=== PATIENT | female | born 1980 | race Caucasian/White ===

== ENCOUNTER 2016-12-01 09:30 | Outpatient (CLI) | payer BC, MEDICAID ==
[~2016-12-01] VITALS: Ht 149.9 cm; Wt 45.4 kg
[~2016-12-01 09:30] MED LIST: ACHD5005 PO; AGM875T PO; AMOX500C2 PO; CEFD300C3 PO; DICL50TA4 PO; FERR325C PO; FLC150T PO; FLT05NA16 NSEACH; FLUC200T45 PO; HYDR-3454 PO; HYDR-3720 PO; METH4TAB PO; NF-ESOM40C PO; NITR-65 PO; OMEP40CA36 PO; ONDA-42 PO; ONDA-43 PO; ONDA8TAB9 PO; ONDAN4ODT PO; PNT40TEC PO; PROM25SU43 RC; PTU50T PO; SCR1T1 PO
[2016-12-05] MEDS ORDERED: SUCR1TAB36 PO (11:08)
[2017-01-12] MEDS ORDERED: ONDA8TAB9 PO (14:23)
[2017-01-12] MEDS ORDERED: OXYC-202 PO (14:23)
== END 2016-12-01 10:06 ==
LOC: PREOP 09:30
PROVIDERS: ATTEND Surgery
DX: Z01.818 Encounter for other preprocedural examination (principal); K21.9 Gastro-esophageal reflux disease without esophagitis; K92.1 Melena

== ENCOUNTER 2016-12-05 09:25 | Day surgery (SDC) | payer BC, MEDICAID ==
[~2016-12-05] VITALS: Ht 149.9 cm; Wt 45.4 kg
[2016-12-05] MEDS ORDERED: NS IV 1000 ML 1,000 ML IV STA (09:38)
--- NOTE | 2016-12-05 09:47 | Progress Note-Pre Operative ---
Pre-Operative Progress Note H&P Reviewed The H&P was reviewed, patient examined and no changes noted. Date H&P Reviewed: Dec 05, 2016 Time H&P Reviewed: 09:46 Pre-Operative Diagnosis: epigastric abominal pain, blood in stools, reflux KASH GUADALUPE DO Dec 05, 2016 09:46
[2016-12-05] MEDS ORDERED: NS IV 1000 ML 1,000 ML ONE (09:55)
[2016-12-05] MEDS ORDERED: proPOfol 200 MG/20 ML (DIPRIVAN) VIAL IV ONE (10:23)
[2016-12-05 10:35] VITALS: BP 122/77
[2016-12-05] MEDS ORDERED: HURRICAINE EXT TUBE (BENZOCAINE) XX ONE (11:00)
--- NOTE | 2016-12-05 11:07 | Progress Note-Post Operative ---
Post-Operative Progess Note Pre-Operative Diagnosis epigastric abominal pain, blood in stools, reflux Post-Operative Diagnosis gastric polyps, hiatal hernia, normal colon Post-Op Procedure Note Date of Procedure: Dec 05, 2016 Name of Procedure: egd c biopsy, colonoscopy Procedure Note/Findings see note Anesthesia Type per mda Estimated blood loss (mL): none Specimen(s) collected antrum KASH GUADALUPE DO Dec 05, 2016 11:07
[2016-12-05] MEDS ORDERED: SUCR1TAB36 PO (11:08)
--- NOTE | 2016-12-05 11:09 | Discharge Inst-Simple/Standard ---
Discharge Inst-Standard Discharge Medications New, Converted or Re-Newed RX: Transmitted to Pharmacy Patient Instructions/Follow Up Plan of Care/Instructions/FU: 3 weeks Adri Activity as Tolerated: Yes Discharge Diet: Regular Diet (frequent small meals) KASH GUADALUPE DO Dec 05, 2016 11:09
[2016-12-05 11:20] VITALS: BP 103/71
[2016-12-05 11:50] VITALS: BP 112/73
[2016-12-05 12:02] VITALS: BP 112/73
[2016-12-05] MEDS ORDERED: HURRICAINE EXT TUBE (BENZOCAINE) ONE (12:08)
--- NOTE | 2016-12-06 09:58 | PROCEDURE REPORT ---
PROCEDURE PHYSICIAN: KASH GUADALUPE DATE OF PROCEDURE: 12/05/2016 PREOPERATIVE DIAGNOSIS: 1. Epigastric abdominal pain. 2. Blood in stools. 3. Reflux. POSTOPERATIVE DIAGNOSES: 1. Gastric polyp. 2. Hiatal hernia. 3. Normal colon. PROCEDURE: 1. EGD with biopsy. 2. Colonoscopy. SURGEON: Adri. ANESTHESIA: Per MDA. ESTIMATED BLOOD LOSS: None. COMPLICATIONS: None. INDICATIONS: The patient is a 36-year-old female who has been having epigastric abdominal pain and has a history of reflux. She feels that she is getting an ulcer. She has had it before. She also has been having intermittent episodes of blood in her stools that are more bright red. She was explained risk and benefits of procedures and wished to proceed with procedures. Consent was signed on the chart. PROCEDURE: The patient was taken to the endoscopy suite, placed left in the left lateral recumbent position. Timeout was performed. The scope was inserted in the mouth down the esophagus, stomach and into the duodenum without difficulty. There were no polyps, masses, or ulcerations within the duodenum. The scope was slowly retracted back into the stomach which had some small polyps present. Normal appearance. Biopsy of the antrum was obtained. There are no erythematous changes. No ulcerations present. The scope was retroflexed noting a small to moderate sized hiatal hernia. No other pathology noted. The scope was returned as normal position slowly withdrawn. There were no polyps, masses, ulcerations or erythema in the distal esophagus the remainder of the esophagus. The scope was then slowly retracted until completely removed. COLONOSCOPY: Digital rectal exam was performed. There were no palpable polyps, masses, ulcerations or fissures present. The scope was inserted in the rectum and advanced all of the way to the cecum with minimal difficulty. Prep was adequate with irrigation and suction. There were no polyps, masses or ulcerations within the cecum, ascending, transverse, descending or sigmoid colon. There are no mucosal changes as well. In the rectum, the scope was also retroflexed noting no other pathology. The scope was returned to its normal position and slowly withdrawn into completely remove. RECOMMENDATIONS: The patient will add on some Carafate 1 gram 4 times a day to see if this has any improvement on her symptoms. We also consider changing her to Protonix, rather than the omeprazole. The patient will follow-up in approximately 3 weeks to see how she is doing. She will need a repeat colonoscopy according to normal screening guidelines at age 50 unless there is family history of colon cancer which would be 10 years before that. Job ID: [id number] Dictated Date: 12/05/2016 11:13:49 Pantograph Operator Date: 12/06/2016 09:50:19 / marquez
[2017-01-12] MEDS ORDERED: ONDA8TAB9 PO (14:23)
[2017-01-12] MEDS ORDERED: OXYC-202 PO (14:23)
== END 2016-12-05 12:00 | disposition home or self-care (01) ==
LOC: ENDO 09:25
PROVIDERS: ATTEND Surgery
DX: K92.1 Melena (principal); K21.9 Gastro-esophageal reflux disease without esophagitis; K44.9 Diaphragmatic hernia without obstruction or gangrene; K31.7 Polyp of stomach and duodenum
CPT/HCPCS: 84703; 88305

== ENCOUNTER 2017-01-10 15:36 | Outpatient (CLI) | payer BC, MEDICAID ==
[~2017-01-10] VITALS: Ht 149.9 cm; Wt 50.8 kg
[~2017-01-10 15:36] MED LIST changes: +SUCR1TAB36 PO
[2017-01-10] MEDS ORDERED: PANT40TA2 PO (15:47)
[2017-01-10] MEDS ORDERED: NORE0.35 PO (15:47)
[2017-01-10 15:51] VITALS: BP 123/83
[2017-01-10 16:17] LABS: BASOPHILS # (AUTO) 0.1 10^3/uL (0.0-0.1); BASOPHILS % (AUTO) 1 % (0-10); EOSINOPHILS # (AUTO) 0.2 10^3/uL (0.0-0.3); EOSINOPHILS % (AUTO) 2 % (0-10); LYMPHOCYTES # (AUTO) 3.4 X 10^3 (1.0-4.0); LYMPHOCYTES % (AUTO) 35 % (12-44); MEAN CORPUSCULAR HEMOGLOBIN 29 PG (25-34); MEAN CORPUSCULAR HGB CONC 33 G/DL (32-36); MEAN CORPUSCULAR VOLUME 89 FL (80-99); MEAN PLATELET VOLUME 10.7 FL (7.4-10.4); MONOCYTES # (AUTO) 0.8 X 10^3 (0.0-1.0); MONOCYTES % (AUTO) 8 % (0-12); NEUTROPHILS # (AUTO) 5.3 X 10^3 (1.8-7.8); NEUTROPHILS % (AUTO) 54 % (42-75); PLATELET COUNT 327 10^3/uL (130-400); RED BLOOD COUNT 4.13 10^6/uL (4.35-5.85); RED CELL DISTRIBUTION WIDTH 12.9 % (10.0-14.5); WHITE BLOOD COUNT 9.7 10^3/uL (4.3-11.0)
[2017-01-12] MEDS ORDERED: OXYC-202 PO (14:23)
[2017-01-12] MEDS ORDERED: ONDA8TAB9 PO (14:23)
== END 2017-01-10 16:20 | disposition home or self-care (01) ==
LOC: PREOP 15:36
PROVIDERS: ATTEND Obstetrics & Gynecology
DX: Z01.812 Encounter for preprocedural laboratory examination (principal); Z11.2 Encounter for screening for other bacterial diseases; R10.2 Pelvic and perineal pain; Z87.42 Personal history of other diseases of the female genital tract
CPT/HCPCS: 36415; 85025; 87081

== ENCOUNTER 2017-01-12 12:21 | Day surgery (SDC) | payer BC, MEDICAID ==
[~2017-01-12] VITALS: Ht 149.9 cm; Wt 50.8 kg
[~2017-01-12 12:21] MED LIST changes: +NORE0.35 PO; +PANT40TA2 PO
[2017-01-12] MEDS ORDERED: ceFAZolin 1 GM/NS 50 ML IVPB IV ONE ×2 (12:45)
[2017-01-12] MEDS ORDERED: CATHETER FLUSH 10 ML SYR IV PRN (12:45)
[2017-01-12] MEDS ORDERED: ceFAZolin 1,000 MG (ANCEF) VIAL ONE (13:08)
[2017-01-12 13:09] VITALS: BP 112/60
[2017-01-12] MEDS ORDERED: NS (IVPB) 50 ML ONE (13:09)
[2017-01-12] MEDS ORDERED: ONDANSETRON 4 MG/2 ML (SDV) Z0FRAN IV ONE (13:15)
[2017-01-12] MEDS ORDERED: FAMOTIDINE 20MG/2ML IV (PEPCID) IV ONE (13:15)
[2017-01-12] MEDS ORDERED: SCOPOLAMINE 1.5 MG (TRANSDERM-SCOP) PATCH TOP ONE (13:15)
[2017-01-12] MEDS: LACTATED RINGERS 1,000 ML IV PRN ×3 (13:21→15:30)
[2017-01-12] MEDS ORDERED: BUP/EPI 0.25% 1:200,000 (MARCAINE) 30 ML VIAL ONE (13:29)
[2017-01-12] MEDS ORDERED: proPOfol 200 MG/20 ML (DIPRIVAN) VIAL IV ONE (13:30)
[2017-01-12] MEDS ORDERED: fentaNYL INJECTION 100 MCG/2 ML AMP ONE ×2 (13:30→15:36)
[2017-01-12] MEDS ORDERED: ROCURONIUM 50 MG/5 ML (ZEMURON) VIAL IV ONE (13:30)
[2017-01-12] MEDS ORDERED: MIDAZOLAM 2 MG/2 ML (VERSED) VIAL ONE (13:30)
--- NOTE | 2017-01-12 14:21 | Progress Note-Pre Operative ---
Pre-Operative Progress Note H&P Reviewed The H&P was reviewed, patient examined and no changes noted. Date H&P Reviewed: Jan 12, 2017 Time H&P Reviewed: 14:20 Pre-Operative Diagnosis: chronic pelvic pain with a history of endometriosis/ DUB/menorrhagia TAMMY FRANCO MD Jan 12, 2017 2:21 pm
[2017-01-12] MEDS ORDERED: OXYC-202 PO (14:23)
[2017-01-12] MEDS ORDERED: ONDA8TAB9 PO (14:23)
--- NOTE | 2017-01-12 14:25 | Discharge Instructions ---
Discharge Instructions Discharge Medications New, Converted or Re-Newed RX: RX on Chart Patient Instructions Patient Instructions: as directed Return to The Hospital For: as directed Activity & Diet Discharge Diet: No Restrictions Activity as Tolerated: No Orders-Post D/C & Referrals Follow Up Appt: Call to make follow up appt. for patient in 1 weeks. Activity: Rest for 24 hours, than as tolerated. Wound Care: May remove Band-Aid tomorrow. Replace as desired. Keep incisions clean and dry. Wash daily with soap and water. Diet: As tolerated-Clear Liquids only if nauseated. May shower or tub bathe as desired. No driving for 24 hours, no alcoholic beverages for 24 hours, and nothing per vagina (no tampons, douching, or intercourse) for 2 weeks. Patient to return to the clinic as soon as possible for: Temperature greater than 101F, Severe Pain, Foul discharge from incision or vagina, Excessive Bleeding (more than a period). TAMMY FRANCO MD Jan 12, 2017 2:25 pm
[2017-01-12] MEDS ORDERED: KETOROLAC 30 MG/ML VIAL IVP ONE (14:30)
[2017-01-12] MEDS ORDERED: MEPERIDINE (DEMEROL) INJ 100 MG/ML IM ONE (14:30)
[2017-01-12] MEDS ORDERED: ESTROGENS CONJ IV 25 MG/5 ML (PREMARIN) VIAL IVP ONE (14:30)
[2017-01-12] MEDS ORDERED: DEXAMETHASONE PF 10 MG/ML (DECADRON) VIAL ONE (15:01)
[2017-01-12] MEDS ORDERED: LACTATED RINGERS 1,000 ML IV ONE ×3 (15:01→15:35)
[2017-01-12] MEDS ORDERED: ONDANSETRON 4 MG/2 ML (SDV) Z0FRAN ONE ×2 (15:01→15:35)
[2017-01-12] MEDS ORDERED: SEVOFLURANE (ULTANE) 15 ML INHAL SOLN ONE ×5 (15:01→15:36)
[2017-01-12] MEDS ORDERED: ESTROGENS CONJ IV 25 MG/5 ML (PREMARIN) VIAL ONE (15:30)
[2017-01-12] MEDS ORDERED: KETOROLAC 30 MG/ML VIAL ONE ×2 (15:30→15:35)
[2017-01-12] MEDS ORDERED: WATER (STERILE) FOR INJECTION 10 ML ONE (15:30)
[2017-01-12] MEDS ORDERED: GLYCOPYRROLATE 0.2 MG/ML (ROBINUL) 2 ML VIAL ONE (15:43)
[2017-01-12] MEDS ORDERED: NEOSTIGMINE (BLOXIVERZ ) 1 MG/1ML 10 ML VIAL ONE (15:43)
[2017-01-12] MEDS: morphine INJ 10 MG/ML 1ML (SYR OR VIAL) IVP PRN ×2 (16:10→16:16)
[2017-01-12] MEDS ORDERED: MEPERIDINE (DEMEROL) INJ 50 MG/ML IVP PRN (16:15)
[2017-01-12] MEDS ORDERED: fentaNYL INJECTION 100 MCG/2 ML AMP IVP PRN (16:15)
[2017-01-12] MEDS ORDERED: ONDANSETRON 4 MG/2 ML (SDV) Z0FRAN IVP PRN (16:15)
[2017-01-12] MEDS ORDERED: HYDROmorphone (DILAUDID) 2 MG/ML VIAL IVP PRN (16:15)
[2017-01-12 16:50] VITALS: BP 109/61
[2017-01-12] MEDS: oxyCODONE/APAP 10/325MG (PERCOCET 10) TABLET PO PRN (17:01)
[2017-01-12] MEDS: D5 LR IV SOLUTION 1,000 ML IV SCH ×3 (17:31→22:23)
[2017-01-12] MEDS: ONDANSETRON 4 MG/2 ML (SDV) Z0FRAN IVP PRN ×2 (18:13→23:10)
[2017-01-12 19:10] VITALS: BP 96/53
[2017-01-13] VITALS: BP 112/72
[2017-01-13] MEDS: oxyCODONE/APAP 10/325MG (PERCOCET 10) TABLET PO PRN ×2 (00:44→10:35)
[2017-01-13] MEDS: D5 LR IV SOLUTION 1,000 ML IV SCH ×3 (00:45→08:50)
[2017-01-13] MEDS: ONDANSETRON 4 MG/2 ML (SDV) Z0FRAN IVP PRN ×2 (02:40→10:34)
[2017-01-13 04:00] VITALS: BP 111/76
--- NOTE | 2017-01-13 06:31 | Progress Note-Standard ---
Standard Progress Note Progress Notes/Assess & Plan Progress/Assessment & Plan patient is without complaint. She is ambulating, voiding, tolerating by mouth well, has good pain control. Her nausea has resolved. Vital Signs Date Time Temp Pulse Resp B/P (MAP) Pulse Ox O2 Delivery O2 Flow Rate FiO2 01/13/17 00:00 98.0 66 18 112/72 95 Room Air 01/12/17 21:00 Room Air 01/12/17 19:10 97.0 60 16 96/53 99 Room Air 01/12/17 18:26 Room Air 01/12/17 16:50 97.8 61 18 109/61 98 Room Air 01/12/17 13:09 98.6 60 18 112/60 100 Room Air I & O 01/13/17 07:00 Intake Total 2450 ml Output Total 200 ml Balance 2250 ml vital signs are stable. Patient afebrile. The abdomen is benign. There is normal postoperative tenderness. Extremities show no clubbing cyanosis. There is no Homans sign. Assessment and plan postoperative day number 1 doing well. Plan is for discharge home with follow-up in clinic. Final Diagnosis chronic pelvic pain/endometriosis/right hydrosalpinx TAMMY FRANCO MD Jan 13, 2017 6:31 am
[2017-01-13 08:30] VITALS: BP 95/58
--- NOTE | 2017-01-13 10:57 | OPERATIVE REPORT ---
DATE OF SERVICE: 01/12/2017 PREOPERATIVE DIAGNOSIS: Chronic pelvic pain with a history of endometriosis and right hydrosalpinx. POSTOPERATIVE DIAGNOSIS: Chronic pelvic pain with a history of endometriosis and right hydrosalpinx with recurrent endometriosis, pelvic adhesions, and right hydrosalpinx. The patient also in preop had dysfunctional uterine bleeding and menorrhagia and in the postop had the same. OPERATIVE PROCEDURE: D and C followed by a laparoscopic right salpingectomy, laparoscopic adhesiolysis, and laparoscopic destruction of endometriosis. OPERATIVE DESCRIPTION: With the patient in the supine position and under satisfactory general anesthesia, she was repositioned dorsal lithotomy position in the [facility] and prepped and draped in the usual fashion for abdominal and vaginal surgery. The urinary bladder was emptied with a straight catheter. Weighted speculum placed through the posterior fornix of the vagina, cervix exposed and grasped anteriorly with a single tooth tenaculum. The uterus was sounded to 9 cm with the uterine sound. The cervix was then serially dilated with Earl dilators to a #20 Earl. The endometrial cavity was then sharply curettaged in all 4 quadrants to good uterine cri with a sharp curette. The tissue obtained was sent to pathology for permanent section. The uterine manipulator was then placed in the ____ there. The patient was brought in the low dorsal lithotomy position with the speculum and tenaculum removed. A 5 mm incision made in the patient's left upper quadrant. Veress needle was placed through that incision, correct placement confirmed with the water drop test. The abdomen was insufflated with 2.4 liters of carbon dioxide. Then the Veress needle was removed, and a 5 mm Optiview laparoscopic port placed. The patient was placed in Trendelenburg allowing the bowels to ____ out of the pelvis. The abdominal wall was transilluminated and ports of 12 mm and 5 mm were placed supraumbilically and suprapubically. All 3 port sites were infiltrated with 0.25% Marcaine with epinephrine prior to incision. The uterus was densely adherent to the anterior lower wall and over the occlusion obstructing the visualization of the bladder. The round ligaments were adherent to the pelvic sidewalls. The right fallopian tube, the proximal 2/3 was involved in an approximately 2 cm dilated hydrosalpinx. There was endometriosis along the fallopian tube. There was endometriosis causing the fallopian tube to be adherent to the right ovary. The left tube was normal. There was a corpus luteal cyst on the left that ruptured during the process of inspecting it, releasing an aliquot of clear straw yellow fluid. There were adhesions of the sigmoid to the left pelvic brim, obstructing visualization of the tube and ovary. These adhesions were first taken free and then with the tube and ovary visualized, supple endometriosis implants on the left fallopian tube were destroyed. The cul-de-sac was examined. There was no abnormal pathology noted. The right fallopian tube was grasped and elevated because of the persistent hydrosalpinx that had been noted on a previous surgery she had requested that the fallopian tube be removed and that was deemed to be appropriate intervention at this point. The fallopian tube was resected by dividing across the mesosalpinx to the base of the salpinx, and then an Endoloop was placed across the base of the fallopian tube and secured, and then the fallopian tube was resected free and brought out through the umbilical port. The patient's appendix was surgically absent. That site appeared normal. The endometrial implants and the ovarian fossa were touched were electrocautery to destroy them. the adhesions on the anterior surface of the uterus were taken free to increase the mobility of the organ that was not taken completely free down the bladder from the lower uterine segment because the dense nature of these adhesions and the likelihood that without hysterectomy she was going to form potentially even worse adhesions. So the balance of the adhesions were left in situ. The pelvis was irrigated and examined. Hemostasis was at complete with no further abnormal pathology and the procedure was terminated. The operative instruments were removed under direct vision, as were the ports. The abdomen was evacuated with insufflating gas in the process. The skin incisions were closed with nylon sutures. The fascia of the supraumbilical incision was closed with [id number] suture of 2-0 Vicryl. The uterine manipulator bowl was drained. The instruments were removed from the uterus and from the vagina. Speculum was replaced in the vagina. Some bleeding from the puncture sites on the anterior cervical lip. This was touched with silver nitrate to effect hemostasis. With hemostasis assured and sponge and needle counts correct, estimated blood loss minimal, the procedure was terminated. Sponge and needle counts were correct at the end of the procedure. The patient tolerated the procedure well and was uneventfully awakened from general anesthesia and transferred to the recovery room in stable condition. Job ID: [id number] DocumentID: [id number] Dictated Date: 01/12/2017 15:39:10 Sheet Metal Operator Date: 01/12/2017 18:13:45 Dictated By: TAMMY FRANCO MD
[2017-01-13 12:00] VITALS: BP 100/60
[2017-01-13 15:58] VITALS: BP 97/55
[2017-01-13 17:09] VITALS: BP 100/60
== END 2017-01-13 17:15 | disposition home or self-care (01) ==
LOC: SDC 12:21 → 4TH 17:49 → SDC 01-13 17:15
PROVIDERS: ATTEND Obstetrics & Gynecology
DX: N80.2 Endometriosis of fallopian tube (principal); N70.11 Chronic salpingitis; N93.8 Other specified abnormal uterine and vaginal bleeding; N92.0 Excessive and frequent menstruation with regular cycle; N83.12 Corpus luteum cyst of left ovary; N73.6 Female pelvic peritoneal adhesions (postinfective)
CPT/HCPCS: 84703; 88305

== ENCOUNTER 2017-03-04 04:49 | Emergency (ER) | payer BC, MEDICAID ==
[~2017-03-04] VITALS: Ht 149.9 cm; Wt 48.5 kg
[~2017-03-04 04:49] MED LIST changes: +OXYC-202 PO
[2017-03-04] MEDS ORDERED: NS IV 1000 ML 1,000 ML IV STA (05:06)
[2017-03-04] MEDS ORDERED: fentaNYL INJECTION 100 MCG/2 ML AMP IVP STA (05:06)
[2017-03-04 05:14] LABS: BASOPHILS # (AUTO) 0.1 10^3/uL (0.0-0.1); BASOPHILS % (AUTO) 0 % (0-10); EOSINOPHILS # (AUTO) 0.2 10^3/uL (0.0-0.3); EOSINOPHILS % (AUTO) 2 % (0-10); LYMPHOCYTES # (AUTO) 2.4 X 10^3 (1.0-4.0); LYMPHOCYTES % (AUTO) 17 % (12-44); MEAN CORPUSCULAR HEMOGLOBIN 28 PG (25-34); MEAN CORPUSCULAR HGB CONC 33 G/DL (32-36); MEAN CORPUSCULAR VOLUME 86 FL (80-99); MEAN PLATELET VOLUME 10.2 FL (7.4-10.4); MONOCYTES # (AUTO) 1.1 X 10^3 (0.0-1.0); MONOCYTES % (AUTO) 8 % (0-12); NEUTROPHILS # (AUTO) 10.3 X 10^3 (1.8-7.8); NEUTROPHILS % (AUTO) 73 % (42-75); PLATELET COUNT 357 10^3/uL (130-400); RED BLOOD COUNT 4.41 10^6/uL (4.35-5.85); RED CELL DISTRIBUTION WIDTH 13.7 % (10.0-14.5); WHITE BLOOD COUNT 14.1 10^3/uL (4.3-11.0)
[2017-03-04] MEDS ORDERED: ONDANSETRON 4 MG/2 ML (SDV) Z0FRAN IVP ONE (05:15)
--- NOTE | 2017-03-04 05:30 | ED Abdominal Pain ---
General Chief Complaint: Abdominal/GI Problems Stated Complaint: VOMITING Nursing Triage Note: PT TO ED 5 W/ MOTHER FOR C/O N/V/D ET ABD PAIN ONSET 0300 THIS AM. REPORTS SYMPTOMS ONSET AFTER EATING AT PICKLED [employer]S LAST NOC. NO OTHER C/O VOICED Sepsis Screen: No Definite Risk Source of Information: Patient Exam Limitations: No Limitations History of Present Illness Time Seen By Provider: 05:00 Initial Comments Here with onset of abdominal pain that comes in waves. Started about 3 a.m. and is quite severe when it happens. When the pain occurs, this causes vomiting. She reports having at least 3 bowel movements that are becoming progressively looser tonight. Denies fever or chills. Denies blood in her urine or stool. Timing/Duration: 1-3 Hours Severity/Quality: Moderate Location: Epigastric Radiation: RUQ, LUQ Activities at Onset: None Modifying Factors: Worsens With Eating Associated Symptoms: No Back Pain, No Chest Pain, No Fever/Chills, Nausea/ Vomiting, No Shortness of Air, No Swelling/Mass in Abdomen, No Weakness Allergies and Home Medications Allergies Coded Allergies: No Known Drug Allergies (Unverified , 01/10/17) Home Medications Norethindrone 0.35 Mg Tablet, 0.35 MG PO DAILY, (Reported) Ondansetron 8 Mg Tab.rapdis, 8 MG PO PD PRN for q4h, #20 Prescribed by: TAMMY BREEN on 01/12/17 1423 Oxycodone HCl/Acetaminophen 1 Each Tablet, 1-2 TAB PO Q4H PRN for PAIN, #60 Ref 0 Prescribed by: TAMMY BREEN on 01/12/17 1423 Pantoprazole Sodium 40 Mg Tablet.dr, 40 MG PO DAILY, (Reported) Review of Systems Constitutional: see HPI, No chills, No fever Respiratory: No Symptoms Reported Cardiovascular: No Symptoms Reported Gastrointestinal: See HPI, Abdominal Pain, Diarrhea, Nausea, Vomiting Genitourinary: No Symptoms Reported Musculoskeletal: no symptoms reported Psychiatric/Neurological: No Symptoms Reported All Other Systems Reviewed Negative Unless Noted: Yes Past Waxcqrk-Zwqnzw-Ogedon Hx Patient Social History Alcohol Use: Denies Use Recreational Drug Use: No Smoking Status: Never a Smoker Recent Foreign Travel: No Contact w/Someone Who Travel: No Recent Infectious Disease Expo: No Recent Hopitalizations: No Immunizations Up To Date Tetanus Booster (TDap): Unknown PED Vaccines UTD: Yes Date of Influenza Vaccine: Jul 22, 2014 Seasonal Allergies Seasonal Allergies: No Surgeries HX Surgeries: Yes (ECTOPIC REMOVED, C/S X2, DX LAPAROSCOPY, ) Surgeries: Appendectomy, Section, Gallbladder Respiratory Hx Respiratory Disorders: No Cardiovascular Hx Cardiac Disorders: No (HX. OF MURMUR ; BORN WITH MURMUR) Cardiac Disorders: Heart Murmur Neurological Hx Neurological Disorders: Yes Neurological Disorders: Headaches /Migraines Reproductive System Hx Reproductive Disorders: Yes (CPP, ENOMETRIOSIS) Sexually Transmitted Disease: Yes (HPV) Female Reproductive Disorders: Endometriosis, Ovarian Cyst Genitourinary Hx Genitourinary Disorders: No Gastrointestinal Hx Gastrointestinal Disorders: Yes Gastrointestinal Disorders: Gastroesophageal Reflux, Ulcer Musculoskeletal Hx Musculoskeletal Disorders: Yes (FROM ENDOMETRIOSIS) Musculoskeletal Disorders: Chronic Back Pain Endocrine Hx Endocrine Disorders: Yes (BOARDERLINE) HEENT HX ENT Disorders: No (CONTACTS) Loss of Vision: Bilateral Hearing Impairment: Denies Cancer Hx Cancer: No Psychosocial Hx Psychiatric Problems: Yes Behavioral Health Disorders: Anxiety Integumentary HX Skin/Integumentary Disorder: No Blood Transfusions Hx Blood Disorders: No Adverse Reaction to a Blood Tr: No (N/A) Reviewed Nursing Assessment Reviewed/Agree w Nursing PMH: Yes Family Medical History Significant Family History: No Pertinent Family Hx Physical Exam Vital Signs VS - Last 72 Hours, by Label 03/04/17 04:51 Temp 98.1 Pulse 79 Resp 20 B/P (MAP) 140/99 Pulse Ox 99 O2 Delivery Room Air Capillary Refill : Less Than 3 Seconds General Appearance: WD/WN, moderate distress (abdominal pain) HEENT: PERRL/EOMI, pharynx normal Neck: full range of motion, supple Respiratory: lungs clear, normal breath sounds Cardiovascular: regular rate, rhythm, no murmur Peripheral Pulses: 2+ Dorsalis Pedis (R), 2+ Left Dors-Pedis (L), 2+ Radial Pulses (R), 2+ Radial Pulses (L) Gastrointestinal: soft, tenderness (upper abdomen bilaterally with greatest pain epigastric) Extremities: non-tender, normal inspection Back: normal inspection, no CVA tenderness, no vertebral tenderness Neurologic/Psychiatric: alert, oriented x 3 Skin: normal color, warm/dry Progress/Results/Core Measures Results/Orders Lab Results Laboratory Tests Test 03/04/17 05:03 Range/Units White Blood Count 14.1 H 4.3-11.0 10^3/uL Red Blood Count 4.41 4.35-5.85 10^6/uL Hemoglobin 12.4 11.5-16.0 G/DL Hematocrit 38 35-52 % Mean Corpuscular Volume 86 80-99 FL Mean Corpuscular Hemoglobin 28 25-34 PG Mean Corpuscular Hemoglobin Concent 33 32-36 G/DL Red Cell Distribution Width 13.7 10.0-14.5 % Platelet Count 357 130-400 10^3/uL Mean Platelet Volume 10.2 7.4-10.4 FL Neutrophils (%) (Auto) 73 42-75 % Lymphocytes (%) (Auto) 17 12-44 % Monocytes (%) (Auto) 8 0-12 % Eosinophils (%) (Auto) 2 0-10 % Basophils (%) (Auto) 0 0-10 % Neutrophils # (Auto) 10.3 H 1.8-7.8 X 10^3 Lymphocytes # (Auto) 2.4 1.0-4.0 X 10^3 Monocytes # (Auto) 1.1 H 0.0-1.0 X 10^3 Eosinophils # (Auto) 0.2 0.0-0.3 10^3/uL Basophils # (Auto) 0.1 0.0-0.1 10^3/uL Neutrophils % (Manual) 70 % Lymphocytes % (Manual) 16 % Monocytes % (Manual) 6 % Eosinophils % (Manual) 2 % Basophils % (Manual) 0 % Band Neutrophils 0 % Reactive Lymphocytes 6 % Toxic Granulation 1+ Blood Morphology Comment NORMAL Sodium Level 141 135-145 MMOL/L Potassium Level 3.9 3.6-5.0 MMOL/L Chloride Level 108 H 98-107 MMOL/L Carbon Dioxide Level 21 21-32 MMOL/L Anion Gap 12 5-14 MMOL/L Blood Urea Nitrogen 13 7-18 MG/DL Creatinine 0.76 0.60-1.30 MG/DL Estimat Glomerular Filtration Rate > 60 BUN/Creatinine Ratio 17 Glucose Level 94 70-105 MG/DL Calcium Level 9.4 8.5-10.1 MG/DL Total Bilirubin 0.5 0.1-1.0 MG/DL Aspartate Amino Transf (AST/SGOT) 18 5-34 U/L Alanine Aminotransferase (ALT/SGPT) 24 0-55 U/L Alkaline Phosphatase 61 40-136 U/L Total Protein 7.2 6.4-8.2 G/DL Albumin 3.9 3.2-4.5 G/DL Amylase Level 61 25-125 U/L Lipase 21 8-78 U/L My Orders Orders - RANDOLPH LARA MD Amylase (03/04/17 05:06) Cbc With Automated Diff (03/04/17 05:06) Comprehensive Metabolic Panel (03/04/17 05:06) Lipase (03/04/17 05:06) Ondansetron Injection (Zofran Injectio (03/04/17 05:15) Ns Iv 1000 Ml (Sodium Chloride 0.9%) (03/04/17 05:06) Saline Lock/Iv-Start (03/04/17 05:06) Fentanyl Injection (Sublimaze Injection (03/04/17 05:06) Manual Differential (03/04/17 05:03) Acute Abd Series (03/04/17 05:55) Dicyclomine Capsule (Bentyl Capsule) (03/04/17 06:00) Medications Given in ED Current Medications Medications Dose Ordered Sig/Carlos Route Start Time Stop Time Status Last Admin Dose Admin Ondansetron HCl 4 mg ONCE ONCE IVP 03/04/17 05:15 03/04/17 05:16 DC 03/04/17 05:15 4 MG Vital Signs/I&O Vital Sign - Last 12Hours 03/04/17 04:51 Temp 98.1 Pulse 79 Resp 20 B/P (MAP) 140/99 Pulse Ox 99 O2 Delivery Room Air Blood Pressure Mean: 113 Progress Note : Progress Note Seen and evaluated. IV, labs, normal saline 1 L bolus, fentanyl 50 g IV ordered. Acute abdominal series ordered. Monitor patient. Patient is improved after fentanyl. Bentyl 20 mg by mouth ordered. Monitor patient. 0650 : Patient much better. No acute findings on acute abdominal series. Discharged home with return precautions. Patient verbalize understanding instructions and agreement with plan. Diagnostic Imaging Diagonstic Imaging: Xray Plain Films/CT/US/NM/MRI: chest, abdomen Comments No acute findings. Reviewed: Reviewed by Me Departure Impression Impression: Primary Impression: Epigastric abdominal pain Disposition: HOME, SELF-CARE Condition: Improved Departure-Patient Inst. Decision time for Depature: 06:57 Referrals: ENZO CYR MD (PCP) Primary Care Physician Patient Instructions: Acute Abdomen (Belly Pain), Adult (DC) Add. Discharge Instructions: All discharge instructions reviewed with patient and/or family. Voiced understanding. Take medications as directed. Follow-up with your doctor this week for recheck and further evaluation. Return for worsening, fever, vomiting or weakness, breathing problems or other concerns as needed. Scripts Dicyclomine HCl (Dicyclomine HCl) 20 Mg Tablet 20 MG PO Q6H Y for ABDOMINAL PAIN, #45 TAB 0 Refills Prov: RANDOLPH LARA MD 03/04/17 RANDOLPH LARA MD Mar 04, 2017 05:30
[2017-03-04 05:44] LABS: ALANINE AMINOTRANSFERASE 24 U/L (0-55); ALBUMIN 3.9 G/DL (3.2-4.5); AMYLASE 61 U/L (25-125); ANION GAP 12 MMOL/L (5-14); ASPARTATE AMINO TRANSFERASE 18 U/L (5-34); BILIRUBIN,TOTAL 0.5 MG/DL (0.1-1.0); BLOOD UREA NITROGEN 13 MG/DL (7-18); BUN/CREATININE RATIO 17; CALCIUM 9.4 MG/DL (8.5-10.1); CARBON DIOXIDE 21 MMOL/L (21-32); CHLORIDE 108 MMOL/L (98-107); CREATININE SERUM 0.76 MG/DL (0.60-1.30); GFR ESTIMATED > 60; GLUCOSE 94 MG/DL (70-105); LIPASE 21 U/L (8-78); POTASSIUM 3.9 MMOL/L (3.6-5.0); SODIUM 141 MMOL/L (135-145); TOTAL PROTEIN 7.2 G/DL (6.4-8.2)
[2017-03-04 05:48] LABS: BAND NEUTROPHILS 0 %; LYMPHOCYTES % (MANUAL) 16 %; NEUTROPHILS % (MANUAL) 70 %
[2017-03-04 05:49] LABS: BASOPHILS % (MANUAL) 0 %; EOSINOPHILS % (MANUAL) 2 %; REACTIVE LYMPHOCYTES 6 %
[2017-03-04] MEDS ORDERED: DICYCLOMINE 10 MG (BENTYL) CAP PO SCH (06:00)
[2017-03-04] MEDS ORDERED: DICY20TA10 PO (06:58)
[2017-03-04 07:05] VITALS: BP 132/64
--- NOTE | 2017-03-04 10:24 | Diagnostic Imaging Report ---
INDICATION: Nausea, vomiting, diarrhea and abdominal pain for 3 hours. EXAMINATION: Abdomen series dated 03/04/2017. COMPARISON: 02/10/2013 FINDINGS: Chest is unremarkable. There is no free air beneath the diaphragm. Scattered air and stool through the colon to the rectosigmoid noted. There are clips in the right upper quadrant consistent with previous cholecystectomy. A more laterally located linear hyperdensity is noted of uncertain significance. This could represent a separate clip with a recently swallowed material difficult to exclude clinical correlation recommended. IMPRESSION: 1. Nonobstructive bowel gas pattern with negative chest. 2. Nonspecific linear density lateral to the clips in the right upper quadrant see above discussion. Dictated by: Dictated on workstation # [id number]
== END 2017-03-04 07:05 | disposition home or self-care (01) ==
LOC: EDUNIT# 04:49 → ER 04:50
DX: R10.13 Epigastric pain (principal); K21.9 Gastro-esophageal reflux disease without esophagitis; Z90.49 Acquired absence of other specified parts of digestive tract
CPT/HCPCS: 36415; 74022; 80053; 82150; 83690; 85007; 85027; 99282

== ENCOUNTER → 2017-05-29 | Outpatient (CLI) | payer BC, MEDICAID ==
[~2017-05-29] MED LIST changes: +DICY20TA10 PO
--- NOTE | 2017-05-31 08:19 | Diagnostic Imaging Report ---
INDICATION: Digital mammogram bilateral screening. This is the patient's baseline study. At this time, there are no current complaints. The current study was also evaluated with a Computer Aided Detection (CAD) system. FINDINGS: The fibroglandular tissue in both breasts is heterogeneously dense. This does limit the sensitivity of this exam. There is no primary or secondary sign of malignancy noted. The tomographic views were also unremarkable for malignancy. IMPRESSION: There is no evidence of malignancy. ACR BI-RADS Category 1: Negative. Result letter will be mailed to the patient. Note: At least 10% of breast cancer is not imaged by mammography. Dictated by: Dictated on workstation # [id number]
== END ==
LOC: RAD 08:48
PROVIDERS: ATTEND Obstetrics & Gynecology
DX: Z12.31 Encounter for screening mammogram for malignant neoplasm of breast (principal)
CPT/HCPCS: 77067

== ENCOUNTER 2018-01-10 13:59 | Emergency (ER) | payer BC, MEDICAID ==
[~2018-01-10] VITALS: Ht 149.9 cm; Wt 46.7 kg
[~2018-01-10 13:59] MED LIST changes: -NORE0.35 PO; +NORE0.3536 PO
[2018-01-10] MEDS ORDERED: HYDROcodone/APAP 5 MG/325 MG (LORTAB) TAB PO ONE (14:15)
[2018-01-10] MEDS ORDERED: HYDR-757 PO (14:15)
[2018-01-10] MEDS ORDERED: LIDOCAINE 2% 20 ML (XYLOCAINE) VIAL INJ ONE (14:15)
--- NOTE | 2018-01-10 14:16 | ED Integumentary General ---
General Stated Complaint: ABSCESS ON REAREND Source: patient Exam Limitations: no limitations History of Present Illness Date Seen by Provider: Jan 10, 2018 Time Seen by Provider: 14:11 Initial Comments to ER come in by mother per private vehicle with reports of an abscess to the left buttock. This is been present for about 3 days. She is currently on Bactrim and was[facility] by [facility]. She has not yet had incision and drainage done. She denies fevers chills nausea or vomiting. Also a few days ago she developed an erythematous papulovesicular rash to the right lateral chest wall starting at the midline of her back wrapping around the side of the chest to the center. She is on acyclovir for this. She is not on anything for pain currently. Timing/Duration: just prior to arrival Severity: moderate Allergies and Home Medications Allergies Coded Allergies: No Known Drug Allergies (Unverified , 01/10/17) Home Medications Dicyclomine HCl 20 Mg Tablet, 20 MG PO Q6H PRN for ABDOMINAL PAIN Prescribed by: RANDOLPH LARA on 03/04/17 0658 Hydrocodone/Acetaminophen 1 Each Tablet, 1 EACH PO Q4H PRN for PAIN-MODERATE TO SEVERE Prescribed by: ALIYA ELY on 01/10/18 1415 Norethindrone 0.35 Mg Tablet, 0.35 MG PO DAILY, (Reported) Ondansetron 8 Mg Tab.rapdis, 8 MG PO PD PRN for q4h Prescribed by: TAMMY BREEN on 01/12/17 1423 Oxycodone HCl/Acetaminophen 1 Each Tablet, 1-2 TAB PO Q4H PRN for PAIN Prescribed by: TAMMY BREEN on 01/12/17 1423 Pantoprazole Sodium 40 Mg Tablet.dr, 40 MG PO DAILY, (Reported) Patient Home Medication List Home Medication List Reviewed: Yes Constitutional: see HPI EENTM: see HPI Respiratory: no symptoms reported Cardiovascular: no symptoms reported Genitourinary: no symptoms reported Musculoskeletal: see HPI Skin: see HPI, lesions Psychiatric/Neurological: No Symptoms Reported Past Hfrlwmx-Ddbxen-Ldlokd Hx Patient Social History Recent Foreign Travel: No Contact w/Someone Who Travel: No Recent Hopitalizations: No Immunizations Up To Date Tetanus Booster (TDap): Unknown PED Vaccines UTD: Yes Date of Influenza Vaccine: Jul 22, 2014 Seasonal Allergies Seasonal Allergies: No Past Medical History Surgeries: Yes (ECTOPIC REMOVED, C/S X2, DX LAPAROSCOPY, SALPINGECTOMY) Appendectomy, Section, Gallbladder Respiratory: No Cardiac: No (HX. OF MURMUR ; BORN WITH MURMUR) Heart Murmur Neurological: Yes Headaches /Migraines Reproductive Disorders: Yes (CPP, ENOMETRIOSIS) Female Reproductive Disorders: Endometriosis, Ovarian Cyst Sexually Transmitted Disease: Yes (HPV) Gastrointestinal: Yes Gastroesophageal Reflux, Ulcer Musculoskeletal: Yes (FROM ENDOMETRIOSIS) Chronic Back Pain Endocrine: Yes (BOARDERLINE) Loss of Vision: Bilateral Hearing Impairment: Denies Cancer: No Psychosocial: Yes Anxiety Integumentary: No Blood Disorders: No Adverse Reaction/Blood Tranf: No (N/A) Family Medical History No Pertinent Family Hx Physical Exam Vital Signs Capillary Refill : General Appearance: WD/WN, no apparent distress HEENT: PERRL/EOMI, normal ENT inspection Neck: non-tender, full range of motion Cardiovascular: regular rate, rhythm, no murmur, other (she does have a papular rash to the right lateral chest wall starting at the spine and wrapping around the right side of the chest terminating just beneath the right breast. She states that the anterior portion of the rash is pruritic, the posterior portion is more painful. I agree with the diagnosis of herpes zoster.) Respiratory: no respiratory distress Extremities: normal range of motion, non-tender Neurologic/Psychiatric: alert, normal mood/affect, oriented x 3 Skin: normal color, warm/dry Skin Problem Character: abscess (there is a 2 cm indurated area to the left buttock over the issue him, this is not perianal. There is a small punctum in the center but without drainage. Around the 2 cm of induration is an additional 3 cm of erythema.) Procedures/Interventions I&D : Blade Size: 11 Progress area was anesthetized with 1 mL of 2% lidocaine without epinephrine. A single stab incision 0.5-1 cm was made with an 11 blade scalpel over the punctum of this wound. Somesanguinous material was expressed. Loculations were then broken up with blunt end of a sterile Q-tip. The cavity was a bit deeper than my incisions I believe there was a fluid collection here. However there was no purulent appearing material. This was covered with gauze, she was instructed to continue warm compresses, continue Bactrim and return for any worsening symptoms. Progress/Results/Core Measures My Orders Orders - ALIYA ELY APRN Wound Culture (01/10/18 14:10) Hydrocodone/Apap 5/325 Tablet (Lortab 5 (01/10/18 14:15) Lidocaine 2% Injection 20 Ml (Xylocaine (01/10/18 14:15) Medications Given in ED Current Medications Medications Dose Ordered Sig/Carlos Route Start Time Stop Time Status Last Admin Dose Admin Acetaminophen/ Hydrocodone Bitart 1 tab ONCE ONCE PO 01/10/18 14:15 01/10/18 14:16 DC 01/10/18 14:16 1 TAB Lidocaine HCl 20 ml ONCE ONCE INJ 01/10/18 14:15 01/10/18 14:16 DC 01/10/18 14:16 20 ML Departure Impression Primary Impression: Abscess of buttock, left Additional Impression: Shingles Disposition: 01 HOME, SELF-CARE Condition: Stable Departure-Patient Inst. Decision time for Depature: 14:14 Referrals: NO,LOCAL PHYSICIAN (PCP/Family) Primary Care Physician Patient Instructions: Abscess Incision and Drainage Add. Discharge Instructions: 1. Warm compresses to this area, showering and bathing is fine. Expect some drainage over the next few days, this is a good thing. Continue the Bactrim antibiotics. This is a great choice for abscesses. You should notice improvement within the next 48 hours after this drainage. Pain medication as needed. Scripts Hydrocodone/Acetaminophen ([place] 5-325 Tablet) 1 Each Tablet 1 EACH PO Q4H PRN for PAIN-MODERATE TO SEVERE, #20 TAB Prov: ALIYA ELY APRN 01/10/18 ALIYA ELY APRN Jan 10, 2018 14:16
[2018-01-10] MEDS ORDERED: ACYC800T (14:33)
[2018-01-10] MEDS ORDERED: SULF-222 (14:33)
[2018-01-10 14:49] VITALS: BP 109/72
[2018-01-11] MEDS ORDERED: MUPI22OI2 TP (09:19)
[2018-01-15] MEDS ORDERED: CLIN300C11 PO (08:33)
== END 2018-01-10 14:49 | disposition home or self-care (01) ==
LOC: EDUNIT# 13:59 → ER 14:01
DX: L02.31 Cutaneous abscess of buttock (principal); B02.9 Zoster without complications; G43.909 Migraine, unspecified, not intractable, without status migrainosus; K21.9 Gastro-esophageal reflux disease without esophagitis; F41.9 Anxiety disorder, unspecified; Z87.19 Personal history of other diseases of the digestive system; Z86.19 Personal history of other infectious and parasitic diseases; Z87.448 Personal history of other diseases of urinary system; Z90.49 Acquired absence of other specified parts of digestive tract; Z87.59 Personal history of other complications of pregnancy, childbirth and the puerperium
CPT/HCPCS: 10060; 87070; 87077; 87186; 87205

== ENCOUNTER 2018-01-11 08:19 | Emergency (ER) | payer MEDICAID ==
[~2018-01-11] VITALS: Ht 149.9 cm; Wt 46.7 kg
[~2018-01-11 08:19] MED LIST changes: +ACYC800T; +HYDR-757 PO; +SULF-222
--- OUTSIDE RECORDS SUMMARY | 2018-01-11 08:26 | XMS REPORT | Continuity of Care Document ---
Author Author [facility] Address Unknown Phone Unavailable Allergies Active Description Code Type Severity Reaction Onset Reported/Identified Relationship to Patient Clinical Status Yes No Known Drug Allergies [id number] Drug Allergy Unknown N/A 01/10/2017 Medications There is no data. Problems Date Dx Coded Attending Type Code Diagnosis Diagnosed By 03/02/2010 MAGY JACKSON DDS V72.42 TEST POSITIVE RESULT 03/02/2010 MAE CANALES DO V72.42 TEST POSITIVE RESULT 10/19/2010 Ot 648.11 THYROID DYSFUNC-DELIVER 10/19/2010 Ot 654.21 PREV DELIVRY W/ OR W/O MENT ANT 10/19/2010 Ot V06.1 DIPHTHERIA- TETANUS-PERTUSSIS, COMBINED [ 10/19/2010 Ot V27.0 DELIVER- SINGLE LIVEBORN 02/11/2013 AUGUSTA AYON DO Ot 530.81 ESOPHAGEAL REFLUX 02/11/2013 AUGUSTA AYON DO Ot 564.00 UNSPEC CONSTIPATION 02/11/2013 AUGUSTA AYON DO Ot 599.0 URIN TRACT INFECTION NOS 02/11/2013 AUGUSTA AYON DO Ot 787.02 NAUSEA ALONE 05/27/2013 JANNETH LI Ot 473.9 CHRONIC SINUSITIS NOS 05/27/2013 JANNETH LI Ot 784.0 HEADACHE 08/19/2013 KASH GUADALUPE DO Ot 535.50 UNSP GASTRITIS GASTRODUODENITIS W/O ME 08/19/2013 KASH GUADALUPE DO Ot 553.3 DIAPHRAGMATIC HERNIA 11/09/2013 JONAS SMITH MD Ot 521.00 UNSPEC DENTAL CARIES 11/09/2013 JONAS SMITH MD Ot 525.9 DENTAL DISORDER NOS 11/09/2013 JONAS SMITH MD Ot 787.02 NAUSEA ALONE 01/28/2014 AUGUSTA AYON DO Ot 473.9 CHRONIC SINUSITIS NOS 01/28/2014 GABO AUGUSTA Baker Ot 525.9 DENTAL DISORDER NOS 06/20/2014 MAE CANALES DO 599.0 URINARY TRACT INFECTION 07/23/2014 TAMMY FRANCO MD Ot 540.9 ACUTE APPENDICITIS NOS 07/23/2014 TAMMY FRANCO MD Ot 614.6 FEM PELVIC PERITON ADH-POST-OP/INF 07/23/2014 TAMMY FRANCO MD Ot 617.9 ENDOMETRIOSIS NOS 07/23/2014 TAMMY FRANCO MD Ot 620.2 OVARIAN CYST NEC/NOS 07/23/2014 TAMMY FRANCO MD Ot 625.5 PELVIC CONGESTION SYND 08/11/2014 BERNARD MCNEILL, TEO Oviedo Ot 789.06 08/18/2014 KASH GUADALUPE DO Ot 575.11 CHRONIC CHOLECYSTITIS 08/18/2014 KASH GUADALUPE DO Ot 575.8 08/26/2014 BERNARD MNCEILL, TEO Oviedo Ot 789.06 08/31/2014 KASH GUADALUPE DO Ot 787.02 08/31/2014 KASH GUADALUPE DO Ot 789.06 08/31/2014 KASH GUADALUPE DO Ot 793.3 08/31/2014 KASH GUADALUPE DO Ot 575.8 08/31/2014 KASH GUADALUPE DO Ot V72.63 08/31/2014 KASH GUADALUPE DO Ot V74.8 09/02/2014 BERNARD MCNEILL, TEO [place]viedo Ot 789.06 09/10/2014 BERNARD MCNEILL, TEO Oviedo Ot 789.06 09/14/2014 TEO WAGNER MD Ot 789.06 09/15/2014 TEO WAGNER MD Ot 789.06 09/15/2014 TEO WAGNER MD Ot 789.06 05/21/2016 AUGUSTA AYON DO Ot K52.9 NONINFECTIVE GASTROENTERITIS AND COLITIS 05/21/2016 AUGUSTA AYON DO Ot R11.2 NAUSEA WITH VOMITING, UNSPECIFIED 05/23/2016 AUGUSTA AYON DO Ot K52.9 NONINFECTIVE GASTROENTERITIS AND COLITIS 05/23/2016 AUGUSTA AYON DO Ot R11.2 NAUSEA WITH VOMITING, UNSPECIFIED 05/24/2016 AUGUTSA AYON DO Ot K52.9 NONINFECTIVE GASTROENTERITIS AND COLITIS 05/24/2016 AUGUSTA AYON DO Ot R11.2 NAUSEA WITH VOMITING, UNSPECIFIED 08/16/2016 ALIYA ELY APRN Ot M54.5 LOW BACK PAIN 08/16/2016 ALIYA ELY APRN Ot N83.201 UNSPECIFIED OVARIAN CYST, RIGHT SIDE 08/16/2016 ALIYA ELY MECHANICAL LEAD Ot N83.202 UNSPECIFIED OVARIAN CYST, LEFT SIDE 08/18/2016 SHELLY ESTHELA BONILLA Ot M54.5 LOW BACK PAIN 08/18/2016 SHELLY DOESTHELA Ot R10.31 RIGHT LOWER QUADRANT PAIN 08/18/2016 SHELLY DOESTHELA Ot R10.32 LEFT LOWER QUADRANT PAIN 08/18/2016 ALIYA ELY APRN Ot M54.5 LOW BACK PAIN 08/18/2016 ALIYA ELY MECHANICAL LEAD Ot N83.201 UNSPECIFIED OVARIAN CYST, RIGHT SIDE 08/18/2016 ALIYA ELY MECHANICAL LEAD Ot N83.202 UNSPECIFIED OVARIAN CYST, LEFT SIDE 12/01/2016 KASH GUADALUPE DO Ot K21.9 GASTRO-ESOPHAGEAL REFLUX DISEASE WITHOUT 12/01/2016 GUADALUPEKASH HANNAH DO Ot K92.1 MELENA 12/01/2016 KASH GUADALUPE DO Ot Z01.818 ENCOUNTER FOR OTHER PREPROCEDURAL EXAMIN 12/01/2016 KASH GUAADLUPE DO Ot K21.9 GASTRO-ESOPHAGEAL REFLUX DISEASE WITHOUT 12/01/2016 KASH GUADALUPE DO Ot K92.1 MELENA 12/01/2016 KASH GUADALUPE DO Ot Z01.818 ENCOUNTER FOR OTHER PREPROCEDURAL EXAMIN 12/05/2016 GUADALUPEKASH HANNAH DO Ot V72.84 EXAM PRE-OPERATIVE NOS 12/05/2016 BERNARD MCNEILL, TEO [place] Ot 787.01 NAUSEA WITH VOMITING 12/05/2016 BERNARD MCNEILL, TEO [place] Ot 789.01 ABDOMINAL PAIN, RIGHT UPPER QUADRANT 12/05/2016 BERNARD MCNEILL, TEO [place] Ot 789.06 ABDOMINAL PAIN, EPIGASTRIC 12/05/2016 BERNARD MCNEILL, TEO [place] Ot 787.01 NAUSEA WITH VOMITING 12/05/2016 BERNARD MCNEILL, TEO [place] Ot 789.01 ABDOMINAL PAIN, RIGHT UPPER QUADRANT 12/05/2016 BERNARD MCNEILL, TEO [place] Ot 789.06 ABDOMINAL PAIN, EPIGASTRIC 12/05/2016 JOSH MCNEILL, GELY Boone Ot 787.02 NAUSEA ALONE 12/05/2016 GELY MORENO MD Ot 789.06 ABDOMINAL PAIN, EPIGASTRIC 12/05/2016 TAMMY FRANCO MD Ot 285.9 ANEMIA NOS 12/05/2016 TAMMY FRANCO MD Ot 625.9 FEM GENITAL SYMPTOMS NOS 12/05/2016 TAMMY FRANCO MD Ot V72.63 PRE-PROCEDURAL LABORATORY EXAMINATION 12/05/2016 TAMMY FRANCO MD Ot V74.8 SCREEN-BACTERIAL DIS NEC 12/05/2016 BERNARD MCNEILL, TEO [place] Ot 789.06 ABDOMINAL PAIN, EPIGASTRIC 12/05/2016 KASH GUADALUPE DO Ot 787.02 NAUSEA ALONE 12/05/2016 KASH GUADALUPE DO Ot 789.06 ABDOMINAL PAIN, EPIGASTRIC 12/05/2016 KASH GUADALUPE DO Ot 793.3 NOSP (ABN) FINDINGS ON RADIOLOGICAL OT 12/05/2016 KASH GUADALUPE DO Ot 575.8 DIS OF GALLBLADDER NEC 12/05/2016 KASH GUADALUPE DO Ot V72.63 PRE-PROCEDURAL LABORATORY EXAMINATION 12/05/2016 KASH GUADALUPE DO Ot V74.8 SCREEN-BACTERIAL DIS NEC 12/05/2016 KASH GUADALUPE DO Ot K21.9 GASTRO-ESOPHAGEAL REFLUX DISEASE WITHOUT 12/05/2016 KEISHA GUADALUPE DOTT D Ot K31.7 POLYP OF STOMACH AND DUODENUM 12/05/2016 KASH GUADALUPE DO Ot K44.9 DIAPHRAGMATIC HERNIA WITHOUT OBSTRUCTION 12/05/2016 KASH GUADALUPE DO D Ot K92.1 MELENA 12/06/2016 GUADALUPEBRIELLE BONILLA KASH D Ot K21.9 GASTRO-ESOPHAGEAL REFLUX DISEASE WITHOUT 12/06/2016 ANAYELI BONILLA KASH D Ot K31.7 POLYP OF STOMACH AND DUODENUM 12/06/2016 KASH GUADALUPE DO D Ot K44.9 DIAPHRAGMATIC HERNIA WITHOUT OBSTRUCTION 12/06/2016 KEISHA GUADALUPE DOTT D Ot K92.1 MELENA 12/11/2016 KASH GUADALUPE DO D Ot K21.9 GASTRO-ESOPHAGEAL REFLUX DISEASE WITHOUT 12/11/2016 KASH GUADALUPE DO Ot K31.7 POLYP OF STOMACH AND DUODENUM 12/11/2016 KASH GUADALUPE DO Ot K44.9 DIAPHRAGMATIC HERNIA WITHOUT OBSTRUCTION 12/11/2016 KASH GUADALUPE DO Ot K92.1 MELENA 01/10/2017 KASH GUADALUPE DO Ot V72.84 EXAM PRE-OPERATIVE NOS 01/10/2017 BERNARD MCNEILL, TEO [place] Ot 787.01 NAUSEA WITH VOMITING 01/10/2017 BERNARD MCNEILL, TEO [place] Ot 789.01 ABDOMINAL PAIN, RIGHT UPPER QUADRANT 01/10/2017 BERNARD MCNEILL, TEO [place] Ot 789.06 ABDOMINAL PAIN, EPIGASTRIC 01/10/2017 BERNARD MCNEILL, TEO [place] Ot 787.01 NAUSEA WITH VOMITING 01/10/2017 BERNARD MCNEILL, TEO [place] Ot 789.01 ABDOMINAL PAIN, RIGHT UPPER QUADRANT 01/10/2017 BERNARD MCNEILL, TEO [place] Ot 789.06 ABDOMINAL PAIN, EPIGASTRIC 01/10/2017 GELY MORENO MD Ot 787.02 NAUSEA ALONE 01/10/2017 GELY MORENO MD Ot 789.06 ABDOMINAL PAIN, EPIGASTRIC 01/10/2017 TAMMY FRANCO MD Ot 285.9 ANEMIA NOS 01/10/2017 TAMMY FRANCO MD Ot 625.9 FEM GENITAL SYMPTOMS NOS 01/10/2017 TAMMY FRANCO MD, Ot V72.63 PRE-PROCEDURAL LABORATORY EXAMINATION 01/10/2017 TAMMY FRANCO MD, Ot V74.8 SCREEN-BACTERIAL DIS NEC 01/10/2017 BERNARD MCNEILL, TEO Oviedo Ot 789.06 ABDOMINAL PAIN, EPIGASTRIC 01/10/2017 KASH GUADALUPE DO Ot 787.02 NAUSEA ALONE 01/10/2017 KASH GUADALUPE DO Ot 789.06 ABDOMINAL PAIN, EPIGASTRIC 01/10/2017 KASH GUADALUPE DO Ot 793.3 NOSP (ABN) FINDINGS ON RADIOLOGICAL OT 01/10/2017 KASH GUADALUPE DO Ot 575.8 DIS OF GALLBLADDER NEC 01/10/2017 KASH GUADALUPE DO Ot V72.63 PRE-PROCEDURAL LABORATORY EXAMINATION 01/10/2017 KASH GUADALUPE DO Ot V74.8 SCREEN-BACTERIAL DIS NEC 01/10/2017 TAMMY FRANCO MD Ot R10.2 PELVIC AND PERINEAL PAIN 01/10/2017 TAMMY FRANCO MD, Ot Z01.812 ENCOUNTER FOR PREPROCEDURAL LABORATORY E 01/10/2017 TAMMY FRANCO MD, Ot Z11.2 ENCOUNTER FOR SCREENING FOR OTHER BACTER 01/10/2017 TAMMY FRANCO MD, Ot Z87.42 PERSONAL HISTORY OF OTH DISEASES OF THE 01/11/2017 TAMMY FRANCO MD, Ot R10.2 PELVIC AND PERINEAL PAIN 01/11/2017 TAMMY FRANCO MD, Ot Z01.812 ENCOUNTER FOR PREPROCEDURAL LABORATORY E 01/11/2017 TAMMY FRANCO MD, Ot Z11.2 ENCOUNTER FOR SCREENING FOR OTHER BACTER 01/11/2017 TAMMY FRANCO MD, Ot Z87.42 PERSONAL HISTORY OF OTH DISEASES OF THE 01/13/2017 TAMMY FRANCO MD, Ot N70.11 CHRONIC SALPINGITIS 01/13/2017 TAMMY FRANCO MD, Ot N73.6 FEMALE PELVIC PERITONEAL ADHESIONS (POST 01/13/2017 TAMMY FRANCO MD, Ot N80.2 ENDOMETRIOSIS OF FALLOPIAN TUBE 01/13/2017 TAMMY FRANCO MD, Ot N83.12 CORPUS LUTEUM CYST OF LEFT OVARY 01/13/2017 TAMMY FRANCO MD, Ot N92.0 EXCESSIVE AND FREQUENT MENSTRUATION WITH 01/13/2017 TAMMY FRANCO MD, Ot N93.8 OTHER SPECIFIED ABNORMAL UTERINE AND VAG 01/16/2017 TAMMY FRANCO MD, Ot R10.2 PELVIC AND PERINEAL PAIN 01/16/2017 TAMMY FRANCO MD, Ot Z01.812 ENCOUNTER FOR PREPROCEDURAL LABORATORY E 01/16/2017 TAMMY FRANCO MD, Ot Z11.2 ENCOUNTER FOR SCREENING FOR OTHER BACTER 01/16/2017 TAMMY FRANCO MD, Ot Z87.42 PERSONAL HISTORY OF OTH DISEASES OF THE 01/18/2017 TAMMY FRANCO MD, Ot N70.11 CHRONIC SALPINGITIS 01/18/2017 TAMMY FRANCO MD, Ot N73.6 FEMALE PELVIC PERITONEAL ADHESIONS (POST 01/18/2017 TAMMY FRANCO MD, Ot N80.2 ENDOMETRIOSIS OF FALLOPIAN TUBE 01/18/2017 TAMMY FRANCO MD Ot N83.12 CORPUS LUTEUM CYST OF LEFT OVARY 01/18/2017 TAMMY FRANCO MD Ot N92.0 EXCESSIVE AND FREQUENT MENSTRUATION WITH 01/18/2017 TAMMY FRANCO MD Ot N93.8 OTHER SPECIFIED ABNORMAL UTERINE AND VAG 01/26/2017 TAMMY FRANCO MD Ot N70.11 CHRONIC SALPINGITIS 01/26/2017 TAMMY FRANCO MD Ot N73.6 FEMALE PELVIC PERITONEAL ADHESIONS (POST 01/26/2017 TAMMY FRANCO MD, Ot N80.2 ENDOMETRIOSIS OF FALLOPIAN TUBE 01/26/2017 TAMMY FRANCO MD Ot N83.12 CORPUS LUTEUM CYST OF LEFT OVARY 01/26/2017 TAMMY FRANCO MD Ot N92.0 EXCESSIVE AND FREQUENT MENSTRUATION WITH 01/26/2017 TAMMY FRANCO MD Ot N93.8 OTHER SPECIFIED ABNORMAL UTERINE AND VAG 03/04/2017 RANDOLPH LARA MD Ot K21.9 GASTRO-ESOPHAGEAL REFLUX DISEASE WITHOUT 03/04/2017 RANDOLPH LARA MD Ot R10.13 EPIGASTRIC PAIN 03/04/2017 RANDOLPH LARA MD Ot R10.31 RIGHT LOWER QUADRANT PAIN 03/04/2017 RANDOLPH LARA MD Ot Z90.49 ACQUIRED ABSENCE OF OTHER SPECIFIED PART 05/21/2017 KASH GUADALUPE DO Ot V72.84 EXAM PRE-OPERATIVE NOS 05/21/2017 BERNARD MCNEILL, TEO Oviedo Ot 787.01 NAUSEA WITH VOMITING 05/21/2017 BERNARD MCNEILL, TEO Oviedo Ot 789.01 ABDOMINAL PAIN, RIGHT UPPER QUADRANT 05/21/2017 TEO WAGNER MD Ot 789.06 ABDOMINAL PAIN, EPIGASTRIC 05/21/2017 TEO WAGNER MD Ot 787.01 NAUSEA WITH VOMITING 05/21/2017 TEO WAGNER MD Ot 789.01 ABDOMINAL PAIN, RIGHT UPPER QUADRANT 05/21/2017 TEO WAGNER MD Ot 789.06 ABDOMINAL PAIN, EPIGASTRIC 05/21/2017 JOSH MCNEILL, GELY Boone Ot 787.02 NAUSEA ALONE 05/21/2017 GELY MORENO MD Ot 789.06 ABDOMINAL PAIN, EPIGASTRIC 05/21/2017 TAMMY FRANCO MD Ot 285.9 ANEMIA NOS 05/21/2017 TAMMY FRANCO MD Ot 625.9 FEM GENITAL SYMPTOMS NOS 05/21/2017 TAMMY FRANCO MD, Ot V72.63 PRE-PROCEDURAL LABORATORY EXAMINATION 05/21/2017 TAMMY FRANCO MD, Ot V74.8 SCREEN-BACTERIAL DIS NEC 05/21/2017 BERNARD MCNEILL, TEO Ov[place]o Ot 789.06 ABDOMINAL PAIN, EPIGASTRIC 05/21/2017 KASH GUADALUPE DO Ot 787.02 NAUSEA ALONE 05/21/2017 KASH GUADALUPE DO Ot 789.06 ABDOMINAL PAIN, EPIGASTRIC 05/21/2017 KASH GUADALUPE DO Ot 793.3 NOSP (ABN) FINDINGS ON RADIOLOGICAL OT 05/21/2017 KASH GUADALUPE DO Ot 575.8 DIS OF GALLBLADDER NEC 05/21/2017 KASH GUADALUPE DO Ot V72.63 PRE-PROCEDURAL LABORATORY EXAMINATION 05/21/2017 KASH GUADALUPE DO Ot V74.8 SCREEN-BACTERIAL DIS NEC 06/14/2017 TAMMY FRANCO MD, Ot Z12.31 ENCNTR SCREEN MAMMOGRAM FOR MALIGNANT NE 07/04/2017 TAMMY FRANCO MD, Ot N70.11 CHRONIC SALPINGITIS 07/04/2017 TAMMY FRANCO MD, Ot N73.6 FEMALE PELVIC PERITONEAL ADHESIONS (POST 07/04/2017 TAMMY FRANCO MD, Ot N80.2 ENDOMETRIOSIS OF FALLOPIAN TUBE 07/04/2017 TAMMY FRANCO MD, Ot N83.12 CORPUS LUTEUM CYST OF LEFT OVARY 07/04/2017 TAMMY FRANCO MD, Ot N92.0 EXCESSIVE AND FREQUENT MENSTRUATION WITH 07/04/2017 TAMMY FRANCO MD, Ot N93.8 OTHER SPECIFIED ABNORMAL UTERINE AND VAG Procedures Code Description Performed By Performed On 72.9 INSTRUMENT DELIVERY NOS 10/16/2010 74.1 LOW CERVICAL 10/16/2010 99.77 APPL/ADMIN OF AN ADHESION BARRIER SUBSTA 10/16/2010 24003 UA W/ CULTURE IF INDICATED 06/20/2014 Results Test Result Range Complete blood count (CBC) with automated white blood cell (WBC) differential - 05/21/16 21:24 Blood leukocytes automated count (number/volume) 11.1 10*3/uL 4.3-11.0 Blood erythrocytes automated count (number/volume) 4.71 10*6/uL 4.35-5.85 Venous blood hemoglobin measurement (mass/volume) 14.0 g/dL 11.5-16.0 Blood hematocrit (volume fraction) 42 % 35-52 Automated erythrocyte mean corpuscular volume 88 [foz_us] 80-99 Automated erythrocyte mean corpuscular hemoglobin (mass per erythrocyte) 30 pg 25-34 Automated erythrocyte mean corpuscular hemoglobin concentration measurement ( mass/volume) 34 g/dL 32-36 Automated erythrocyte distribution width ratio 13.0 % 10.0-14.5 Automated blood platelet count (count/volume) 239 10*3/uL 130-400 Automated blood platelet mean volume measurement 11.2 [foz_us] 7.4-10.4 Automated blood neutrophils/100 leukocytes 89 % 42-75 Automated blood lymphocytes/100 leukocytes 8 % 12-44 Blood monocytes/100 leukocytes 3 % 0-12 Automated blood eosinophils/100 leukocytes 0 % 0-10 Automated blood basophils/100 leukocytes 0 % 0-10 Blood neutrophils automated count (number/volume) 9.9 10*3 1.8-7.8 Blood lymphocytes automated count (number/volume) 0.8 10*3 1.0-4.0 Blood monocytes automated count (number/volume) 0.3 10*3 0.0-1.0 Automated eosinophil count 0.0 10*3/uL 0.0-0.3 Automated blood basophil count (count/volume) 0.0 10*3/uL 0.0-0.1 Complete urinalysis with reflex to culture - 05/21/16 21:24 Urine color determination YELLOW NRG Urine clarity determination SLIGHTLY CLOUDY NRG Urine pH measurement by test strip 5 5-9 Specific gravity of urine by test strip 1.025 1.016- 1.022 Urine protein assay by test strip, semi-quantitative NEGATIVE NEGATIVE Urine glucose detection by automated test strip NEGATIVE NEGATIVE Erythrocytes detection in urine sediment by light microscopy NEGATIVE NEGATIVE Urine ketones detection by automated test strip 4+ NEGATIVE Urine nitrite detection by test strip NEGATIVE NEGATIVE Urine total bilirubin detection by test strip NEGATIVE NEGATIVE Urine urobilinogen measurement by automated test strip (mass/volume) NORMAL NORMAL Urine leukocyte esterase detection by dipstick 1+ NEGATIVE Automated urine sediment erythrocyte count by microscopy (number/high power field) NONE NRG Automated urine sediment leukocyte count by microscopy (number/high power field ) [HPF] NRG Bacteria detection in urine sediment by light microscopy FEW NRG Squamous epithelial cells detection in urine sediment by light microscopy 10-25 NRG Crystals detection in urine sediment by light microscopy NONE NRG Casts detection in urine sediment by light microscopy NONE NRG Mucus detection in urine sediment by light microscopy NEGATIVE NRG Complete urinalysis with reflex to culture NO NR Comprehensive metabolic panel - 05/21/16 21:24 Serum or plasma sodium measurement (moles/volume) 139 mmol/L 135-145 Serum or plasma potassium measurement (moles/volume) 3.8 mmol/L 3.6-5.0 Serum or plasma chloride measurement (moles/volume) 108 mmol/L 98-107 Carbon dioxide 19 mmol/L 21-32 Serum or plasma anion gap determination (moles/volume) 12 mmol/L 5-14 Serum or plasma urea nitrogen measurement (mass/volume) 14 mg/dL 7-18 Serum or plasma creatinine measurement (mass/volume) 0.69 mg/dL 0.60-1.30 Serum or plasma urea nitrogen/creatinine mass ratio 20 NRG Serum or plasma creatinine measurement with calculation of estimated glomerular filtration rate > NRG Serum or plasma glucose measurement (mass/volume) 82 mg/dL 70-105 Serum or plasma calcium measurement (mass/volume) 9.4 mg/dL 8.5-10.1 Serum or plasma total bilirubin measurement (mass/volume) 2.5 mg/dL 0.1-1.0 Serum or plasma alkaline phosphatase measurement (enzymatic activity/volume) 57 U/L 40-136 Serum or plasma aspartate aminotransferase measurement (enzymatic activity/ volume) 25 U/L 5-34 Serum or plasma alanine aminotransferase measurement (enzymatic activity/volume ) 32 U/L 0-55 Serum or plasma protein measurement (mass/volume) 6.8 g/dL 6.4-8.2 Serum or plasma albumin measurement (mass/volume) 4.4 g/dL 3.2-4.5 Serum or plasma amylase measurement (enzymatic activity/volume) - 05/21/16 21: 24 Serum or plasma amylase measurement (enzymatic activity/volume) 70 U /L 25-125 Lipase - 05/21/16 21:24 Lipase 6 U/L 8-78 Blood manual differential performed detection - 05/21/16 21:24 Blood monocytes/100 leukocytes 4 % NRG Manual blood segmented neutrophils/100 leukocytes 75 % NRG Blood band neutrophils/100 leukocytes 4 % NRG Manual blood lymphocytes/100 leukocytes 15 % NRG Manual eosinophils/100 leukocytes in nose 0 % NRG Manual blood basophils/100 leukocytes 2 % NRG Blood erythrocyte morphology finding identification NORMAL NRG Complete blood count (CBC) with automated white blood cell (WBC) differential - 08/16/16 20:50 Blood leukocytes automated count (number/volume) 12.3 10*3/uL 4.3-11.0 Blood erythrocytes automated count (number/volume) 4.66 10*6/uL 4.35-5.85 Venous blood hemoglobin measurement (mass/volume) 13.9 g/dL 11.5-16.0 Blood hematocrit (volume fraction) 40 % 35-52 Automated erythrocyte mean corpuscular volume 86 [foz_us] 80-99 Automated erythrocyte mean corpuscular hemoglobin (mass per erythrocyte) 30 pg 25-34 Automated erythrocyte mean corpuscular hemoglobin concentration measurement ( mass/volume) 35 g/dL 32-36 Automated erythrocyte distribution width ratio 13.2 % 10.0-14.5 Automated blood platelet count (count/volume) 269 10*3/uL 130-400 Automated blood platelet mean volume measurement 11.1 [foz_us] 7.4-10.4 Automated blood neutrophils/100 leukocytes 64 % 42-75 Automated blood lymphocytes/100 leukocytes 25 % 12-44 Blood monocytes/100 leukocytes 10 % 0-12 Automated blood eosinophils/100 leukocytes 1 % 0-10 Automated blood basophils/100 leukocytes 0 % 0-10 Blood neutrophils automated count (number/volume) 7.9 10*3 1.8-7.8 Blood lymphocytes automated count (number/volume) 3.1 10*3 1.0-4.0 Blood monocytes automated count (number/volume) 1.2 10*3 0.0-1.0 Automated eosinophil count 0.1 10*3/uL 0.0-0.3 Automated blood basophil count (count/volume) 0.0 10*3/uL 0.0-0.1 Comprehensive metabolic panel - 08/16/16 20:50 Serum or plasma sodium measurement (moles/volume) 137 mmol/L 135-145 Serum or plasma potassium measurement (moles/volume) 3.8 mmol/L 3.6-5.0 Serum or plasma chloride measurement (moles/volume) 107 mmol/L 98-107 Carbon dioxide 19 mmol/L 21-32 Serum or plasma anion gap determination (moles/volume) 11 mmol/L 5-14 Serum or plasma urea nitrogen measurement (mass/volume) 12 mg/dL 7-18 Serum or plasma creatinine measurement (mass/volume) 0.74 mg/dL 0.60-1.30 Serum or plasma urea nitrogen/creatinine mass ratio 16 NRG Serum or plasma creatinine measurement with calculation of estimated glomerular filtration rate > NRG Serum or plasma glucose measurement (mass/volume) 96 mg/dL 70-105 Serum or plasma calcium measurement (mass/volume) 9.8 mg/dL 8.5-10.1 Serum or plasma total bilirubin measurement (mass/volume) 0.7 mg/dL 0.1-1.0 Serum or plasma alkaline phosphatase measurement (enzymatic activity/volume) 55 U/L 40-136 Serum or plasma aspartate aminotransferase measurement (enzymatic activity/ volume) 13 U/L 5-34 Serum or plasma alanine aminotransferase measurement (enzymatic activity/volume ) 14 U/L 0-55 Serum or plasma protein measurement (mass/volume) 7.1 g/dL 6.4-8.2 Serum or plasma albumin measurement (mass/volume) 4.5 g/dL 3.2-4.5 Lipase - 08/16/16 20:50 Lipase 20 U/L 8-78 Serum or plasma C reactive protein measurement (mass/volume) - 08/16/16 20:50 Serum or plasma C reactive protein measurement (mass/volume) 0.04 mg /dL 0.00-0.50 Complete urinalysis with reflex to culture - 08/16/16 20:54 Urine color determination YELLOW NRG Urine clarity determination SLIGHTLY CLOUDY NRG Urine pH measurement by test strip 6 5-9 Specific gravity of urine by test strip 1.025 1.016- 1.022 Urine protein assay by test strip, semi-quantitative NEGATIVE NEGATIVE Urine glucose detection by automated test strip NEGATIVE NEGATIVE Erythrocytes detection in urine sediment by light microscopy NEGATIVE NEGATIVE Urine ketones detection by automated test strip NEGATIVE NEGATIVE Urine nitrite detection by test strip NEGATIVE NEGATIVE Urine total bilirubin detection by test strip NEGATIVE NEGATIVE Urine urobilinogen measurement by automated test strip (mass/volume) NORMAL NORMAL Urine leukocyte esterase detection by dipstick 1+ NEGATIVE Automated urine sediment erythrocyte count by microscopy (number/high power field) NONE NRG Automated urine sediment leukocyte count by microscopy (number/high power field ) [HPF] NRG Bacteria detection in urine sediment by light microscopy MODERATE NRG Squamous epithelial cells detection in urine sediment by light microscopy 10-25 NRG Crystals detection in urine sediment by light microscopy NONE NRG Casts detection in urine sediment by light microscopy NONE NRG Mucus detection in urine sediment by light microscopy SMALL NRG Complete urinalysis with reflex to culture NO NRG Bacteria identification in genital specimen by aerobe culture - 08/16/16 22:54 Bacteria identification in genital specimen by aerobe culture NORMAL NRG Microscopic examination by wet preparation - 08/16/16 22:54 WET PREP RESULTS AT 2304 BY PK NRG Neisseria gonorrhoeae DNA detection by probe and signal amplification method - 08/16/16 22:54 Gonorrhea amp DNA-urine Negative Negative Chlamydia trachomatis DNA detection by probe and signal amplification method - 08/16/16 22:54 Chlamydia trachomatis DNA detection by probe and target amplification method Negative Negative Complete blood count (CBC) with automated white blood cell (WBC) differential - 08/17/16 22:23 Blood leukocytes automated count (number/volume) 11.3 10*3/uL 4.3-11.0 Blood erythrocytes automated count (number/volume) 4.37 10*6/uL 4.35-5.85 Venous blood hemoglobin measurement (mass/volume) 12.9 g/dL 11.5-16.0 Blood hematocrit (volume fraction) 39 % 35-52 Automated erythrocyte mean corpuscular volume 89 [foz_us] 80-99 Automated erythrocyte mean corpuscular hemoglobin (mass per erythrocyte) 30 pg 25-34 Automated erythrocyte mean corpuscular hemoglobin concentration measurement ( mass/volume) 33 g/dL 32-36 Automated erythrocyte distribution width ratio 13.3 % 10.0-14.5 Automated blood platelet count (count/volume) 253 10*3/uL 130-400 Automated blood platelet mean volume measurement 10.9 [foz_us] 7.4-10.4 Automated blood neutrophils/100 leukocytes 66 % 42-75 Automated blood lymphocytes/100 leukocytes 24 % 12-44 Blood monocytes/100 leukocytes 9 % 0-12 Automated blood eosinophils/100 leukocytes 2 % 0-10 Automated blood basophils/100 leukocytes 0 % 0-10 Blood neutrophils automated count (number/volume) 7.4 10*3 1.8-7.8 Blood lymphocytes automated count (number/volume) 2.7 10*3 1.0-4.0 Blood monocytes automated count (number/volume) 1.0 10*3 0.0-1.0 Automated eosinophil count 0.2 10*3/uL 0.0-0.3 Automated blood basophil count (count/volume) 0.0 10*3/uL 0.0-0.1 Complete urinalysis with reflex to culture - 08/17/16 22:23 Urine color determination YELLOW NRG Urine clarity determination CLEAR NRG Urine pH measurement by test strip 7 5-9 Specific gravity of urine by test strip 1.010 1.016- 1.022 Urine protein assay by test strip, semi-quantitative NEGATIVE NEGATIVE Urine glucose detection by automated test strip NEGATIVE NEGATIVE Erythrocytes detection in urine sediment by light microscopy NEGATIVE NEGATIVE Urine ketones detection by automated test strip NEGATIVE NEGATIVE Urine nitrite detection by test strip NEGATIVE NEGATIVE Urine total bilirubin detection by test strip NEGATIVE NEGATIVE Urine urobilinogen measurement by automated test strip (mass/volume) NORMAL NORMAL Urine leukocyte esterase detection by dipstick NEGATIVE NEGATIVE Automated urine sediment erythrocyte count by microscopy (number/high power field) NONE NRG Automated urine sediment leukocyte count by microscopy (number/high power field ) RARE NRG Bacteria detection in urine sediment by light microscopy TRACE NRG Squamous epithelial cells detection in urine sediment by light microscopy 5-10 NRG Crystals detection in urine sediment by light microscopy NONE NRG Casts detection in urine sediment by light microscopy NONE NRG Mucus detection in urine sediment by light microscopy NEGATIVE NRG Complete urinalysis with reflex to culture NO NRG Comprehensive metabolic panel - 08/17/16 22:23 Serum or plasma sodium measurement (moles/volume) 137 mmol/L 135-145 Serum or plasma potassium measurement (moles/volume) 3.8 mmol/L 3.6-5.0 Serum or plasma chloride measurement (moles/volume) 109 mmol/L 98-107 Carbon dioxide 20 mmol/L 21-32 Serum or plasma anion gap determination (moles/volume) 8 mmol/L 5-14 Serum or plasma urea nitrogen measurement (mass/volume) 9 mg/dL 7-18 Serum or plasma creatinine measurement (mass/volume) 0.74 mg/dL 0.60-1.30 Serum or plasma urea nitrogen/creatinine mass ratio 12 NRG Serum or plasma creatinine measurement with calculation of estimated glomerular filtration rate > NRG Serum or plasma glucose measurement (mass/volume) 92 mg/dL 70-105 Serum or plasma calcium measurement (mass/volume) 9.1 mg/dL 8.5-10.1 Serum or plasma total bilirubin measurement (mass/volume) 0.6 mg/dL 0.1-1.0 Serum or plasma alkaline phosphatase measurement (enzymatic activity/volume) 58 U/L 40-136 Serum or plasma aspartate aminotransferase measurement (enzymatic activity/ volume) 19 U/L 5-34 Serum or plasma alanine aminotransferase measurement (enzymatic activity/volume ) 25 U/L 0-55 Serum or plasma protein measurement (mass/volume) 6.7 g/dL 6.4-8.2 Serum or plasma albumin measurement (mass/volume) 4.4 g/dL 3.2-4.5 Lipase - 08/17/16 22:23 Lipase 25 U/L 8-78 Urine beta human chorionic gonadotropin (hCG) measurement - 12/05/16 09:40 Urine beta human chorionic gonadotropin (hCG) measurement NEGATIVE NEGATIVE Complete blood count (CBC) with automated white blood cell (WBC) differential - 01/10/17 16:00 Blood leukocytes automated count (number/volume) 9.7 10*3/uL 4.3-11.0 Blood erythrocytes automated count (number/volume) 4.13 10*6/uL 4.35-5.85 Venous blood hemoglobin measurement (mass/volume) 12.0 g/dL 11.5-16.0 Blood hematocrit (volume fraction) 37 % 35-52 Automated erythrocyte mean corpuscular volume 89 [foz_us] 80-99 Automated erythrocyte mean corpuscular hemoglobin (mass per erythrocyte) 29 pg 25-34 Automated erythrocyte mean corpuscular hemoglobin concentration measurement ( mass/volume) 33 g/dL 32-36 Automated erythrocyte distribution width ratio 12.9 % 10.0-14.5 Automated blood platelet count (count/volume) 327 10*3/uL 130-400 Automated blood platelet mean volume measurement 10.7 [foz_us] 7.4-10.4 Automated blood neutrophils/100 leukocytes 54 % 42-75 Automated blood lymphocytes/100 leukocytes 35 % 12-44 Blood monocytes/100 leukocytes 8 % 0-12 Automated blood eosinophils/100 leukocytes 2 % 0-10 Automated blood basophils/100 leukocytes 1 % 0-10 Blood neutrophils automated count (number/volume) 5.3 10*3 1.8-7.8 Blood lymphocytes automated count (number/volume) 3.4 10*3 1.0-4.0 Blood monocytes automated count (number/volume) 0.8 10*3 0.0-1.0 Automated eosinophil count 0.2 10*3/uL 0.0-0.3 Automated blood basophil count (count/volume) 0.1 10*3/uL 0.0-0.1 Methicillin resistant Staphylococcus aureus (MRSA) screening culture - 16:00 Methicillin resistant Staphylococcus aureus (MRSA) screening culture NEG NRG Urine beta human chorionic gonadotropin (hCG) measurement - 01/12/17 12:25 Urine beta human chorionic gonadotropin (hCG) measurement NEGATIVE NEGATIVE Complete blood count (CBC) with automated white blood cell (WBC) differential - 03/04/17 05:03 Blood leukocytes automated count (number/volume) 14.1 10*3/uL 4.3-11.0 Blood erythrocytes automated count (number/volume) 4.41 10*6/uL 4.35-5.85 Venous blood hemoglobin measurement (mass/volume) 12.4 g/dL 11.5-16.0 Blood hematocrit (volume fraction) 38 % 35-52 Automated erythrocyte mean corpuscular volume 86 [foz_us] 80-99 Automated erythrocyte mean corpuscular hemoglobin (mass per erythrocyte) 28 pg 25-34 Automated erythrocyte mean corpuscular hemoglobin concentration measurement ( mass/volume) 33 g/dL 32-36 Automated erythrocyte distribution width ratio 13.7 % 10.0-14.5 Automated blood platelet count (count/volume) 357 10*3/uL 130-400 Automated blood platelet mean volume measurement 10.2 [foz_us] 7.4-10.4 Automated blood neutrophils/100 leukocytes 73 % 42-75 Automated blood lymphocytes/100 leukocytes 17 % 12-44 Blood monocytes/100 leukocytes 8 % 0-12 Automated blood eosinophils/100 leukocytes 2 % 0-10 Automated blood basophils/100 leukocytes 0 % 0-10 Blood neutrophils automated count (number/volume) 10.3 10*3 1.8-7.8 Blood lymphocytes automated count (number/volume) 2.4 10*3 1.0-4.0 Blood monocytes automated count (number/volume) 1.1 10*3 0.0-1.0 Automated eosinophil count 0.2 10*3/uL 0.0-0.3 Automated blood basophil count (count/volume) 0.1 10*3/uL 0.0-0.1 Comprehensive metabolic panel - 03/04/17 05:03 Serum or plasma sodium measurement (moles/volume) 141 mmol/L 135-145 Serum or plasma potassium measurement (moles/volume) 3.9 mmol/L 3.6-5.0 Serum or plasma chloride measurement (moles/volume) 108 mmol/L 98-107 Carbon dioxide 21 mmol/L 21-32 Serum or plasma anion gap determination (moles/volume) 12 mmol/L 5-14 Serum or plasma urea nitrogen measurement (mass/volume) 13 mg/dL 7-18 Serum or plasma creatinine measurement (mass/volume) 0.76 mg/dL 0.60-1.30 Serum or plasma urea nitrogen/creatinine mass ratio 17 NRG Serum or plasma creatinine measurement with calculation of estimated glomerular filtration rate > NRG Serum or plasma glucose measurement (mass/volume) 94 mg/dL 70-105 Serum or plasma calcium measurement (mass/volume) 9.4 mg/dL 8.5-10.1 Serum or plasma total bilirubin measurement (mass/volume) 0.5 mg/dL 0.1-1.0 Serum or plasma alkaline phosphatase measurement (enzymatic activity/volume) 61 U/L 40-136 Serum or plasma aspartate aminotransferase measurement (enzymatic activity/ volume) 18 U/L 5-34 Serum or plasma alanine aminotransferase measurement (enzymatic activity/volume ) 24 U/L 0-55 Serum or plasma protein measurement (mass/volume) 7.2 g/dL 6.4-8.2 Serum or plasma albumin measurement (mass/volume) 3.9 g/dL 3.2-4.5 Serum or plasma amylase measurement (enzymatic activity/volume) - 03/04/17 05: 03 Serum or plasma amylase measurement (enzymatic activity/volume) 61 U /L 25-125 Lipase - 03/04/17 05:03 Lipase 21 U/L 8-78 Blood manual differential performed detection - 03/04/17 05:03 Blood monocytes/100 leukocytes 6 % NRG Manual blood segmented neutrophils/100 leukocytes 70 % NRG Blood band neutrophils/100 leukocytes 0 % NRG Manual blood lymphocytes/100 leukocytes 16 % NRG Manual eosinophils/100 leukocytes in nose 2 % NRG Manual blood basophils/100 leukocytes 0 % NRG Blood lymphocytes variant/100 leukocytes 6 % NRG Blood erythrocyte morphology finding identification NORMAL NRG Blood toxic granules detection by light microscopy 1+ NRG Gram stain microscopy - 01/10/18 14:25 GRAM STAIN RESULT FEW WBC'S, NO BACTERIA OBSERVED NRG Bacteria identification in wound by culture - 01/10/18 14:25 Bacteria identification in wound by culture [id number] NRG QUANTITY OF GROWTH Moderate Growth NRG Encounters ACCT No. Visit Date/Time Discharge Status Pt. Type Provider Facility Loc./Unit Complaint [id number] 06/20/2014 10:54:00 06/20/2014 23:59:59 CLS Outpatient MAE CANALES DO [id number] 05/28/2013 12:58:00 05/28/2013 23:59:59 CLS Outpatient MAGY JACKSON DDS [id number] 01/08/2018 09:00:00 [facility] 08/18/2014 07:45:19 ACT Document Registration [id number] 07/06/2017 13:00:00 07/06/2017 23:59:59 CLS Preadmit TAMMY FRANCO MD Via [facility] CHRONIC PELVIC PAIN; ENDOMETRIOSIS; DUB [id number] 07/02/2017 12:00:00 07/02/2017 23:59:59 CLS Preadmit TAMMY FRANCO MD Via [facility] PREOP CHRONIC PELVIC PAIN ;ENDOMETRIOSIS; DUB [id number] 05/29/2017 08:48:00 05/29/2017 23:59:59 CLS Outpatient TAMMY FRANCO MD [facility] RAD BASELINE [id number] 03/04/2017 04:50:00 03/04/2017 07:05:00 DIS RANDOLPH Mcbride MD [facility] ER VOMITING [id number] 01/12/2017 12:21:00 01/13/2017 17:15:00 DIS Outpatient TAMMY FRANCO MD [facility] ENDOMETRIOSIS, CHRONIC PELVIC PAIN [id number] 01/10/2017 15:36:00 01/10/2017 16:20:00 DIS Outpatient TAMMY FRANCO MD [facility] PREOP CPP,HX ENDOMETRIOSIS [id number] 12/05/2016 09:25:00 12/05/2016 12:00:00 DIS Outpatient KASH GUADALUPE DO [facility] ENDO BLOOD IN STOOL;REFLUX [id number] 12/01/2016 09:30:00 12/01/2016 10:06:00 DIS Outpatient KASH GUADALUPE DO [facility] PREOP BLOOD IN STOOL;REFLUX [id number] 08/17/2016 22:03:00 08/18/2016 00:42:00 DIS Emergency ESTHELA BRAVO DO [facility] ER AB AND BACK PAIN [id number] 08/16/2016 20:37:00 08/16/2016 23:18:00 DIS Emergency ALIYA ELY APRN [facility] ER BACK/STOMACH PAIN [id number] 05/21/2016 20:53:00 05/21/2016 23:45:00 DIS Emergency AUGUSTA AYON DO [facility] ER POSSIBLE DEHYDRATION [id number] 08/18/2014 07:35:00 08/18/2014 15:15:00 DIS Outpatient KASH GUADALUPE DO [facility] BILIARY DYSKINESA [id number] 08/11/2014 10:01:00 08/11/2014 23:59:59 CLS Outpatient KASH GUADALUPE DO [facility] PREOP BILIARY DYSKINESA [id number] 08/07/2014 11:49:00 08/07/2014 23:59:59 CLS Outpatient KASH GUADALUPE DO [facility] CARD EPIGASTRIC ABD PAIN [id number] 08/05/2014 13:20:00 08/05/2014 23:59:59 CLS Outpatient TEO WAGNER MD [facility] RAD ABDOMINAL PELVIC PAIN [id number] 07/22/2014 11:55:00 07/23/2014 08:40:00 DIS Outpatient TAMMY FRANCO MD [facility] CHRONIC PELVIC PAIN [id number] 07/16/2014 14:29:00 07/16/2014 23:59:59 CLS Outpatient TAMMY FRANCO MD [facility] PREOP CHRONIC PELVIC PAIN [id number] 07/10/2014 12:07:00 07/10/2014 23:59:59 CLS Outpatient GELY MORENO MD [facility] RAD NAUSEA EPIGASTRIC PAIN [id number] 01/27/2014 23:23:00 01/28/2014 00:15:00 DIS Emergency AUGUSTA AYON DO [facility] ER DENTAL PAIN [id number] 11/09/2013 07:46:00 11/09/2013 09:33:00 DIS Emergency JONAS SMITH MD [facility] ER DENTAL PAIN [id number] 09/19/2013 11:51:00 09/19/2013 23:59:59 CLS Outpatient TEO WAGNER MD [facility] RAD RUQ PAIN [id number] 08/27/2013 09:39:00 08/27/2013 23:59:59 CLS Outpatient TEO WAGNER MD [facility] RAD RUQ PAIN,VOMITING [id number] 08/19/2013 14:08:00 08/19/2013 16:45:00 DIS Outpatient KASH GUADALUPE DO [facility] ABDOMINAL PAIN [id number] 08/14/2013 07:12:00 08/14/2013 23:59:59 CLS Outpatient KASH GUADALUPE DO [facility] PREOP ABDOMINAL PAIN [id number] 05/26/2013 20:30:00 05/27/2013 00:26:00 DIS Emergency JANNETH LI [facility] ER FACIAL/SINUS PAIN [id number] 02/10/2013 22:30:00 02/11/2013 00:44:00 DIS Emergency AUGUSTA AYON DO [facility] ER ABD PAIN [id number] 01/10/2018 14:01:00 ACT Emergency ALIYA ELY APRN [facility] ER ABSCESS ON REAREND [id number] 12/05/2016 09:26:00 Document Registration [id number] 12/05/2016 09:26:00 Document Registration [id number] 10/16/2010 07:15:00 Document Registration
--- NOTE | 2018-01-11 09:12 | ED Integumentary General ---
General Chief Complaint: Skin/Wound Problems Stated Complaint: ABSCESS ON REAR END Nursing Triage Note: PT AMBULATED TO RM 7 W/O DIFFICULTIES. PT WAS SEEN IN ED YESTERDAY BY Matteo ELY FOR ABSCESS ON LEFT BACKSIDE. PT STATES SHE IS WORRIED THE ABSCESS MAY BE GETTING INFECTED AND WANTED TO BE SEEN AGAIN SINCE IT IS SUNDAY. PT ALSO STATES SHE HAS SHINGLES ON THE RIGHT. Source: patient Exam Limitations: no limitations History of Present Illness Date Seen by Provider: Jan 11, 2018 Time Seen by Provider: 08:50 Initial Comments Here with report of concerns about worsening in the area of abscess on the left buttock. Noted that the redness had increased somewhat concerned about the need for further antibiotics. Denies fever. States pain is about the same as it was yesterday when the abscess was drained. Apparently not much drainage was obtained during the I&D. She reports taking antibiotics as prescribed. Timing/Duration: week, getting worse Severity: moderate Location: genitalia Associated Symptoms: change in skin texture, edema; No fever Allergies and Home Medications Allergies Coded Allergies: No Known Drug Allergies (Unverified , 01/10/17) Home Medications Dicyclomine HCl 20 Mg Tablet, 20 MG PO Q6H PRN for ABDOMINAL PAIN Prescribed by: RANDOLPH LARA on 03/04/17 0658 Hydrocodone/Acetaminophen 1 Each Tablet, 1 EACH PO Q4H PRN for PAIN-MODERATE TO SEVERE Prescribed by: ALIYA ELY on 01/10/18 1415 Norethindrone 0.35 Mg Tablet, 0.35 MG PO DAILY, (Reported) Ondansetron 8 Mg Tab.rapdis, 8 MG PO PD PRN for q4h Prescribed by: TAMMY BREEN on 01/12/17 1423 Oxycodone HCl/Acetaminophen 1 Each Tablet, 1-2 TAB PO Q4H PRN for PAIN Prescribed by: TAMMY BREEN on 01/12/17 1423 Pantoprazole Sodium 40 Mg Tablet.dr, 40 MG PO DAILY, (Reported) Patient Home Medication List Home Medication List Reviewed: Yes Constitutional: see HPI; No chills, No fever Respiratory: no symptoms reported Cardiovascular: no symptoms reported Gastrointestinal: No abdominal pain, No nausea, No vomiting Genitourinary: no symptoms reported Skin: see HPI, change in color, lesions Past Moyxjlc-Vidslm-Ikxqtz Hx Past Med/Social Hx: Reviewed Nursing Past Med/Soc Hx Patient Social History Alcohol Use: Denies Use Recreational Drug Use: No 2nd Hand Smoke Exposure: No Recent Foreign Travel: No Contact w/Someone Who Travel: No Recent Infectious Disease Expo: No Recent Hopitalizations: No Physical Abuse: No Sexual Abuse: No Immunizations Up To Date Tetanus Booster (TDap): Unknown PED Vaccines UTD: Yes Date of Influenza Vaccine: Jul 22, 2014 Seasonal Allergies Seasonal Allergies: No Past Medical History Surgeries: Yes (ECTOPIC REMOVED, C/S X2, DX LAPAROSCOPY, SALPINGECTOMY) Appendectomy, Section, Gallbladder, Hysterectomy Respiratory: No Cardiac: No (HX. OF MURMUR ; BORN WITH MURMUR) Heart Murmur Neurological: Yes Headaches /Migraines Reproductive Disorders: Yes (CPP, ENOMETRIOSIS) Female Reproductive Disorders: Endometriosis, Ovarian Cyst Sexually Transmitted Disease: Yes (HPV) Gastrointestinal: Yes Gastroesophageal Reflux, Ulcer Musculoskeletal: Yes (FROM ENDOMETRIOSIS) Chronic Back Pain Endocrine: Yes (BOARDERLINE) Loss of Vision: Bilateral Hearing Impairment: Denies Cancer: No Psychosocial: Yes Anxiety Nursing Suicide Risk Score: 0 Integumentary: No Blood Disorders: No Adverse Reaction/Blood Tranf: No (N/A) Family Medical History Reviewed Nursing Family Hx No Pertinent Family Hx Physical Exam Vital Signs Vital Signs - First Documented 01/11/18 08:20 Temp 98.9 Pulse 83 Resp 16 B/P (MAP) 99/65 (76) O2 Delivery Room Air Capillary Refill : Less Than 3 Seconds General Appearance: WD/WN, no apparent distress Cardiovascular: regular rate, rhythm, no murmur Respiratory: lungs clear, normal breath sounds Gastrointestinal: non tender, soft Extremities: normal range of motion, non-tender Neurologic/Psychiatric: alert, oriented x 3 Skin: warm/dry Skin Problem Location: other (left buttock medial aspect) Skin Problem Character: abscess, drainage, erythema, swelling, other (3 x 2 cm area of induration surrounded by 4 x 5 cm area of erythema. Small amount of purulent drainage centrally. No significant fluctuant area though.) Progress/Results/Core Measures My Orders Orders - RANDOLPH LARA MD Rocephin 1000mg Im (01/11/18 09:15) Lidocaine 1% (Xylocaine 1%) (01/11/18 09:15) Vital Signs/I&O 4/20/18 08:20 Temp 98.9 Pulse 83 Resp 16 B/P (MAP) 99/65 (76) O2 Delivery Room Air Blood Pressure Mean: 76 Progress Note : Progress Note Seen and evaluated. Wound evaluated. Small amount of purulent drainage obtained. Cultures reviewed and showed staph aureus. Anticipate Bactrim will be effective. We will give additional dose of Rocephin 1 g IM now given the fact that the redness is reportedly increased. Discharged home with return precautions. Patient verbalize understanding instructions and agreement with plan. Antibiotic ointment and dressing applied to wound. Departure Impression Primary Impression: Abscess Disposition: HOME, SELF-CARE Condition: Stable Departure-Patient Inst. Decision time for Depature: 09:18 Referrals: NO,LOCAL PHYSICIAN (PCP/Family) Primary Care Physician Patient Instructions: Skin Abscess Add. Discharge Instructions: All discharge instructions reviewed with patient and/or family. Voiced understanding. Use antibiotic ointment and dressing over wound 2 or 3 times daily. You should gently wash and or soak wound 2 or 3 times daily. Continue medications as previously prescribed. Return for worse pain, fever, vomiting, weakness, breathing problems or other concerns as needed. Scripts Mupirocin (Mupirocin) 22 Gm Oint...g. 1 GM TP TID, #1 TUBE 0 Refills Prov: RANDOLPH LARA MD 01/11/18 RANDOLPH LARA MD Jan 11, 2018 09:12
[2018-01-11] MEDS ORDERED: cefTRIAXone 1 GM (ROCEPHIN) VIAL IM ONE (09:15)
[2018-01-11] MEDS ORDERED: LIDOCAINE 1% INJ 50 ML (XYLOCAINE) VIAL IJ ONE (09:15)
[2018-01-11] MEDS ORDERED: MUPI22OI2 TP (09:19)
[2018-01-11 09:43] VITALS: BP 99/60
[2018-01-15] MEDS ORDERED: CLIN300C11 PO (08:33)
== END 2018-01-11 09:43 | disposition home or self-care (01) ==
LOC: EDUNIT# 08:19 → ER 08:20
DX: L02.31 Cutaneous abscess of buttock (principal); G43.909 Migraine, unspecified, not intractable, without status migrainosus; K21.9 Gastro-esophageal reflux disease without esophagitis; F41.9 Anxiety disorder, unspecified; Z87.19 Personal history of other diseases of the digestive system; Z87.448 Personal history of other diseases of urinary system; Z90.49 Acquired absence of other specified parts of digestive tract; Z87.59 Personal history of other complications of pregnancy, childbirth and the puerperium; Z90.710 Acquired absence of both cervix and uterus
CPT/HCPCS: 96372; 99284

== ENCOUNTER → 2018-02-13 | Outpatient (CLI) | payer MEDICAID ==
[~2018-02-13] MED LIST changes: +CLIN300C11 PO; +MUPI22OI2 TP
--- NOTE | 2018-02-13 16:08 | Diagnostic Imaging Report ---
INDICATION: Cough x2 months. PA and lateral chest. Heart size and pulmonary vascularity are normal. Lungs are clear. There are no effusions or pneumothoraces. IMPRESSION: Negative chest. Dictated by: Dictated on workstation # [id number]
== END ==
LOC: RAD 15:44
PROVIDERS: ATTEND Nurse Practitioner Family
DX: R05 Cough (principal)
CPT/HCPCS: 71046

== ENCOUNTER 2018-09-21 23:34 | Emergency (ER) | payer MEDICAID ==
[~2018-09-21] VITALS: Ht 149.9 cm; Wt 47.6 kg
[~2018-09-21 23:34] MED LIST changes: +HYDR-4226 PO; -HYDR-757 PO; -OXYC-202 PO; +OXYC1TAB12 PO
--- OUTSIDE RECORDS SUMMARY | 2018-09-21 23:58 | XMS REPORT | CCD ---
Author Author Rebeka Burgos Organization [facility] Address [address] [place] [address] Phone Care Team Providers Care Twister Hand Name Role Phone PP Unavailable CCM Unavailable Summary Purpose Interface Exchange Family history Mother Diagnosis Age At Onset No Known Diseases N/A Father Diagnosis Age At Onset Arthritis Unknown Runs in the family Diagnosis Age At Onset Breast cancer Unknown Skin cancer Unknown Social History Social History Element Codes Description Effective Dates Marital status Unknown 01/17/2018 Number of children Unknown 2 01/17/2018 Alcohol history Unknown occasionally drinks alcohol 01/17/2018 Has the patient ever used illegal drugs? Unknown Has never used illegal drugs 01/17/2018 Allergies, Adverse Reactions, Alerts Substance Reaction Codes Entered Date Inactivated Date Status * NO KNOWN DRUG ALLERGIES Unknown 01/17/2018 No Inactive Date Active Past Medical History Illness Codes Condition Status Onset Date Resolved Date Cough ICD-9: 786.2 ICD-10: R05 Active 03/11/2018 Unknown Gastro-esophageal reflux disease without esophagitis ICD-9: 530.81 ICD-10: K21.9 Active 03/11/2018 Unknown Follicular disorder, unspecified ICD-9: 704.8 ICD-10: L73.9 Active 01/28/2018 Unknown Rash and other nonspecific skin eruption ICD-9: 782.1 ICD-10: R21 Active 01/28/2018 Unknown Cutaneous abscess of buttock ICD-9: 682.5 ICD-10: L02.31 Active 01/17/2018 Unknown Zoster without complications ICD-9: 053.9 ICD-10: B02.9 Active 01/17/2018 Unknown Problems Condition Codes Effective Dates Condition Status Cough ICD-9: 786.2 ICD-10: R05 03/11/2018 Active Gastro-esophageal reflux disease without esophagitis ICD-9: 530.81 ICD-10: K21.9 03/11/2018 Active Follicular disorder, unspecified ICD-9: 704.8 ICD-10: L73.9 01/28/2018 Active Rash and other nonspecific skin eruption ICD-9: 782.1 ICD-10: R21 01/28/2018 Active Cutaneous abscess of buttock ICD-9: 682.5 ICD-10: L02.31 01/17/2018 Active Zoster without complications ICD-9: 053.9 ICD-10: B02.9 01/17/2018 Active Medications Medication Codes Instructions Start Date Stop Date Status Fill Instructions Zofran ODT 4 mg disintegrating tablet RxNorm: 595798 1 Tablet(s) PO Q6 as needed 07/30/2018 09/27/2018 Active Zofran ODT 4 mg disintegrating tablet RxNorm: 541276 1 Tablet(s) PO Q6 as needed 07/30/2018 07/29/2018 Inactive Diflucan 150 mg tablet RxNorm: 243433 1 Tablet(s) PO daily 05/21/2018 Inactive Protonix 40 mg tablet,delayed release RxNorm: 101035 1 Tablet(s) PO daily 03/21/2018 08/17/2018 Active Zofran 4 mg tablet RxNorm: 647104 1 Tablet(s) PO Q6 PRN 03/1107/29/2018 Inactive Carafate 1 gram tablet RxNorm: 371352 1 Tablet(s) PO AC & HS 03/24/2018 Inactive prednisone 10 mg tablet RxNorm: 778298 Tablet(s) PO 01/30/2018 No Stop Date Active 6, 5,4,3,2,1 doxycycline hyclate 100 mg tablet RxNorm: 117907 1 Tablet(s) PO BID 01/28/2018 02/03/2018 Inactive Diflucan 150 mg tablet RxNorm: 053258 1 Tablet(s) PO daily 03/201802/03/2018 Inactive clindamycin HCl 300 mg capsule RxNorm: 210994 1 Capsule(s) PO TID 01/17/2018 01/19/2018 Inactive acyclovir 800 mg tablet RxNorm: 354783 1 Tablet(s) PO five times per day 5x daily 01/17/2018 01/27/2018 Inactive mupirocin 2 % topical ointment RxNorm: 440483 1 Application TOP BID 01/17/2018 01/26/2018 Inactive estradiol 0.1 mg/24 hr semiweekly transdermal patch RxNorm: 414868 1 Patch TD BIW No Start Date Active Protonix 40 mg tablet,delayed release RxNorm: 433501 1 Tablet(s) PO daily No Start Date 03/20/2018 Inactive acyclovir 800 mg tablet RxNorm: 634908 1 Tablet(s) PO five times per day No Start Date 01/16/2018 Inactive clindamycin HCl oral RxNorm: 2582 oral No Start Date 01/27/2018 Inactive prednisone 10 mg tablet RxNorm: 037592 Tablet(s) PO No Start Date 01/29/2018 Inactive 6,5,4,3,2,1 Medication Administered No Medication Administered data Immunizations Vaccine Codes Date Status Tetanus, Diptheria, Pertussis CVX: 113 completed Tetanus/Diptheria CVX: 113 04/24/2016 completed Assessments Condition Codes Effective Dates Gastro-esophageal reflux disease without esophagitis ICD-10 : K21.9 ICD-9: 530.81 03/11/2018 Cough ICD-10: R05 ICD-9: 786.2 03/11/2018 Rash and other nonspecific skin eruption ICD-10: R21 ICD-9: 782.1 01/28/2018 Follicular disorder, unspecified ICD-10: L73.9 ICD-9: 704.8 01/28/2018 Zoster without complications ICD-10: B02.9 ICD-9: 053.9 01/17/2018 Cutaneous abscess of buttock ICD-10: L02.31 ICD-9: 682.5 01/17/2018 Reason For Visit Reason For Visit Effective Dates Notes sinus congestion 03/11/2018 rash 01/28/2018 rash 01/17/2018 Results No Results data Review of Systems System Result Effective Dates Constitutional recent illness 03/11/2018 Constitutional No anorexia 03/11/2018 Constitutional No night sweats 2017 Constitutional No chills 03/11/2018 Constitutional No diaphoresis 03/11/2018 Constitutional No fatigue 03/11/2018 Constitutional No fever 03/11/2018 Constitutional No insomnia 03/11/2018 Constitutional No malaise 03/11/2018 Constitutional No weight loss 03/11/2018 Constitutional No weight gain 03/11/2018 Eyes No eye discharge 03/11/2018 Eyes No eye erythema 03/11/2018 Ears/Nose/Throat/Neck No dizziness 2017 Cardiovascular No chest pain/pressure Cardiovascular No dyspnea 03/11/2018 Cardiovascular No edema 03/11/2018 Respiratory No productive sputum 2017 Respiratory No chest congestion 2017 Gastrointestinal No abdominal pain 2017 Gastrointestinal No constipation 2017 Gastrointestinal No diarrhea 03/11/2018 Gastrointestinal nausea 03/11/2018 Gastrointestinal No vomiting 03/11/2018 Genitourinary/Nephrology No dysuria 03/11 Musculoskeletal No joint complaint 2017 Dermatologic No rash 03/11/2018 Dermatologic No sores 03/11/2018 Neurologic No alteration of consciousness 03/11/2018 Psychiatric No anxiety 03/11/2018 Endocrine No dry or coarse skin 2017 Respiratory cough 03/11/2018 Ears/Nose/Throat/Neck No nasal discharge 03/11/2018 Ears/Nose/Throat/Neck No otalgia 2017 Ears/Nose/Throat/Neck sinus congestion Ears/Nose/Throat/Neck No sore throat Gastrointestinal gastroesophageal reflux 03/11/2018 Constitutional No recent illness 2017 Constitutional No anorexia 01/28/2018 Constitutional No night sweats 2017 Constitutional No chills 01/28/2018 Constitutional No diaphoresis 01/28/2018 Constitutional No fatigue 01/28/2018 Constitutional No insomnia 01/28/2018 Constitutional No fever 01/28/2018 Constitutional No malaise 01/28/2018 Dermatologic rash 01/28/2018 Constitutional recent illness 01/17/2018 Constitutional No anorexia 01/17/2018 Constitutional No night sweats 2017 Constitutional No chills 01/17/2018 Constitutional No diaphoresis 01/17/2018 Constitutional No fatigue 01/17/2018 Constitutional No fever 01/17/2018 Constitutional No insomnia 01/17/2018 Constitutional No weight loss 01/17/2018 Constitutional No weight gain 01/17/2018 Constitutional No malaise 01/17/2018 Ears/Nose/Throat/Neck No dizziness 2017 Eyes No eye discharge 01/17/2018 Eyes No eye erythema 01/17/2018 Cardiovascular No chest pain/pressure Cardiovascular No dyspnea 01/17/2018 Cardiovascular No edema 01/17/2018 Respiratory No productive sputum 2017 Respiratory No chest congestion 2017 Gastrointestinal No abdominal pain 2017 Gastrointestinal No constipation 2017 Gastrointestinal diarrhea 01/17/2018 Gastrointestinal No vomiting 01/17/2018 Gastrointestinal No nausea 01/17/2018 Genitourinary/Nephrology No dysuria 01/17 Musculoskeletal No joint complaint 2017 Dermatologic rash 01/17/2018 Dermatologic sores 01/17/2018 Neurologic No alteration of consciousness 01/17/2018 Psychiatric No anxiety 01/17/2018 Endocrine No dry or coarse skin 2017 Physical Exam Exam Name System Name Item Name Status Result Effective Dates Notes Full Exam - General 1994 Constitutional general appearance Overall: well developed 03/11/2018 None Full Exam - General 1994 Constitutional general appearance Overall: in no acute distress 03/11/2018 None Full Exam - General 1994 Constitutional general appearance Overall: well nourished 03/11/2018 None Full Exam - General 1994 Psychiatric orientation/consciousness Overall: oriented to person, place and time 03/11/2018 None Full Exam - General 1994 Neurologic cranial nerves Overall: crainial nerves 2 - 12 grossly intact 03/11/2018 None Full Exam - General 1994 Integument inspection of skin Overall: few scattered moles, no gross abnormalities 03/11/2018 None Full Exam - General 1994 Lymphatic neck nodes Overall: anterior cervical chain benign 03/11/2018 None Full Exam - General 1994 Lymphatic neck nodes Overall: posterior cervical chain benign 03/11/2018 None Full Exam - General 1994 Cardiovascular auscultation of heart Overall: regular rate 03/11/2018 None Full Exam - General 1994 Cardiovascular auscultation of heart Overall: normal heart sounds 03/11/2018 None Full Exam - General 1994 Cardiovascular auscultation of heart Overall: no murmurs 03/11/2018 None Full Exam - General 1994 Respiratory auscultation Overall: breath sounds clear bilaterally 03/11/2018 None Full Exam - General 1994 Respiratory respiratory effort/rhythm Overall: normal rate 03/11/2018 None Full Exam - General 1994 Respiratory respiratory effort/rhythm Overall: no retractions 03/11/2018 None Full Exam - General 1994 Ears/Nose/Throat otoscopic exam Overall: external auditory canals clear 03/11/2018 None Full Exam - General 1994 Ears/Nose/Throat otoscopic exam Overall: tympanic membranes clear 03/11/2018 None Full Exam - General 1994 Ears/Nose/Throat oral cavity/pharynx/larynx Overall: oral mucosa clear 03/11/2018 None Full Exam - General 1994 Eyes conjunctiva /eyelids Overall: conjunctiva clear 03/11/2018 None Full Exam - General 1994 Eyes pupils and irises Overall: pupils equal, round, reactive to light and accomodation 03/11/2018 None Full Exam - Dermatology Constitutional general appearance Overall: well nourished 01/28/2018 None Full Exam - Dermatology Constitutional general appearance Overall: well developed 01/28/2018 None Full Exam - Dermatology Constitutional general appearance Overall: in no acute distress 01/28/2018 None Full Exam - Dermatology Constitutional general appearance Overall: of normal body habitus 01/28/2018 None Full Exam - Dermatology Constitutional general appearance Overall: well groomed 01/28/2018 None Full Exam - Dermatology Psychiatric orientation Overall: oriented to person, place and time 01/28/2018 None Full Exam - Dermatology Integument insp & palp - chest/axillae Lesion: pustule 01/28/2018 None Full Exam - Dermatology Integument insp & palp - chest/axillae Distribution: generalized 01/28/2018 None Full Exam - Dermatology Integument insp & palp - back Lesion: pustule 01/28/2018 None Full Exam - Dermatology Integument insp & palp - back Distribution: generalized 01/28/2018 None Full Exam - Dermatology Integument insp & palp - back Location: on the upper back 01/28/2018 None Full Exam - Dermatology Integument insp & palp - back Location: on the lower back 01/28/2018 None Full Exam - Dermatology Integument insp & palp - chest/axillae Location: on the upper chest 01/28/2018 None Full Exam - Dermatology Integument insp & palp - chest/axillae Location: on the mid chest 01/28/2018 None Full Exam - General 1994 Constitutional general appearance Overall: well developed 01/17/2018 None Full Exam - General 1994 Constitutional general appearance Overall: in no acute distress 01/17/2018 None Full Exam - General 1994 Constitutional general appearance Overall: well nourished 01/17/2018 None Full Exam - General 1994 Psychiatric orientation/consciousness Overall: oriented to person, place and time 01/17/2018 None Full Exam - General 1994 Integument inspection of skin Location: buttocks 01/17/2018 left buttock-cyst -small amount of erythema and induration-no drainage Full Exam - General 1994 Integument inspection of skin Rash/Lesions: vesicle 01/17/2018 right middle back Procedures No Procedures data Vital Signs Date Vital 03/11/2018 Blood Pressure 1: 124/80 Code : 8480-6 BMI: 21.0 Code : 38996-3 Heart Rate 1 : 66 bpm Height: 4'11" SpO2: 97% Temperature: 36.8 (C) / 98.3 (F) Weight: 104 lbs 01/28/2018 Height: Temperature: 36.7 (C) / 98.0 (F) Weight: 01/17/2018 Blood Pressure 1: 110/82 Code : 8480-6 BMI: 21.0 Code : 71813-9 Heart Rate 1 : 66 bpm Height: 4'11" SpO2: 99% Temperature: 36.7 (C) / 98.1 (F) Weight: 104 lbs Functional Status No Functional Status data History of Present Illness Symptom Name Status Result Effective Date Notes sinus congestion Onset and Resolution sudden in onset 03/11/2018 None sinus congestion Onset of Symptom 1 weeks ago 03/11/2018 None sinus congestion Frequency of Episodes daily 03/11/2018 None sinus congestion Timing of Episodes all day long 03/11/2018 None sinus congestion Pertinent Findings cough 03/11/2018 None sinus congestion Pertinent Findings decreased energy level 03/11/2018 None sinus congestion Pertinent Findings facial pain 03/11/2018 None sinus congestion Pertinent Findings fever 03/11/2018 May of had a fever on Sunday cough Location in the throat 03/11/2018 None cough Quality dry None cough Onset and Resolution ongoing 03/11/2018 None cough Pertinent Findings Denies chest discomfort 03/11/2018 None cough Pertinent Findings facial pain 03/11/2018 None cough Pertinent Findings heartburn 03/11/2018 None sinus congestion Severity mild 03/11/2018 None sinus congestion Triggers no known associated factors 03/11/2018 None rash Location-Major on the upper body 01/28/2018 None rash Quality acute 03/2018 None rash Color erythematous 01/28/2018 None rash Onset and Resolution ongoing 01/28/2018 None rash Onset of Symptom _ hours ago 01/28/2018 None rash Limitation on Activities does not limit activities 01/28/2018 None rash Severity worsening 01/28/2018 None rash Prior Treatments previously untreated 01/28/2018 None rash Triggers no known triggers 01/28/2018 None rash Pertinent Findings Denies fever 01/28/2018 None rash Pertinent Findings Denies flushing 01/28/2018 None rash Location-Major on the back 01/17/2018 None rash Location-Trunk on the right side of the back 01/17/2018 None rash Quality acute None rash Quality fading None rash Quality painful 01/17/2018 None rash Onset and Resolution sudden in onset 01/17/2018 None rash Alleviating Factors treatment medication 01/17/2018 (acyclovir) rash Pertinent Findings Denies fever 01/17/2018 None sores Location-Major on the lower body 01/17/2018 None sores Location-Trunk on the buttocks 01/17/2018 None sores Quality acute None sores Quality improving 01/17/2018 None sores Quality painful 01/17/2018 None sores Onset and Resolution sudden in onset 01/17/2018 None sores Alleviating Factors treatment medication 01/17/2018 (clindamycin) sores Pertinent Findings Denies fever 01/17/2018 None Advance Directives No Advance Directive data Encounters Encounter Performer Location Codes Date ( 29137 EST. PATIENT, LEVEL III Diagnosis: Cough[ICD10: R05] Diagnosis: Gastro-esophageal reflux disease without esophagitis[ICD10: K21.9] Rebeka Garcia MD, [facility] CPT-4: 21447 03/11/2018 76709 EST. PATIENT, LEVEL II Diagnosis: Follicular disorder, unspecified[ICD10: L73.9] Diagnosis: Rash and other nonspecific skin eruption[ICD10: R21] [facility] CPT-4: 61360 01/28/2018 OFFICE VISIT, NEW - LEVEL 3 Diagnosis: Zoster without complications[ICD10: B02.9] Diagnosis: Cutaneous abscess of buttock[ICD10: L02.31] Rebeka Garcia MD, [facility] CPT-4: 89785 01/17/2018 Plan of Care Planned Activity Notes Codes Status Date Visit Plan: Esophageal Reflux - the patient has been counseled against excessive intake of caffeine, spicy foods, peppermint, and cinnamon - all of which can exacerbate esophageal reflux. The patient is to take medications as prescribed and call the office if the symptoms are not improving. 03/11/2018 Appointment: Rebeka Burgos WPtel: [facility] [address] (15 min) Moderate 03/11/2018 Patient Education: Patient Medication Summary Completed 03/11/2018 Visit Plan: Folliculitis-culture obtained today in the office-rx sent to patient's pharmacy and instructed on use-call if symptoms do not resolve 01/28/2018 Appointment: Rebeka Burgos WPtel: [address] [place] [address] (15 min) Moderate 01/28/2018 Patient Education: Patient Medication Summary Completed 01/28/2018 Visit Plan: Shingles-continue acyclovir as directed-return if symptoms do not resolve as discussed Abscess of buttock-continue clindamycin- return if symptoms do not resolve completely 01/17/2018 Appointment: Rebeka Burgos WPtel: [address] [place] [address] New Patient 01/17/2018 Patient Education: Patient Medication Summary Completed 01/17/2018 Instructions Comment . Folliculitis-culture obtained today in the office-rx sent to patient's pharmacy and instructed on use-call if symptoms do not resolve refill acyclovir x 3 more day refill clindamycin x 3 more days probiotic daily to help with diarrhea refill mupirocin ointment . Shingles-continue acyclovir as directed-return if symptoms do not resolve as discussed Abscess of buttock-continue clindamycin-return if symptoms do not resolve completely Continue protonix add carafate discussed referral for EGD if symptoms persist . Esophageal Reflux - the patient has been counseled against excessive intake of caffeine, spicy foods, peppermint, and cinnamon - all of which can exacerbate esophageal reflux. The patient is to take medications as prescribed and call the office if the symptoms are not improving.
--- OUTSIDE RECORDS SUMMARY | 2018-09-21 23:58 | XMS REPORT ---
Author Author YUNIOR LI [facility] Address [address] [place] [address] Care Team Providers Care Aerospace Mechanic Name Role Phone YUNIOR LI Unavailable PROBLEMS Type Condition ICD9-CM Code [id number] Code Onset Dates Condition Status SNOMED Code Problem Urinary tract infection, site not specified 599.0 Active 40451667 ALLERGIES No Known Allergies ENCOUNTERS Encounter Location Date Diagnosis [facility] [address] [address] Jul, Encounter for pre-employment examination Z02.1 and Visit for TB skin test Z11.1 [facility] [address] [address] Dec, [facility] [address] [address] Dec, Herpes zoster without complication B02.9 [facility] [address] [place] [id number] [place] [phone] Dec, [facility] [id number] [place] [phone] Dec, Acute folliculitis L73.9 [facility] [address] [address] Aug, [place] [address] [address] Dec, 2014 [facility] [address] [address] Dec, [facility] [address] [address] May, [facility] [address] [facility] [id number] [place] [address] May, [facility] [address] [facility] [id number] [place] [address] Jul, [facility] [address] [facility] [id number] [place] [address] Jul, IMMUNIZATIONS No Known Immunizations SOCIAL HISTORY Never Assessed REASON FOR VISIT Pt is here for a pre employment physical and TB skin test.>[facility] PLAN OF CARE Activity Details Follow Up 48-72 hours Reason:TB read VITAL SIGNS Height 51 in 2018-08-20 Weight 108.3 lbs 2018-08-20 Heart Rate 60 bpm 2018-08-20 Respiratory Rate 16 2018-08-20 BMI 29.27 kg/m2 2018-08-20 Blood pressure systolic 130 mmHg 2018-08-20 Blood pressure diastolic 70 mmHg 2018-08-20 MEDICATIONS Medication Instructions Dosage Frequency Start Date End Date Duration Status Estrogel 0.75 MG/1.25 GM (0.06%) Transdermal Once a day 1 application to skin 24h Active Protonix 40 MG Orally Once a day 1 tablet 24h Active RESULTS No Results PROCEDURES Procedure Date Ordered Result Body Site TB INTRADERMAL 2018-08-20 N/A VISUAL ACUITY SCREEN Aug 20, 2018 LAB NOT BILLED BY [facility] Aug 20, 2018 TB INTRADERMAL TEST Aug 20, 2018 INSTRUCTIONS MEDICATIONS ADMINISTERED No Known Medications MEDICAL (GENERAL) HISTORY Type Description Date Medical History endometriosis Medical History peptic ulcer disease Surgical History hysterectomy total 2017 Surgical History appendecotmy 2013 Surgical History gallbladder 2013 Surgical History etopic 1999 Surgical History Laproscopic surgery x 2 2013/2015 Surgical History x 2 Hospitalization History surgical procedures
--- OUTSIDE RECORDS SUMMARY | 2018-09-21 23:58 | XMS REPORT | CCD ---
Author Author Rebeka Burgos Organization [facility] Address [address] [place] [address] Phone Care Team Providers Care Senior Quality Control Technician Name Role Phone PP Unavailable CCM Unavailable [...] Start Date Stop Date Status Fill Instructions promethazine 25 mg tablet RxNorm: 797500 1 Tablet(s) PO TID as needed 07/31/2018 No Stop Date Active Zofran ODT 4 mg disintegrating tablet RxNorm: 985019 1 Tablet(s) PO Q6 as needed 07/30/2018 09/27/2018 Active Zofran ODT 4 mg disintegrating tablet RxNorm: 357268 1 Tablet(s) PO Q6 as needed 07/30/2018 07/29/2018 Inactive Diflucan 150 mg tablet RxNorm: 037100 1 Tablet(s) PO daily 05/21/2018 Inactive Protonix 40 mg tablet,delayed release RxNorm: 664478 1 Tablet(s) PO daily 03/21/2018 08/17/2018 Active Zofran 4 mg tablet RxNorm: 380537 1 Tablet(s) PO Q6 PRN 03/1107/29/2018 Inactive Carafate 1 gram tablet RxNorm: 025821 1 Tablet(s) PO AC & HS 03/24/2018 Inactive prednisone 10 mg tablet RxNorm: 802003 Tablet(s) PO 01/30/2018 No Stop Date Active 6, 5,4,3,2,1 doxycycline hyclate 100 mg tablet RxNorm: 212850 1 Tablet(s) PO BID 01/28/2018 02/03/2018 Inactive Diflucan 150 mg tablet RxNorm: 712745 1 Tablet(s) PO daily 03/201802/03/2018 Inactive clindamycin HCl 300 mg capsule RxNorm: 133904 1 Capsule(s) PO TID 01/17/2018 01/19/2018 Inactive acyclovir 800 mg tablet RxNorm: 036998 1 Tablet(s) PO five times per day 5x daily 01/17/2018 01/27/2018 Inactive mupirocin 2 % topical ointment RxNorm: 105181 1 Application TOP BID 01/17/2018 01/26/2018 Inactive estradiol 0.1 mg/24 hr semiweekly transdermal patch RxNorm: 365434 1 Patch TD BIW No Start Date Active Protonix 40 mg tablet,delayed release RxNorm: 759755 1 Tablet(s) PO daily No Start Date 03/20/2018 Inactive acyclovir 800 mg tablet RxNorm: 937257 1 Tablet(s) PO five times per day No Start Date 01/16/2018 Inactive clindamycin HCl oral RxNorm: 2582 oral No Start Date 01/27/2018 Inactive prednisone 10 mg tablet RxNorm: 849313 Tablet(s) PO No Start Date 01/29/2018 Inactive 6,5,4,3,2,1 promethazine 25 mg tablet RxNorm: 334273 1 Tablet(s) PO TID as needed No Start Date 07/30/2018 Inactive Medication Administered No Medication Administered data Immunizations [...] Code : 8480-6 BMI: 21.0 Code : 72277-3 Heart Rate 1 : 66 bpm Height: 4'11" SpO2: 97% Temperature: 36.8 (C) / 98.3 (F) Weight: 104 lbs 01/28/2018 Height: Temperature: 36.7 (C) / 98.0 (F) Weight: 01/17/2018 Blood Pressure 1: 110/82 Code : 8480-6 BMI: 21.0 Code : 73999-4 Heart Rate 1 : 66 bpm Height: [...] Encounters Encounter Performer Location Codes Date ( 18298 EST. PATIENT, LEVEL III Diagnosis: Cough[ICD10: R05] Diagnosis: Gastro-esophageal reflux disease without esophagitis[ICD10: K21.9] [facility] CPT-4: 33900 03/11/2018 08780 EST. PATIENT, LEVEL II Diagnosis: Follicular disorder, unspecified[ICD10: L73.9] Diagnosis: Rash and other nonspecific skin eruption[ICD10: R21] [facility] CPT-4: 07899 01/28/2018 OFFICE VISIT, NEW - LEVEL 3 Diagnosis: Zoster without complications[ICD10: B02.9] Diagnosis: Cutaneous abscess of buttock[ICD10: L02.31] Rebeka Garcia MD, [facility] CPT-4: 48748 01/17/2018 Plan of Care Planned Activity Notes Codes Status Date Visit Plan: Esophageal Reflux - the patient has been counseled against excessive intake of caffeine, spicy foods, peppermint, and cinnamon - all of which can exacerbate esophageal reflux. The patient is to take medications as prescribed and call the office if the symptoms are not improving. 03/11/2018 Appointment: Rebeka Burgos WPtel: [facility] [address] (15 min) Moderate 03/11/2018 Patient Education: Patient Medication Summary Completed 03/11/2018 Visit Plan: Folliculitis-culture obtained today in the office-rx sent to patient's pharmacy and instructed on use-call if symptoms do not resolve 01/28/2018 Appointment: Rebeka Burgos WPtel: [address] [place] [address] (15 min) Moderate 01/28/2018 Patient Education: Patient Medication Summary Completed 01/28/2018 Visit Plan: Shingles-continue acyclovir as directed-return if symptoms do not resolve as discussed Abscess of buttock-continue clindamycin- return if symptoms do not resolve completely 01/17/2018 Appointment: Rebeka Burgos WPtel: [address] [place], [place] [phone] New Patient 01/17/2018 Patient Education: Patient Medication [...]
--- OUTSIDE RECORDS SUMMARY | 2018-09-21 23:58 | XMS REPORT | CCD ---
Author Author Rebeka Burgos Organization [facility] Address [address] [place] [address] Phone Care Team Providers Care Quitline Counselor Name Role Phone PP Unavailable CCM Unavailable [...] Start Date Stop Date Status Fill Instructions Diflucan 150 mg tablet RxNorm: 557854 1 Tablet(s) PO daily 05/21/2018 Active Protonix 40 mg tablet,delayed release RxNorm: 131866 1 Tablet(s) PO daily 03/21/2018 08/17/2018 Active Zofran 4 mg tablet RxNorm: 263895 1 Tablet(s) PO Q6 PRN 03/11 No Stop Date Active Carafate 1 gram tablet RxNorm: 430042 1 Tablet(s) PO AC & HS 03/24/2018 Inactive prednisone 10 mg tablet RxNorm: 084099 Tablet(s) PO 01/30/2018 No Stop Date Active 6, 5,4,3,2,1 doxycycline hyclate 100 mg tablet RxNorm: 726236 1 Tablet(s) PO BID 01/28/2018 02/03/2018 Inactive Diflucan 150 mg tablet RxNorm: 990271 1 Tablet(s) PO daily 03/201802/03/2018 Inactive clindamycin HCl 300 mg capsule RxNorm: 366502 1 Capsule(s) PO TID 01/17/2018 01/19/2018 Inactive acyclovir 800 mg tablet RxNorm: 959107 1 Tablet(s) PO five times per day 5x daily 01/17/2018 01/27/2018 Inactive mupirocin 2 % topical ointment RxNorm: 550749 1 Application TOP BID 01/17/2018 01/26/2018 Inactive estradiol 0.1 mg/24 hr semiweekly transdermal patch RxNorm: 578426 1 Patch TD BIW No Start Date Active Protonix 40 mg tablet,delayed release RxNorm: 668140 1 Tablet(s) PO daily No Start Date 03/20/2018 Inactive acyclovir 800 mg tablet RxNorm: 355371 1 Tablet(s) PO five times per day No Start Date 01/16/2018 Inactive clindamycin HCl oral RxNorm: 2582 oral No Start Date 01/27/2018 Inactive prednisone 10 mg tablet RxNorm: 167481 Tablet(s) PO No Start Date 01/29/2018 Inactive [...] Code : 8480-6 BMI: 21.0 Code : 46771-9 Heart Rate 1 : 66 bpm Height: 4'11" SpO2: 97% Temperature: 36.8 (C) / 98.3 (F) Weight: 104 lbs 01/28/2018 Height: Temperature: 36.7 (C) / 98.0 (F) Weight: 01/17/2018 Blood Pressure 1: 110/82 Code : 8480-6 BMI: 21.0 Code : 18015-9 Heart Rate 1 : 66 bpm Height: [...] data Encounters Encounter Performer Location Codes Date EST. PATIENT, LEVEL III Diagnosis: Cough[ICD10: R05] Diagnosis: Gastro-esophageal reflux disease without esophagitis[ICD10: K21.9] Rebeka Garcia MD, [facility] CPT-4: 07087 03/11/2018 39255 EST. PATIENT, LEVEL II Diagnosis: Follicular disorder, unspecified[ICD10: L73.9] Diagnosis: Rash and other nonspecific skin eruption[ICD10: R21] [facility] CPT-4: 28238 01/28/2018 OFFICE VISIT, NEW - LEVEL 3 Diagnosis: Zoster without complications[ICD10: B02.9] Diagnosis: Cutaneous abscess of buttock[ICD10: L02.31] [facility] CPT-4: 74454 01/17/2018 Plan of Care Planned Activity Notes Codes Status Date Visit Plan: Esophageal Reflux - the patient has been counseled against excessive intake of caffeine, spicy foods, peppermint, and cinnamon - all of which can exacerbate esophageal reflux. The patient is to take medications as prescribed and call the office if the symptoms are not improving. 03/11/2018 Appointment: Rebeka Burgos WPtel: [address] [place], [place] [phone] [place] [address] (15 min) Moderate 03/11/2018 Patient Education: Patient Medication Summary Completed 03/11/2018 Visit Plan: Folliculitis-culture obtained today in the office-rx sent to patient's pharmacy and instructed on use-call if symptoms do not resolve 01/28/2018 Appointment: Rebeka Burgos WPtel: [facility] [place] [address] (15 min) Moderate 01/28/2018 Patient Education: Patient Medication Summary Completed 01/28/2018 Visit Plan: Shingles-continue acyclovir as directed-return if symptoms do not resolve as discussed Abscess of buttock-continue clindamycin- return if symptoms do not resolve completely 01/17/2018 Appointment: Rebeka Burgos WPtel: [facility] [place] [address] New Patient 01/17/2018 Patient Education: Patient Medication [...]
--- OUTSIDE RECORDS SUMMARY | 2018-09-21 23:59 | XMS REPORT ---
Author Author ALICIA HOLM Organization [facility] Address [address] [place] [address] Care Team Providers Care Lab Specialist Name Role Phone ALICIA HOLM Unavailable PROBLEMS Type Condition ICD9-CM Code AUX50-HB Code Onset Dates Condition Status SNOMED Code Problem Urinary tract infection, site not specified 599.0 Active 85724653 ALLERGIES No Known Allergies ENCOUNTERS Encounter Location Date Diagnosis [facility] [id number] [place] [address] Dec, [facility] [address] [address] Dec, Herpes zoster without complication B02.9 [facility] [address] [address] Dec, [facility] [address] [address] Dec, Acute folliculitis L73.9 [facility] [id number] [place] [address] Aug, [facility] [id number] [place] [address] Dec, [facility] [id number] [place] [address] Dec, [facility] [address] [address] May, [facility] [id number] [place] [address] May, [facility] [address] [address] Jul, [facility] [address] [facility] [id number] [place] [address] Jul, IMMUNIZATIONS No Known Immunizations SOCIAL HISTORY Never Assessed REASON FOR VISIT boil left buttock started yesterday JStrasserRN PLAN OF CARE Activity Details Follow Up prn Reason: VITAL SIGNS Weight 104.4 lbs 2018-01-08 Temperature 97.5 degrees Fahrenheit 2018-01-08 Heart Rate 60 bpm 2018-01-08 Respiratory Rate 18 2018-01-08 Blood pressure systolic 102 mmHg 2018-01-08 Blood pressure diastolic 70 mmHg 2018-01-08 MEDICATIONS Medication Instructions Dosage Frequency Start Date End Date Duration Status Estrogel 0.75 MG/1.25 GM (0.06%) Transdermal Once a day 1 application to skin 24h Active Protonix 40 MG Orally Once a day 1 tablet 24h Active Bactrim DS 800-160 MG Orally twice daily 1 tablet Dec, Dec, 10 day(s) Active RESULTS No Results PROCEDURES No Known procedures INSTRUCTIONS MEDICATIONS ADMINISTERED No Known Medications MEDICAL (GENERAL) HISTORY Type Description Date Surgical History hysterectomy
--- OUTSIDE RECORDS SUMMARY | 2018-09-21 23:59 | XMS REPORT ---
Author Author AMIRA LACKEY Organization [facility] Address [address] [place] [address] Care Team Providers Care Ruling Machine Set Up Operator Name Role Phone AMIRA LACKEY Unavailable PROBLEMS Type Condition ICD9-CM Code [id number] Code Onset Dates Condition Status SNOMED Code Problem Urinary tract infection, site not specified 599.0 Active 02483237 ALLERGIES No Information ENCOUNTERS Encounter Location Date Diagnosis [facility] [id number] [place] [address] Dec, [facility] [id number] [place] [address] Dec, Herpes zoster without complication B02.9 [facility] [id number] [place] [address] Dec, [facility] [id number] [place] [address] Dec, Acute folliculitis L73.9 [facility] [id number] [place] [address] Aug, [facility] [id number] [place] [address] Dec, [facility] [id number] [place] [address] Dec, [facility] [address] [address] May, [facility] [id number] [place] [address] May, [facility] [id number] [place] [address] Jul, [facility] [address] [facility] [id number] [place] [address] Jul, IMMUNIZATIONS No Known Immunizations SOCIAL HISTORY Never Assessed REASON FOR VISIT Requesting medication PLAN OF CARE VITAL SIGNS MEDICATIONS Unknown Medications RESULTS No Results PROCEDURES No Known procedures INSTRUCTIONS MEDICATIONS ADMINISTERED No Known Medications MEDICAL (GENERAL) HISTORY Type Description Date Surgical History hysterectomy
--- OUTSIDE RECORDS SUMMARY | 2018-09-21 23:59 | XMS REPORT ---
Author Author ALICIA HOLM Organization [facility] Address [address] [place] [address] Care Team Providers Care Customer Contact Specialist Name Role Phone ALICIA HOLM Unavailable PROBLEMS Type Condition ICD9-CM Code LII38-IJ Code Onset Dates Condition Status SNOMED Code Problem Urinary tract infection, site not specified 599.0 Active 63539280 ALLERGIES No Known Allergies ENCOUNTERS Encounter Location Date Diagnosis [facility] [id number] [place] [address] Dec, [facility] [address] [address] Dec, Herpes zoster without complication B02.9 [facility] [address] [address] Dec, [facility] [address] [address] Dec, Acute folliculitis L73.9 [facility] [id number] [place] [address] Aug, [facility] [id number] [place] [address] Dec, [facility] [id number] [place] [address] Dec, [facility] [address] [address] May, [facility] [id number] [place] [address] May, [facility] [address] [address] Jul, [facility] [address] [facility] [id number] [place] [address] Jul, IMMUNIZATIONS No Known Immunizations SOCIAL HISTORY Never Assessed REASON FOR VISIT possible shingles Pt has a rash on back which feels may be shingles, also wants to have the boil on the buttocks looked at again EVA Tran PLAN OF CARE Activity Details Follow Up prn Reason: VITAL SIGNS Weight 105.6 lbs 2018-01-09 Temperature 98.0 degrees Fahrenheit 2018-01-09 Heart Rate 66 bpm 2018-01-09 Respiratory Rate 18 2018-01-09 Blood pressure systolic 102 mmHg 2018-01-09 Blood pressure diastolic 64 mmHg 2018-01-09 MEDICATIONS Medication Instructions Dosage Frequency Start Date End Date Duration Status Protonix 40 MG Orally Once a day 1 tablet 24h Active Bactrim DS 800-160 MG Orally twice daily 1 tablet Dec, Dec, 10 day(s) Active Acyclovir 800 MG Orally Five times a day 1 tablet Dec, 7 days Active Estrogel 0.75 MG/1.25 GM (0.06%) Transdermal Once a day 1 application to skin 24h Active RESULTS No Results PROCEDURES No Known procedures INSTRUCTIONS MEDICATIONS ADMINISTERED No Known Medications MEDICAL (GENERAL) HISTORY Type Description Date Surgical History hysterectomy
--- OUTSIDE RECORDS SUMMARY | 2018-09-21 23:59 | XMS REPORT ---
Author Author ALICIA HOLM Organization [facility] Address [address] [place] [address] Care Team Providers Care City Designer Name Role Phone ALICIA HOLM Unavailable PROBLEMS Type Condition ICD9-CM Code QMX16-PZ Code Onset Dates Condition Status SNOMED Code Problem Urinary tract infection, site not specified 599.0 Active 82264275 ALLERGIES No Information ENCOUNTERS Encounter Location Date Diagnosis [facility] [id number] [place] [phone] Dec, [facility] [address] [address] Dec, Herpes zoster without complication B02.9 [facility] [id number] [place] [address] Dec, [facility] [address] [address] Dec, Acute folliculitis L73.9 [facility] [id number] [place] [address] Aug, [facility] [id number] [place] [address] Dec, [facility] [id number] [place] [address] Dec, [facility] [address] [address] May, [facility] [id number] [place] [address] May, [facility] [address] [address] Jul, [facility] [address] [facility] [id number] [place] [address] Jul, IMMUNIZATIONS No Known Immunizations SOCIAL HISTORY Never Assessed REASON FOR VISIT PLAN OF CARE VITAL SIGNS MEDICATIONS Unknown Medications RESULTS No Results PROCEDURES No Known procedures INSTRUCTIONS MEDICATIONS ADMINISTERED No Known Medications MEDICAL (GENERAL) HISTORY Type Description Date Surgical History hysterectomy
--- OUTSIDE RECORDS SUMMARY | 2018-09-21 23:59 | XMS REPORT ---
Author Author ALICIA HOLM Organization [facility] Address [address] [place] [address] Care Team Providers Care Ssis Architect Name Role Phone ALICIA HOLM Unavailable PROBLEMS Type Condition ICD9-CM Code KGH79-SG Code Onset Dates Condition Status SNOMED Code Problem Urinary tract infection, site not specified 599.0 Active 59512904 ALLERGIES No Information ENCOUNTERS Encounter Location Date Diagnosis [facility] [id number] [place] [address] Dec, [facility] [address] [address] Dec, Herpes zoster without complication B02.9 [facility] [id number] [place] [address] Dec, [facility] [address] [address] Dec, Acute folliculitis L73.9 [facility] [id number] [place] [address] Aug, [facility] [id number] [place] [address] Dec, [facility] [id number] [place] [address] Dec, [facility] [address] [address] May, [facility] [id number] [place] [address] May, [facility] [address] [address] Jul, [facility] [address] [facility] [id number] [place] [address] Jul, IMMUNIZATIONS No Known Immunizations SOCIAL HISTORY Never Assessed REASON FOR VISIT Requests return call PLAN OF CARE VITAL SIGNS MEDICATIONS Unknown Medications RESULTS No Results PROCEDURES No Known procedures INSTRUCTIONS MEDICATIONS ADMINISTERED No Known Medications MEDICAL (GENERAL) HISTORY Type Description Date Surgical History hysterectomy
--- OUTSIDE RECORDS SUMMARY | 2018-09-22 00:02 | XMS REPORT | Continuity of Care Document ---
Author Author [facility] of [facility] of [facility] Address Unknown Phone Unavailable Allergies Active Description Code Type Severity Reaction Onset Reported/Identified Relationship to Patient Clinical Status Yes No Known Drug Allergies [id number] Drug Allergy Unknown N/A 01/10/2017 Medications There [...] KASH GUADALUPE DO Ot 575.8 08/26/2014 BERNARD MCNEILL, TEO [place] Ot 789.06 08/31/2014 KASH GUADALUPE [...] Ot R11.2 NAUSEA WITH VOMITING, UNSPECIFIED 05/24/2016 AUGUSTA AYON DO Ot K52.9 NONINFECTIVE GASTROENTERITIS AND COLITIS 05/24/2016 AUGUSTA AYON DO Ot R11.2 NAUSEA WITH VOMITING, UNSPECIFIED 08/16/2016 ALIYA ELY APRN Ot M54.5 LOW BACK PAIN 08/16/2016 ALIYA ELY APRN Ot N83.201 UNSPECIFIED OVARIAN CYST, RIGHT SIDE 08/16/2016 ALIYA ELY SUPERVISOR MICROWAVE Ot N83.202 UNSPECIFIED OVARIAN CYST, LEFT SIDE 08/18/2016 SHELLY ESTHELA BONILLA Ot M54.5 LOW BACK PAIN 08/18/2016 SHELLY DOESTHELA Ot R10.31 RIGHT LOWER QUADRANT PAIN 08/18/2016 SHELLY DOESTHELA Ot R10.32 LEFT LOWER QUADRANT PAIN 08/18/2016 ALIYA ELY APRN Ot M54.5 LOW BACK PAIN 08/18/2016 ALIYA ELY SUPERVISOR MICROWAVE Ot N83.201 UNSPECIFIED OVARIAN CYST, RIGHT SIDE 08/18/2016 ALIYA ELY SUPERVISOR MICROWAVE Ot N83.202 UNSPECIFIED OVARIAN CYST, LEFT SIDE 12/01/2016 KASH GUADALUPE DO Ot K21.9 GASTRO-ESOPHAGEAL REFLUX DISEASE WITHOUT 12/01/2016 GUADALUPEKASH HANNAH DO Ot K92.1 MELENA 12/01/2016 KASH GUADALUPE DO Ot Z01.818 ENCOUNTER FOR OTHER PREPROCEDURAL EXAMIN 12/01/2016 KASH GUADALUPE DO Ot K21.9 GASTRO-ESOPHAGEAL [...] (ABN) FINDINGS ON RADIOLOGICAL OT 01/10/2017 KASH GUADALPUE DO Ot 575.8 DIS OF GALLBLADDER NEC [...] NAUSEA WITH VOMITING 05/21/2017 BERNARD MCNEILL, TEO Ovieod Ot 789.01 ABDOMINAL PAIN, RIGHT UPPER QUADRANT 05/21/2017 TEO WAGNER MD Ot 789.06 ABDOMINAL PAIN, EPIGASTRIC 05/21/2017 TEO WAGNER MD Ot 787.01 NAUSEA WITH VOMITING 05/21/2017 TEO WAGNER MD Ot 789.01 ABDOMINAL PAIN, RIGHT UPPER QUADRANT 05/21/2017 TEO WAGNER MD Ot 789.06 ABDOMINAL PAIN, EPIGASTRIC 05/21/2017 GELY MORENO MD Ot 787.02 NAUSEA ALONE 05/21/2017 GELY MORENO [...] V74.8 SCREEN-BACTERIAL DIS NEC 06/14/2017 TAMMY FRANCO MD Ot Z12.31 ENCNTR SCREEN MAMMOGRAM FOR MALIGNANT NE 07/04/2017 TAMMY FRANCO MD, Ot N70.11 CHRONIC SALPINGITIS 07/04/2017 TAMMY FRANCO MD Ot N73.6 FEMALE PELVIC PERITONEAL ADHESIONS (POST 07/04/2017 TAMMY FRANCO MD, Ot N80.2 ENDOMETRIOSIS OF FALLOPIAN TUBE 07/04/2017 TAMMY FRANCO MD, Ot N83.12 CORPUS LUTEUM CYST OF LEFT OVARY 07/04/2017 TAMMY FRANCO MD, Ot N92.0 EXCESSIVE AND FREQUENT MENSTRUATION WITH 07/04/2017 TAMMY FRANCO MD, Ot N93.8 OTHER SPECIFIED ABNORMAL UTERINE AND VAG 01/10/2018 ALIYA ELY APRN Ot B02.9 ZOSTER WITHOUT COMPLICATIONS 01/10/2018 ALIYA ELY APRN Ot F41.9 ANXIETY DISORDER, UNSPECIFIED 01/10/2018 ALIYA ELY APRN Ot G43.909 MIGRAINE, UNSP, NOT INTRACTABLE, WITHOUT 01/10/2018 ALIYA ELY APRN Ot K21.9 GASTRO-ESOPHAGEAL REFLUX DISEASE WITHOUT 01/10/2018 ALIYA ELY APRN Ot L02.31 CUTANEOUS ABSCESS OF BUTTOCK 01/10/2018 ALIYA ELY APRN Ot Z86.19 PERSONAL HISTORY OF OTHER INFECTIOUS AND 01/10/2018 ALIYA ELY APRN Ot Z87.19 PERSONAL HISTORY OF OTHER DISEASES OF TH 01/10/2018 ALIYA ELY APRN Ot Z87.448 PERSONAL HISTORY OF OTHER DISEASES OF UR 01/10/2018 ALIYA ELY APRN Ot Z87.59 PERSONAL HISTORY OF COMP OF PREG, CHLDBR 01/10/2018 ALIYA ELY APRN Ot Z90.49 ACQUIRED ABSENCE OF OTHER SPECIFIED PART 01/11/2018 RANDOLPH LARA MD, Ot F41.9 ANXIETY DISORDER, UNSPECIFIED 01/11/2018 RANDOLPH LARA MD, Ot G43.909 MIGRAINE, UNSP, NOT INTRACTABLE, WITHOUT 01/11/2018 RANDOLPH LARA MD Ot K21.9 GASTRO-ESOPHAGEAL REFLUX DISEASE WITHOUT 01/11/2018 RANDOLPH LARA MD Ot L02.31 CUTANEOUS ABSCESS OF BUTTOCK 01/11/2018 RANDOLPH LARA MD Ot Z87.19 PERSONAL HISTORY OF OTHER DISEASES OF TH 01/11/2018 RANDOLPH LARA MD Ot Z87.448 PERSONAL HISTORY OF OTHER DISEASES OF UR 01/11/2018 RANDOLPH LARA MD Ot Z87.59 PERSONAL HISTORY OF COMP OF PREG, CHLDBR 01/11/2018 RANDOLPH LARA MD Ot Z90.49 ACQUIRED ABSENCE OF OTHER SPECIFIED PART 01/11/2018 RANDOLPH LARA MD Ot Z90.710 ACQUIRED ABSENCE OF BOTH CERVIX AND UTER 01/14/2018 ALIYA ELY APRN Ot B02.9 ZOSTER WITHOUT COMPLICATIONS 01/14/2018 ALIYA ELY APRN Ot F41.9 ANXIETY DISORDER, UNSPECIFIED 01/14/2018 ALIYA ELY APRN Ot G43.909 MIGRAINE, UNSP, NOT INTRACTABLE, WITHOUT 01/14/2018 ALIYA ELY APRN Ot K21.9 GASTRO-ESOPHAGEAL REFLUX DISEASE WITHOUT 01/14/2018 ALIYA ELY APRN Ot L02.31 CUTANEOUS ABSCESS OF BUTTOCK 01/14/2018 ALIYA ELY APRN Ot Z86.19 PERSONAL HISTORY OF OTHER INFECTIOUS AND 01/14/2018 ALIYA ELY APRN Ot Z87.19 PERSONAL HISTORY OF OTHER DISEASES OF TH 01/14/2018 ALIYA ELY APRN Ot Z87.448 PERSONAL HISTORY OF OTHER DISEASES OF UR 01/14/2018 ALIYA ELY APRN Ot Z87.59 PERSONAL HISTORY OF COMP OF PREG, CHLDBR 01/14/2018 ALIYA ELY APRN Ot Z90.49 ACQUIRED ABSENCE OF OTHER SPECIFIED PART 01/14/2018 RANDOLPH LARA MD, Ot F41.9 ANXIETY DISORDER, UNSPECIFIED 01/14/2018 RANDOLPH LARA MD, Ot G43.909 MIGRAINE, UNSP, NOT INTRACTABLE, WITHOUT 01/14/2018 RANDOLPH LARA MD, Ot K21.9 GASTRO-ESOPHAGEAL REFLUX DISEASE WITHOUT 01/14/2018 RANDOLPH LARA MD, Ot L02.31 CUTANEOUS ABSCESS OF BUTTOCK 01/14/2018 RANDOLPH LARA MD, Ot Z87.19 PERSONAL HISTORY OF OTHER DISEASES OF TH 01/14/2018 RANDOLPH LARA MD, Ot Z87.448 PERSONAL HISTORY OF OTHER DISEASES OF UR 01/14/2018 RANDOLPH LARA MD, Ot Z87.59 PERSONAL HISTORY OF COMP OF PREG, CHLDBR 01/14/2018 RANDOLPH LARA MD, Ot Z90.49 ACQUIRED ABSENCE OF OTHER SPECIFIED PART 01/14/2018 RANDOLPH LARA MD, Ot Z90.710 ACQUIRED ABSENCE OF BOTH CERVIX AND UTER 02/14/2018 PAT MILES APRN Ot R05 COUGH 02/26/2018 PAT MILES APRN Ot R05 COUGH Procedures Code Description Performed By Performed On 72.9 INSTRUMENT DELIVERY NOS 10/16/2010 74.1 LOW CERVICAL 10/16/2010 99.77 APPL/ADMIN OF AN ADHESION BARRIER SUBSTA 10/16/2010 53228 UA W/ CULTURE IF INDICATED 06/20/2014 Results [...] culture NO NRG Comprehensive metabolic panel - 05/21/16 21:24 Serum [...] 14:25 Bacteria identification in wound by culture [id number] NRG FREE TEXT EXTERNAL SENSITIVITY REPORTED 01/11 16:25 NRG QUANTITY OF GROWTH Moderate Growth NRG Bacterial susceptibility panel - 01/10/18 14:25 Oxacillin susceptibility test by minimum inhibitory concentration > = NRG Gentamicin susceptibility test by minimum inhibitory concentration < = NRG Clindamycin susceptibility test by minimum inhibitory concentration <= NRG Erythromycin susceptibility test by minimum inhibitory concentration >= NRG Trimethoprim/sulfamethoxazole susceptibility test by minimum inhibitoryconcentration R NRG Vancomycin susceptibility test by minimum inhibitory concentration < = NRG Levofloxacin susceptibility test by minimum inhibitory concentration 4 NRG Rifampin susceptibility test by minimum inhibitory concentration <= NRG Tetracycline susceptibility test by minimum inhibitory concentration <= NRG Ciprofloxacin susceptibility test by minimum inhibitory concentration R NRG Encounters ACCT No. Visit Date/Time Discharge Status Pt. Type Provider Facility Loc./Unit Complaint [id number] 06/20/2014 10:54:00 06/20/2014 23:59:59 CLS Outpatient ALLY BONILLA MAE Olivia [id number] 05/28/2013 12:58:00 05/28/2013 23:59:59 CLS Outpatient MAGY JACKSON DDS [id number] 08/20/2018 11:20:00 08/20/2018 23:59:59 CLS Outpatient YEIMY MERAZ LAC [facility] [id number] 01/15/2018 12:33:09 01/15/2018 23:59:59 CLS Outpatient [id number] 08/18/2014 07:45:19 ACT Document Registration [id number] 02/13/2018 15:44:00 02/13/2018 23:59:59 CLS Outpatient PAT MILES APRN [facility] RAD ONGOING COUGH [id number] 01/11/2018 08:20:00 01/11/2018 09:43:00 DIS Emergency RANDOLPH LARA MD [facility] ER ABSCESS ON REAR END [id number] 01/10/2018 14:01:00 01/10/2018 14:49:00 DIS Emergency ALIYA ELY APRN [facility] ER ABSCESS ON REAREND [id number] 07/06/2017 13:00:00 07/06/2017 23:59:59 CLS Preadmit TAMMY FRANCO MD [facility] CHRONIC PELVIC PAIN; ENDOMETRIOSIS; DUB [id number] 07/02/2017 12:00:00 07/02/2017 23:59:59 CLS Preadmit TAMMY FRANCO MD [facility] PREOP CHRONIC PELVIC PAIN ;ENDOMETRIOSIS; DUB [id number] 05/29/2017 08:48:00 05/29/2017 23:59:59 CLS Outpatient TAMMY FRANCO MD [facility] RAD BASELINE [id number] 03/04/2017 04:50:00 03/04/2017 07:05:00 DIS Emergency RANDOLPH LARA MD [facility] ER VOMITING [id number] 01/12/2017 12:21:00 01/13/2017 17:15:00 DIS Outpatient TAMMY FRANCO MD [facility] ENDOMETRIOSIS, CHRONIC PELVIC PAIN [id number] 01/10/2017 15:36:00 01/10/2017 16:20:00 DIS Outpatient TAMMY FRANCO MD [facility] PREOP CPP,HX ENDOMETRIOSIS [id number] 12/05/2016 09:25:00 12/05/2016 12:00:00 DIS Outpatient KASH GUADALUPE DO [facility] ENDO BLOOD IN STOOL;REFLUX [id number] 12/01/2016 09:30:00 12/01/2016 10:06:00 DIS Outpatient KASH GUADALUPE DO [facility] PREOP BLOOD IN STOOL;REFLUX [id number] 08/17/2016 22:03:00 08/18/2016 00:42:00 DIS Emergency ESTHELA BRAVO DO [facility] ER AB AND BACK PAIN [id number] 08/16/2016 20:37:00 08/16/2016 23:18:00 DIS Emergency SOLISALIYA APRN [facility] ER BACK/STOMACH PAIN [id number] 05/21/2016 20:53:00 05/21/2016 23:45:00 DIS Emergency AUGUSTA AYON DO [facility] ER POSSIBLE DEHYDRATION [id number] 08/18/2014 07:35:00 08/18/2014 15:15:00 DIS Outpatient KASH GUADALUPE DO [facility] BILIARY DYSKINESA [id number] 08/11/2014 10:01:00 08/11/2014 23:59:59 CLS Outpatient KASH GUADALUPE DO [facility] PREOP BILIARY DYSKINESA [id number] 08/07/2014 11:49:00 08/07/2014 23:59:59 CLS Outpatient KASH GUADALUPE DO [facility] CARD EPIGASTRIC ABD PAIN [id number] 08/05/2014 13:20:00 08/05/2014 23:59:59 CLS Outpatient TEO WAGNER MD [facility] RAD ABDOMINAL PELVIC PAIN [id number] 07/22/2014 11:55:00 07/23/2014 08:40:00 DIS Outpatient TAMMY FRANCO MD [facility] CHRONIC PELVIC PAIN [id number] 07/16/2014 14:29:00 07/16/2014 23:59:59 CLS Outpatient TAMMY FRANCO MD [facility] PREOP CHRONIC PELVIC PAIN [id number] 07/10/2014 12:07:00 07/10/2014 23:59:59 CLS Outpatient GELY MORENO MD [facility] RAD NAUSEA EPIGASTRIC PAIN [id number] 01/27/2014 23:23:00 01/28/2014 00:15:00 DIS Emergency AUGUSTA AYON DO [facility] ER DENTAL PAIN [id number] 11/09/2013 07:46:00 11/09/2013 09:33:00 DIS Emergency SARAH MCNEILL, JONAS Hoyos [facility] ER DENTAL PAIN [id number] 09/19/2013 11:51:00 09/19/2013 23:59:59 CLS Outpatient TEO WAGNER MD [facility] RAD RUQ PAIN [id number] 08/27/2013 09:39:00 08/27/2013 23:59:59 CLS Outpatient TEO WAGNER MD [facility] RAD RUQ PAIN,VOMITING [id number] 08/19/2013 14:08:00 08/19/2013 16:45:00 DIS Outpatient KASH GUADALUPE DO [facility] SDC ABDOMINAL PAIN [id number] 08/14/2013 07:12:00 08/14/2013 23:59:59 CLS Outpatient KASH GUADALUPE DO [facility] PREOP ABDOMINAL PAIN [id number] 05/26/2013 20:30:00 05/27/2013 00:26:00 DIS Emergency JANNETH LI [facility] ER FACIAL/SINUS PAIN [id number] 02/10/2013 22:30:00 02/11/2013 00:44:00 DIS Emergency AUGUSTA AYON DO [facility] ER ABD PAIN [id number] 12/05/2016 09:26:00 Document Registration [id number] 12/05/2016 09:26:00 Document Registration [id number] 10/16/2010 07:15:00 Document Registration
--- NOTE | 2018-09-22 00:43 | ED GU-Female ---
General Chief Complaint: -Female Stated Complaint: YEAST INFECTION Nursing Triage Note: PT TO ED 9 W/ MOTHER FOR C/O VAGINAL ITCHING ONSET YESTERDAY, WORSE TONIGHT. REPORTS TOOK AMOXIL "A FEW DAYS AGO" FOR A POSSIBLE TOOTH INFECTION ET ITCHING STARTED AFTER THAT. ALSO REPORTS SHE DID TAKE A DIFLUCAN AND A TERGONAZOL CREAM FOR HER SYMPTOMS BUT DENIES IMPROVEMENT. PT DENIES VAGINAL DISCHARGE AT THIS TIME. NO OTHER C/O VOICED Nursing Sepsis Screen: No Definite Risk Source: patient, family Exam Limitations: no limitations History of Present Illness Date Seen by Provider: Sep 22, 2018 Time Seen by Provider: 00:30 Initial Comments The patient presents to ER by private conveyance with chief complaint of the last 2 days progressively worsening burning and itching without discharge and her Vulva. She says earlier in the week she finished some amoxicillin for a tooth and she thinks that every time this happens and supple with a yeast infection. She took a capsule of Diflucan 2 days ago which did not help so she' s been using terconazole anti-yeast cream with no relief of her symptoms. She is sexually active exclusively with men in a monogamous relationship. 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 She has had no fevers chills nausea vomiting or tachycardia. Allergies and Home Medications Allergies Coded Allergies: No Known Drug Allergies (Unverified , 01/10/17) Home Medications Clindamycin HCl 300 Mg Capsule, 300 MG PO QID, (Reported) Dicyclomine HCl 20 Mg Tablet, 20 MG PO Q6H PRN for ABDOMINAL PAIN Prescribed by: RANDOLPH LARA on 03/04/17 0658 Hydrocodone/Acetaminophen 1 Each Tablet, 1 EACH PO Q4H PRN for PAIN-MODERATE TO SEVERE Prescribed by: ALIYA ELY on 01/10/18 1415 Mupirocin 22 Gm Oint...g., 1 GM TP TID Prescribed by: RANDOLPH LARA on 01/11/18 0919 Norethindrone 0.35 Mg Tablet, 0.35 MG PO DAILY, (Reported) Ondansetron 8 Mg Tab.rapdis, 8 MG PO PD PRN for q4h Prescribed by: TAMMY BREEN on 01/12/17 1423 Oxycodone HCl/Acetaminophen 1 Each Tablet, 1-2 TAB PO Q4H PRN for PAIN Prescribed by: TAMMY BREEN on 01/12/17 1423 Pantoprazole Sodium 40 Mg Tablet., 40 MG PO DAILY, (Reported) Patient Home Medication List Home Medication List Reviewed: Yes Review of Systems Review of Systems Constitutional: No chills, No diaphoresis EENTM: No ear discharge, No hearing loss, No ear pain Respiratory: No cough, No short of breath Cardiovascular: No chest pain, No edema Gastrointestinal: No abdominal pain, No constipation, No diarrhea Genitourinary: burning; denies discharge, denies dysuria : No Musculoskeletal: No back pain, No joint pain Past Uivzkxk-Kvlfck-Rlrunx Hx Patient Social History Alcohol Use: Denies Use Recreational Drug Use: No Smoking Status: Never a Smoker 2nd Hand Smoke Exposure: No Recent Foreign Travel: No Contact w/Someone Who Travel: No Recent Infectious Disease Expo: No Recent Hopitalizations: No Physical Abuse: No Sexual Abuse: No Mistreated: No Fear: No Immunizations Up To Date Tetanus Booster (TDap): Less than 5yrs PED Vaccines UTD: Yes Date of Influenza Vaccine: Jul 22, 2014 Seasonal Allergies Seasonal Allergies: No Past Medical History Surgeries: Yes (ECTOPIC REMOVED, C/S X2, DX LAPAROSCOPY, SALPINGECTOMY) Appendectomy, Section, Gallbladder, Hysterectomy Respiratory: No Cardiac: Yes (HX. OF MURMUR ; BORN WITH MURMUR) Heart Murmur Neurological: Yes Headaches /Migraines : No Reproductive Disorders: Yes (CPP, ENOMETRIOSIS) Female Reproductive Disorders: Endometriosis, Ovarian Cyst AUTOMATION ENGINEERING TECHNICIAN History: Hysterectomy Sexually Transmitted Disease: Yes (HPV) Genitourinary: No Gastrointestinal: Yes Gastroesophageal Reflux, Ulcer Musculoskeletal: Yes (FROM ENDOMETRIOSIS) Chronic Back Pain Endocrine: Yes (BOARDERLINE) HEENT: No Loss of Vision: Bilateral Hearing Impairment: Denies Cancer: No Psychosocial: Yes Anxiety Integumentary: No Blood Disorders: No Adverse Reaction/Blood Tranf: No (N/A) Family Medical History No Pertinent Family Hx Physical Exam Vital Signs Vital Signs - First Documented 09/22/18 00:05 Temp 97.5 Pulse 62 Resp 16 B/P (MAP) 125/77 (93) Pulse Ox 99 O2 Delivery Room Air Capillary Refill : Less Than 3 Seconds Height, Weight, BMI Height: 4'11.00" Weight: 105lbs. 0.0oz. 47.580062my; 22.6 BMI Method:Stated General Appearance: WD/WN, no apparent distress HEENT: PERRL/EOMI, pharynx normal Gastrointestinal: normal bowel sounds, non tender, soft Pelvic: normal external exam, no cerv. motion tender, no masses, other (modest amount of thin white physiologic appearing vaginal secretions. 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020 1.016-1.022 Urine Protein NEGATIVE NEGATIVE Urine Glucose (UA) NEGATIVE NEGATIVE Urine Ketones NEGATIVE NEGATIVE Urine Nitrite NEGATIVE NEGATIVE Urine Bilirubin NEGATIVE NEGATIVE Urine Urobilinogen NORMAL NORMAL MG/DL Urine Leukocyte Esterase 3+ H NEGATIVE Urine RBC (Auto) NEGATIVE NEGATIVE Urine RBC NONE /HPF Urine WBC 0-2 /HPF Urine Squamous Epithelial Cells 10-25 H /HPF Urine Crystals NONE /LPF Urine Bacteria MODERATE H /HPF Urine Casts NONE /LPF Urine Mucus NEGATIVE /LPF Urine Culture Indicated YES Urine Test NEGATIVE NEGATIVE My Orders Orders - SAPNA IVAN Neisseria Gonorrhea Swab (09/22/18 00:40) Chlamydia Trachomatis Swab (09/22/18 00:40) Wet Prep (09/22/18 00:40) Ua Culture If Indicated (09/22/18 00:44) Hcg,Qualitative Urine (09/22/18 00:44) Urine Culture (09/22/18 01:32) Vital Signs/I&O 09/22/18 00:05 Temp 97.5 Pulse 62 Resp 16 B/P (MAP) 125/77 (93) Pulse Ox 99 O2 Delivery Room Air Capillary Refill : Less Than 3 Seconds Blood Pressure Mean: 93 Progress Note : Time: 01:55 Progress Note She mandated had a yeast infection secondary to her recent antibiotics and has a reticulocyte with the Diflucan and apical creams so were going to have her stop using the creams and try some Vistaril/loratadine and follow up with OB/ AUTOMATION ENGINEERING TECHNICIAN as necessary. Departure Impression Primary Impression: Vulvar discomfort Disposition: HOME, SELF-CARE Condition: Stable Departure-Patient Inst. Decision time for Depature: 01:57 Referrals: IVETTE MATOS MD (PCP/Family) Primary Care Physician Patient Instructions: Vulvar Itching Add. Discharge Instructions: Discontinue the use of topical creams. For itching or burning you can use the Vistaril 1 tablet every 6 hours as needed. You can also try [id number] loratadine for its anti-itching properties; 10 mg daily. Follow-up with either primary care or CLINICAL TRIALS NURSE. All discharge instructions reviewed with patient and/or family. Voiced understanding. Scripts Hydroxyzine Pamoate (Vistaril) 25 Mg Capsule 25 MG PO Q6H PRN for ITCHING, #20 CAP 0 Refills Prov: SAPNA IVAN 09/22/18 SAPNA IVAN Sep 22, 2018 00:43
[2018-09-22 01:40] LABS: BILIRUBIN,URINE NEGATIVE (NEGATIVE); CLARITY,URINE CLEAR; COLOR,URINE YELLOW; GLUCOSE, URINE (UA) NEGATIVE (NEGATIVE); KETONES,URINE NEGATIVE (NEGATIVE); LEUKOCYTE ESTERASE ,URINE 3+ (NEGATIVE); NITRITE,URINE NEGATIVE (NEGATIVE); PH,URINE 6.5 (5-9); PROTEIN,URINE NEGATIVE (NEGATIVE); UROBILINOGEN,URINE NORMAL (NORMAL)
[2018-09-22 01:50] LABS: BACTERIA,URINE MODERATE /HPF; WBC,URINE 0-2 /HPF
[2018-09-22] MEDS ORDERED: HYDR25CA PO (01:59)
[2018-09-22 02:05] VITALS: BP 125/77
== END 2018-09-22 02:05 | disposition home or self-care (01) ==
LOC: EDUNIT# 23:34 → ER 23:36
DX: N94.819 Vulvodynia, unspecified (principal); G43.909 Migraine, unspecified, not intractable, without status migrainosus; K21.9 Gastro-esophageal reflux disease without esophagitis; F41.9 Anxiety disorder, unspecified; Z87.19 Personal history of other diseases of the digestive system; Z86.19 Personal history of other infectious and parasitic diseases; Z87.448 Personal history of other diseases of urinary system; Z98.890 Other specified postprocedural states; Z90.49 Acquired absence of other specified parts of digestive tract; Z90.710 Acquired absence of both cervix and uterus
CPT/HCPCS: 36415; 81000; 84703; 87088; 87210; 87491; 87591; 99284

== ENCOUNTER → 2019-02-06 | Outpatient (CLI) | payer BC, MEDICAID ==
[~2019-02-06] MED LIST changes: +HOLD METFORMIN - RECEIVED CONTRAST 20 ML VIAL IV SCH; +HYDR25CA PO; +IOHEXOL 350 MG/ML 100 ML (OMNIPAQUE 350) VIAL IV ONE; +NS 100 ML (IVPB) BAG IV ONE
--- NOTE | 2019-02-06 09:06 | Diagnostic Imaging Report ---
PROCEDURE: CT abdomen and pelvis with contrast. TECHNIQUE: Multiple contiguous axial images were obtained through the abdomen and pelvis after administration of intravenous contrast. Auto Exposure Controls were utilized during the CT exam to meet ALARA standards for radiation dose reduction. INDICATION: Mid and upper abdominal pain for 2 weeks. Correlation is made with prior CT from 08/17/2016. FINDINGS: Lung bases are clear. Liver is unremarkable. Gallbladder is surgically absent. No biliary ductal dilatation is seen. Pancreas and spleen are unremarkable. No adrenal mass is detected. Kidneys are unremarkable. Aorta is nonaneurysmal. Small and large bowel loops are normal caliber. There is no obstruction. There is no ascites. Bladder is unremarkable. Bony structures are nonacute. IMPRESSION: Unremarkable CT of abdomen and pelvis. No acute feature is detected. Dictated by: Dictated on workstation # [id number]
== END ==
LOC: RAD 07:40
PROVIDERS: ATTEND Nurse Practitioner Family
DX: R10.10 Upper abdominal pain, unspecified (principal); Z90.49 Acquired absence of other specified parts of digestive tract
CPT/HCPCS: 74177

== ENCOUNTER 2019-03-25 05:36 | Outpatient (CLI) | payer BC ==
[~2019-03-25] VITALS: Ht 149.9 cm; Wt 50.3 kg
[~2019-03-25 05:36] MED LIST changes: -HOLD METFORMIN - RECEIVED CONTRAST 20 ML VIAL IV SCH; -IOHEXOL 350 MG/ML 100 ML (OMNIPAQUE 350) VIAL IV ONE; -NS 100 ML (IVPB) BAG IV ONE
[2019-03-25] MEDS ORDERED: ESTR-44 TOP (15:22)
== END 2019-03-25 15:24 | disposition home or self-care (01) ==
LOC: PREOP 05:36
PROVIDERS: ATTEND Surgery
DX: Z01.818 Encounter for other preprocedural examination (principal)

== ENCOUNTER 2019-04-01 12:17 | Day surgery (SDC) | payer BC ==
[~2019-04-01] VITALS: Ht 149.9 cm; Wt 50.3 kg
[~2019-04-01 12:17] MED LIST changes: +ESTR-44 TOP
[2019-04-01] MEDS ORDERED: LACTATED RINGERS 1,000 ML IV ONE (12:20)
--- OUTSIDE RECORDS SUMMARY | 2019-04-01 12:22 | XMS REPORT | CCD ---
Author Author [facility] Address [address] [place] [address] Phone Care Team Providers Care Sanitation Worker Cleaning Equipment Name Role Phone PP Unavailable CCM Unavailable Summary Purpose Interface Exchange Insurance Providers Payer name Policy type / Coverage type Covered republican ID Effective Begin Date Effective End Date Blue Cross Blue [facility] Blue Cross/Blue [facility] [id number] 2018 Unknown Family history Mother Diagnosis Age At Onset [...] Codes Condition Status Onset Date Resolved Date Epigastric pain ICD-9: 789.06 ICD-10: R10.13 Active 01/28/2019 Unknown Gastro-esophageal reflux disease without esophagitis ICD-9: 530.81 ICD-10: K21.9 Active 03/11/2018 Unknown Acute laryngopharyngitis ICD-9: 465.0 ICD-10: J06.0 Active 11/27/2018 Unknown Other allergic rhinitis ICD-9: 477.8 ICD-10: J30.89 Active 11/27/2018 Unknown Cough ICD-9: 786.2 ICD-10: R05 Active 03/11/2018 Unknown Follicular disorder, unspecified ICD-9: 704.8 ICD-10: L73.9 Active 01/28/2018 Unknown Rash and other nonspecific skin eruption ICD-9: 782.1 ICD-10: R21 Active 01/28/2018 Unknown Cutaneous abscess of buttock ICD-9: 682.5 ICD-10: L02.31 Active 01/17/2018 Unknown Zoster without complications ICD-9: 053.9 ICD-10: B02.9 Active 01/17/2018 Unknown Problems Condition Codes Effective Dates Condition Status Epigastric pain ICD-9: 789.06 ICD-10: R10.13 01/28/2019 Active Gastro-esophageal reflux disease without esophagitis ICD-9: 530.81 ICD-10: K21.9 03/11/2018 Active Acute laryngopharyngitis ICD-9: 465.0 ICD-10: J06.0 11/27/2018 Active Other allergic rhinitis ICD-9: 477.8 ICD-10: J30.89 11/27/2018 Active Cough ICD-9: 786.2 ICD-10: R05 03/11/2018 Active Follicular disorder, unspecified ICD-9: 704.8 ICD-10: L73.9 01/28/2018 Active Rash and other nonspecific skin eruption ICD-9: 782.1 ICD-10: R21 01/28/2018 Active Cutaneous abscess of buttock ICD-9: 682.5 ICD-10: L02.31 01/17/2018 Active Zoster without complications ICD-9: 053.9 ICD-10: B02.9 01/17/2018 Active Medications Medication Codes Instructions Start Date Stop Date Status Fill Instructions Flagyl 500 mg tablet RxNorm: 408045 1 Tablet(s) PO BID 03/17/2019 03/23/2019 Active Flagyl 500 mg tablet RxNorm: 102225 1 Tablet(s) PO BID 03/17/2019 03/16/2019 Inactive Flonase Allergy Relief 50 mcg/actuation nasal spray,suspension RxNorm: 3631608 1-2 [place] NASAL daily 01/06/2019 No Stop Date Active Zithromax Z-William 250 mg tablet RxNorm: 204238 1 Tablet(s) PO UD 01/06/2019 01/05/2019 Inactive zpack as directed Zithromax Z-William 250 mg tablet RxNorm: 940708 1 Tablet(s) PO UD 01/06/2019 01/10/2019 Inactive zpack as directed Xofluza 40 mg tablet RxNorm: 6636734 1 Tablet(s) PO once 11/27/2018 01/05/2019 Inactive Diflucan 150 mg tablet RxNorm: 909677 1 Tablet(s) PO daily 11/27/2018 12/01/2018 Inactive amoxicillin 500 mg capsule RxNorm: 148519 1 Capsule(s) PO TID 11/27/2018 12/03/2018 Inactive Kenalog 40 mg/mL suspension for injection RxNorm: 6549974 Milliliter(s) Inj 11/27/2018 11/27/2018 Inactive acyclovir 400 mg tablet RxNorm: 854116 2 Tablet(s) PO QID 11/22/2018 11/21/2018 Inactive acyclovir 400 mg tablet RxNorm: 593821 2 Tablet(s) PO QID 11/22/2018 12/01/2018 Inactive Diflucan 150 mg tablet RxNorm: 340824 TAKE ONE TABLET BY MOUTH DAILY 10/04/2018 10/07/2018 Inactive Patient should contact Prescriber first promethazine 25 mg tablet RxNorm: 956894 1 Tablet(s) PO TID as needed 07/31/2018 No Stop Date Active Zofran ODT 4 mg disintegrating tablet RxNorm: 906803 1 Tablet(s) PO Q6 as needed 07/30/2018 09/27/2018 Inactive Zofran ODT 4 mg disintegrating tablet RxNorm: 861254 1 Tablet(s) PO Q6 as needed 07/30/2018 07/29/2018 Inactive Diflucan 150 mg tablet RxNorm: 655636 1 Tablet(s) PO daily 05/15/2018 05/21/2018 Inactive Protonix 40 mg tablet,delayed release RxNorm: 966520 1 Tablet(s) PO daily 03/21/2018 08/17/2018 Inactive Zofran 4 mg tablet RxNorm: 027532 1 Tablet(s) PO Q6 PRN 03/11/2018 07/29/2018 Inactive Carafate 1 gram tablet RxNorm: 807297 1 Tablet(s) PO AC & HS 03/11/2018 03/24/2018 Inactive prednisone 10 mg tablet RxNorm: 431034 Tablet(s) PO 01/30/2018 01/05/2019 Inactive 6,5,4,3,2,1 doxycycline hyclate 100 mg tablet RxNorm: 220759 1 Tablet(s) PO BID 01/28/2018 02/03/2018 Inactive Diflucan 150 mg tablet RxNorm: 203655 1 Tablet(s) PO daily 01/28/2018 02/03/2018 Inactive clindamycin HCl 300 mg capsule RxNorm: 259447 1 Capsule(s) PO TID 01/17/2018 01/19/2018 Inactive acyclovir 800 mg tablet RxNorm: 600451 1 Tablet(s) PO five times per day 5x daily 01/17/2018 01/27/2018 Inactive mupirocin 2 % topical ointment RxNorm: 322454 1 Application TOP BID 01/17/2018 01/26/2018 Inactive estradiol 0.1 mg/24 hr semiweekly transdermal patch RxNorm: 125276 1 Patch TD BIW No Start Date Active Flonase Allergy Relief 50 mcg/actuation nasal spray,suspension RxNorm: 0552891 1-2 [place] NASAL daily No Start Date 01/05/2019 Inactive Protonix 40 mg tablet,delayed release RxNorm: 023937 1 Tablet(s) PO daily No Start Date 03/20/2018 Inactive acyclovir 800 mg tablet RxNorm: 947443 1 Tablet(s) PO five times per day No Start Date 01/16/2018 Inactive clindamycin HCl oral RxNorm: 2582 oral No Start Date 01/27/2018 Inactive prednisone 10 mg tablet RxNorm: 686826 Tablet(s) PO No Start Date 01/29/2018 Inactive 6,5,4,3,2,1 promethazine 25 mg tablet RxNorm: 989499 1 Tablet(s) PO TID as needed No Start Date 07/30/2018 Inactive Medication Administered Medication Codes Instructions Start Date Status Kenalog 40 mg/mL suspension for injection RxNorm: 9788087 Milliliter 11/27/2018 No longer Active Immunizations Vaccine Codes Date Status Tetanus, Diptheria, Pertussis CVX: 113 04/24/2016 completed Tetanus/Diptheria CVX: 113 04/24/2016 completed Assessments Condition Codes Effective Dates Epigastric pain ICD-10: R10.13 ICD-9: 789.06 01/28/2019 Gastro-esophageal reflux disease without esophagitis ICD-10: K21.9 ICD-9: 530.81 01/28/2019 Acute laryngopharyngitis ICD-10: J06.0 ICD-9: 465.0 11/27/2018 Other allergic rhinitis ICD-10: J30.89 ICD-9: 477.8 11/27/2018 Cough ICD-10: R05 ICD-9: 786.2 03/11/2018 Rash and other nonspecific skin eruption ICD-10: R21 ICD-9: 782.1 01/28/2018 Follicular disorder, unspecified ICD-10: L73.9 ICD-9: 704.8 01/28/2018 Zoster without complications ICD-10: B02.9 ICD-9: 053.9 01/17/2018 Cutaneous abscess of buttock ICD-10: L02.31 ICD-9: 682.5 01/17/2018 Reason For Visit Reason For Visit Effective Dates Notes abdominal pain 01/28/2019 sinus congestion 11/27/2018 sinus congestion 03/11/2018 rash 01/28/2018 rash 01/17/2018 Results Observation Observation Code Item Item Code Result Date Influenza A+B [id number] Influ A+B Negative 11/27/2018 Review of Systems System Result Effective Dates Constitutional No recent illness 01/28/2019 Constitutional No anorexia 01/28/2019 Constitutional No night sweats 01/28/2019 Constitutional No chills 01/28/2019 Constitutional diaphoresis 01/28/2019 Constitutional No fatigue 01/28/2019 Constitutional No fever 01/28/2019 Constitutional No insomnia 01/28/2019 Constitutional No malaise 01/28/2019 Constitutional No weight loss 01/28/2019 Constitutional No weight gain 01/28/2019 Eyes No eye discharge 01/28/2019 Eyes No eye erythema 01/28/2019 Ears/Nose/Throat/Neck No dizziness 01/28/2019 Ears/Nose/Throat/Neck No headache 01/28/2019 Cardiovascular No chest pain/pressure 01/28/2019 Respiratory No cough 01/28/2019 Gastrointestinal abdominal pain 01/28/2019 Gastrointestinal No constipation 01/28/2019 Gastrointestinal No diarrhea 01/28/2019 Gastrointestinal No vomiting 01/28/2019 Gastrointestinal No nausea 01/28/2019 Genitourinary/Nephrology No dysuria 01/28/2019 Musculoskeletal No joint complaint 01/28/2019 Dermatologic No rash 01/28/2019 Neurologic No alteration of consciousness 01/28/2019 Constitutional recent illness 11/27/2018 Constitutional chills 11/27/2018 Constitutional No diaphoresis 11/27/2018 Constitutional fever 11/27/2018 Eyes No eye erythema 11/27/2018 Ears/Nose/Throat/Neck nasal allergies 11/27/2018 Ears/Nose/Throat/Neck nasal discharge 11/27/2018 Ears/Nose/Throat/Neck postnasal drip 11/27/2018 Ears/Nose/Throat/Neck sinus congestion 11/27/2018 Ears/Nose/Throat/Neck sore throat 11/27/2018 Cardiovascular No chest pain/pressure 11/27/2018 Cardiovascular No dyspnea 11/27/2018 Respiratory No chest congestion 11/27/2018 Respiratory cough 11/27/2018 Respiratory No dyspnea 11/27/2018 Gastrointestinal No constipation 11/27/2018 Gastrointestinal No diarrhea 11/27/2018 Gastrointestinal No nausea 11/27/2018 Gastrointestinal No vomiting 11/27/2018 Dermatologic No rash 11/27/2018 Neurologic No alteration of consciousness 11/27/2018 Neurologic No mental status change 11/27/2018 Constitutional recent illness 03/11/2018 Constitutional No anorexia 03/11/2018 Constitutional No night sweats 03/11/2018 Constitutional No chills 03/11/2018 Constitutional No diaphoresis 03/11/2018 Constitutional No fatigue 03/11/2018 Constitutional No fever 03/11/2018 Constitutional No insomnia 03/11/2018 Constitutional No malaise 03/11/2018 Constitutional No weight loss 03/11/2018 Constitutional No weight gain 03/11/2018 Eyes No eye discharge 03/11/2018 Eyes No eye erythema 03/11/2018 Ears/Nose/Throat/Neck No dizziness 03/11/2018 Cardiovascular No chest pain/pressure 03/11/2018 Cardiovascular No dyspnea 03/11/2018 Cardiovascular No edema 03/11/2018 Respiratory No productive sputum 03/11/2018 Respiratory No chest congestion 03/11/2018 Gastrointestinal No abdominal pain 03/11/2018 Gastrointestinal No constipation 03/11/2018 Gastrointestinal No diarrhea 03/11/2018 Gastrointestinal nausea 03/11/2018 Gastrointestinal No vomiting 03/11/2018 Genitourinary/Nephrology No dysuria 03/11/2018 Musculoskeletal No joint complaint 03/11/2018 Dermatologic No rash 03/11/2018 Dermatologic No sores 03/11/2018 Neurologic No alteration of consciousness 03/11/2018 Psychiatric No anxiety 03/11/2018 Endocrine No dry or coarse skin 03/11/2018 Respiratory cough 03/11/2018 Ears/Nose/Throat/Neck No nasal discharge 03/11/2018 Ears/Nose/Throat/Neck No otalgia 03/11/2018 Ears/Nose/Throat/Neck sinus congestion 03/11/2018 Ears/Nose/Throat/Neck No sore throat 03/11/2018 Gastrointestinal gastroesophageal reflux 03/11/2018 Constitutional No recent illness 01/28/2018 Constitutional No anorexia 01/28/2018 Constitutional No night sweats 01/28/2018 Constitutional No chills 01/28/2018 Constitutional No diaphoresis 01/28/2018 Constitutional No fatigue 01/28/2018 Constitutional No insomnia 01/28/2018 Constitutional No fever 01/28/2018 Constitutional No malaise 01/28/2018 Dermatologic rash 01/28/2018 Constitutional recent illness 01/17/2018 Constitutional No anorexia 01/17/2018 Constitutional No night sweats 01/17/2018 Constitutional No chills 01/17/2018 Constitutional No diaphoresis 01/17/2018 Constitutional No fatigue 01/17/2018 Constitutional No fever 01/17/2018 Constitutional No insomnia 01/17/2018 Constitutional No weight loss 01/17/2018 Constitutional No weight gain 01/17/2018 Constitutional No malaise 01/17/2018 Ears/Nose/Throat/Neck No dizziness 01/17/2018 Eyes No eye discharge 01/17/2018 Eyes No eye erythema 01/17/2018 Cardiovascular No chest pain/pressure 01/17/2018 Cardiovascular No dyspnea 01/17/2018 Cardiovascular No edema 01/17/2018 Respiratory No productive sputum 01/17/2018 Respiratory No chest congestion 01/17/2018 Gastrointestinal No abdominal pain 01/17/2018 Gastrointestinal No constipation 01/17/2018 Gastrointestinal diarrhea 01/17/2018 Gastrointestinal No vomiting 01/17/2018 Gastrointestinal No nausea 01/17/2018 Genitourinary/Nephrology No dysuria 01/17/2018 Musculoskeletal No joint complaint 01/17/2018 Dermatologic rash 01/17/2018 Dermatologic sores 01/17/2018 Neurologic No alteration of consciousness 01/17/2018 Psychiatric No anxiety 01/17/2018 Endocrine No dry or coarse skin 01/17/2018 Physical Exam Exam Name System Name Item Name Status Result Effective Dates Notes Full Exam - General 1994 Constitutional general appearance Overall: well developed 01/28/2019 None Full Exam - General 1994 Constitutional general appearance Overall: in no acute distress 01/28/2019 None Full Exam - General 1994 Constitutional general appearance Overall: well nourished 01/28/2019 None Full Exam - General 1994 Eyes conjunctiva/eyelids Overall: conjunctiva clear 01/28/2019 None Full Exam - General 1994 Eyes pupils and irises Overall: pupils equal, round, reactive to light and accomodation 01/28/2019 None Full Exam - General 1994 Ears/Nose/Throat otoscopic exam Overall: external auditory canals clear 01/28/2019 None Full Exam - General 1994 Ears/Nose/Throat otoscopic exam Overall: tympanic membranes clear 01/28/2019 None Full Exam - General 1994 Ears/Nose/Throat oral cavity/pharynx/larynx Overall: oral mucosa clear 01/28/2019 None Full Exam - General 1994 Respiratory auscultation Overall: breath sounds clear bilaterally 01/28/2019 None Full Exam - General 1994 Respiratory respiratory effort/rhythm Overall: no retractions 01/28/2019 None Full Exam - General 1994 Respiratory respiratory effort/rhythm Overall: normal rate 01/28/2019 None Full Exam - General 1994 Cardiovascular auscultation of heart Overall: regular rate 01/28/2019 None Full Exam - General 1994 Cardiovascular auscultation of heart Overall: normal heart sounds 01/28/2019 None Full Exam - General 1994 Cardiovascular auscultation of heart Overall: no murmurs 01/28/2019 None Full Exam - General 1994 Lymphatic neck nodes Overall: anterior cervical chain benign 01/28/2019 None Full Exam - General 1994 Lymphatic neck nodes Overall: posterior cervical chain benign 01/28/2019 None Full Exam - General 1994 Integument inspection of skin Overall: few scattered moles, no gross abnormalities 01/28/2019 None Full Exam - General 1994 Neurologic cranial nerves Overall: crainial nerves 2 - 12 grossly intact 01/28/2019 None Full Exam - General 1994 Psychiatric orientation/consciousness Overall: oriented to person, place and time 01/28/2019 None Full Exam - Cardiology Abdomen abdominal exam Overall: normal bowel sounds 01/28/2019 None Full Exam - Cardiology Abdomen abdominal exam Epigastric: tender to palpation 01/28/2019 None Full Exam - ENT Constitutional general appearance Overall: well nourished 11/27/2018 None Full Exam - ENT Constitutional general appearance Overall: well developed 11/27/2018 None Full Exam - ENT Constitutional general appearance Overall: in no acute distress 11/27/2018 None Full Exam - ENT Ears/Nose/Throat otoscopic exam Overall: external auditory canals normal 11/27/2018 None Full Exam - ENT Ears/Nose/Throat otoscopic exam Left tympanic membrane: air-fluid level 11/27/2018 None Full Exam - ENT Ears/Nose/Throat otoscopic exam Right tympanic membrane: air-fluid level 11/27/2018 None Full Exam - ENT Ears/Nose/Throat lips/teeth/gingiva Overall: benign lips 11/27/2018 None Full Exam - ENT Ears/Nose/Throat oropharynx Overall: oral mucosa clear 11/27/2018 None Full Exam - ENT Ears/Nose/Throat oropharynx Posterior Pharynx: clear post nasal drainage 11/27/2018 None Full Exam - ENT Ears/Nose/Throat oropharynx Posterior Pharynx: erythema 11/27/2018 None Full Exam - ENT Respiratory inspection Overall: no retractions 11/27/2018 None Full Exam - ENT Respiratory inspection Overall: normal rate 11/27/2018 None Full Exam - ENT Respiratory auscultation Overall: breath sounds clear bilaterally 11/27/2018 None Full Exam - ENT Cardiovascular auscultation of heart Rate: normal rate 11/27/2018 None Full Exam - ENT Cardiovascular auscultation of heart Rhythm: regular rhythm 11/27/2018 None Full Exam - ENT Lymphatic palpation of lymph nodes Overall: anterior cervical chain benign 11/27/2018 None Full Exam - ENT Lymphatic palpation of lymph nodes Overall: posterior cervical chain benign 11/27/2018 None Full Exam - ENT Neurologic mood and affect Overall: normal mood 11/27/2018 None Full Exam - ENT Neurologic mood and affect Overall: normal affect 11/27/2018 None Full Exam - ENT Neurologic orientation Overall: oriented to person, place and time 11/27/2018 None Full Exam - General 1994 Constitutional [...] None Full Exam - General 1994 Eyes conjunctiva/eyelids Overall: conjunctiva clear 03/11/2018 None Full Exam [...] Rash/Lesions: vesicle 01/17/2018 right middle back Procedures Procedure Codes Date TRIAMCINOLONE ACET INJ NOS CPT-4: J3301 11/27/2018 Vital Signs Date Vital 01/28/2019 Blood Pressure 1: 116/80 Code: 8480-6 BMI: 21.4 Code: 29538-0 Heart Rate 1: 82 bpm Height: 4'11" SpO2: 99% Weight: 106 lbs 11/27/2018 Blood Pressure 1: 120/82 Code: 8480-6 BMI: 22.0 Code: 64163-9 Heart Rate 1: 90 bpm Height: 4'11" SpO2: 99% Weight: 109 lbs 03/11/2018 Blood Pressure 1: 124/80 Code: 8480-6 BMI: 21.0 Code: 22499-6 Heart Rate 1: 66 bpm Height: 4'11" SpO2: 97% Temperature: 36.8 (C) / 98.3 (F) Weight: 104 lbs 01/28/2018 Height: Temperature: 36.7 (C) / 98.0 (F) Weight: 01/17/2018 Blood Pressure 1: 110/82 Code: 8480-6 BMI: 21.0 Code: 67441-1 Heart Rate 1: 66 bpm Height: 4'11" SpO2: 99% Temperature: 36.7 (C) / 98.1 (F) Weight: 104 lbs Functional Status No Functional Status data History of Present Illness Symptom Name Status Result Effective Date Notes Quality acute 01/28/2019 None Onset and Resolution sudden in onset 01/28/2019 None Onset of Symptom 4 days ago 01/28/2019 None Quality sharp 01/28/2019 None Quality cramping 01/28/2019 None Triggers no known associated factors 01/28/2019 None Location in the epigastric area 01/28/2019 None Frequency of Episodes daily 01/28/2019 None Quality intermittent 01/28/2019 None Pertinent Findings Denies nausea 01/28/2019 None Pertinent Findings Denies fever 01/28/2019 -Feels really hot at times though- thinks that it is hormone related Location frontal sinuses 11/27/2018 None Quality constant 11/27/2018 None Quality fullness 11/27/2018 None Quality pressure 11/27/2018 None Onset and Resolution sudden in onset 11/27/2018 None Onset of Symptom 2 days ago 11/27/2018 None Frequency of Episodes daily 11/27/2018 None Location diffusely 11/27/2018 None Quality aching 11/27/2018 None Quality constant 11/27/2018 None Onset and Resolution sudden in onset 11/27/2018 None Location in the throat 11/27/2018 None Quality constant 11/27/2018 None Quality hacking 11/27/2018 None Onset and Resolution sudden in onset 11/27/2018 None Quality constant 11/27/2018 None Onset and Resolution sudden in onset 11/27/2018 None Onset of Symptom 2 days ago 11/27/2018 None sinus congestion Onset and Resolution sudden in [...] the throat 03/11/2018 None cough Quality dry 03/11/2018 None cough Onset and Resolution ongoing 03/11/2018 None cough Pertinent Findings Denies chest discomfort 03/11/2018 None cough Pertinent Findings facial pain 03/11/2018 None cough Pertinent Findings heartburn 03/11/2018 None sinus congestion Severity mild 03/11/2018 None sinus congestion Triggers no known associated factors 03/11/2018 None rash Location-Major on the upper body 01/28/2018 None rash Quality acute 01/28/2018 None rash Color erythematous 01/28/2018 None rash [...] the back 01/17/2018 None rash Quality acute 01/17/2018 None rash Quality fading 01/17/2018 None rash Quality painful 01/17/2018 None rash Onset and Resolution sudden in onset 01/17/2018 None rash Alleviating Factors treatment medication 01/17/2018 (acyclovir) rash Pertinent Findings Denies fever 01/17/2018 None sores Location-Major on the lower body 01/17/2018 None sores Location-Trunk on the buttocks 01/17/2018 None sores Quality acute 01/17/2018 None sores Quality improving 01/17/2018 None sores Quality painful 01/17/2018 None sores Onset and Resolution sudden in onset 01/17/2018 None sores Alleviating Factors treatment medication 01/17/2018 (clindamycin) sores Pertinent Findings Denies fever 01/17/2018 None Advance Directives No Advance Directive data Encounters Encounter Performer Location Codes Date ([id number]) [id number] EST. PATIENT, LEVEL III Diagnosis: Epigastric pain[ICD10: R10.13] Diagnosis: Gastro-esophageal reflux disease without esophagitis[ICD10: K21.9] Rebeka Garcia MD, [facility] CPT-4: 10864 01/28/2019 [id number] EST. PATIENT, LEVEL III Diagnosis: Acute laryngopharyngitis[ICD10: J06.0] Diagnosis: Other allergic rhinitis[ICD10: J30.89] Darlene Garcia MD, [facility] CPT- 4: 10602 11/27/2018 ([id number]) 60403 EST. PATIENT, LEVEL III Diagnosis: Cough[ICD10: R05] Diagnosis: Gastro-esophageal reflux disease without esophagitis[ICD10: K21.9] Rebeka Garcia MD, [facility] CPT-4: 33421 03/11/2018 [id number] EST. PATIENT, LEVEL II Diagnosis: Follicular disorder, unspecified[ICD10: L73.9] Diagnosis: Rash and other nonspecific skin eruption[ICD10: R21] Rebeka Garcia MD, [facility] CPT-4: 30599 01/28/2018 OFFICE VISIT, NEW - LEVEL 3 Diagnosis: Zoster without complications[ICD10: B02.9] Diagnosis: Cutaneous abscess of buttock[ICD10: L02.31] Rebeka Garcia MD, [facility] CPT-4: 04312 01/17/2018 Plan of Care Planned Activity Notes Codes Status Date Appointment: Rebeka Burgos WPtel: [address] [place], [place] [phone] (30 min) Complex 02/14/2019 Visit Plan: Epigastric pain -esophageal Reflux - the patient has been counseled against excessive intake of caffeine, spicy foods, peppermint, and cinnamon - all of which can exacerbate esophageal reflux. The pa tient is to take medications as prescribed and call the office if the symptoms are not improving. 01/28/2019 Appointment: [phone] (30 min) Complex 01/28/2019 Patient Education: Patient Medication Summary Completed 01/28/2019 Visit Plan: URI - Pt advised to increase fluids, vitamin C. Discussed natural and expected course of this diagnosis and need to alert me if symptoms do not follow expected course, or if any worse. RX sent to patient's pharmacy. Allergies - chronic - recommended pt to use allergy medication as prescribed. Pt has been counseled as to the appropriate use of the medication. Pt to call if allergy symptoms are not controlled with the medication. If using nasal spray, instructions as follows: Nasal spray- use twice daily, one spray per nostril twice daily, after 30 minutes, rinse out nose with saline spray.. Use opposite hand per nostril to spray in the nasal steroid allergy spray. 11/27/2018 Appointment: Darlene Mosley WPtel: [phone] [id number] (30 min) Complex 11/27/2018 Appointment: Darlene Mosley WPtel: [address] [place], [place] [phone] (15 min) Moderate 11/27/2018 Patient Education: Patient Medication Summary Completed 11/27/2018 Appointment: Rebeka Burgos WPtel: [phone] (15 min) Moderate 08/01/2018 Visit Plan: Esophageal Reflux - the patient has been counseled against excessive intake of caffeine, spicy foods, peppermint, and cinnamon - all of which can exacerbate esophageal reflux. The patient is to take med ications as prescribed and call the office if the symptoms are not improving. 03/11/2018 Appointment: Rebeka Burgos WPtel: [address] [place], [place] [phone] (15 min) Moderate 03/11/2018 Patient Education: Patient Medication Summary Completed 03/11/2018 Visit Plan: Folliculitis-culture obtained today in the office- rx sent to patient's pharmacy and instructed on use-call if symptoms do not resolve 01/28/2018 Appointment: Rebeka Burgos WPtel: [phone] (15 min) Moderate 01/28/2018 Patient Education: Patient Medication Summary Completed 01/28/2018 Visit Plan: Shingles-continue acyclovir as directed-return if symptoms do not resolve as discussed Abscess of buttock-continue clindamycin- return if symptoms do not resolve completely 01/17/2018 Appointment: [facility]be[facility] Burgos [facility]Ptel[phone] [place] New Patient 01/17/2018 Patient Education: Patient Medication Summary Completed 01/17/2018 Instructions Comment . Folliculitis-culture obtained today in the office-rx sent to patient's pharmacy and instructed on use-call if symptoms do not resolve CARAFATE BEFORE MEALS AND BEDTIME ZANTAC IN THE MORNING PROTONIX AT BEDTIME . Epigastric pain -esophageal Reflux - the patient has been counseled against excessive intake of caffeine, spicy foods, peppermint, and cinnamon - all of which can exacerbate esophageal reflux. The patient is to take medications as prescribed and call the office if the symptoms are not improving. refill acyclovir x 3 more day refill clindamycin x 3 more days probiotic daily to help with diarrhea refill mupirocin ointment . Shingles-continue acyclovir as directed-return if symptoms do not resolve as discussed Abscess of buttock-continue clindamycin-return if symptoms do not resolve completely will send flu medicine will send amoxicillin will send diflucan that you can start after the amoxicillin if you need it steroid shot today. URI - Pt advised to increase fluids, vitamin C. Discussed natural and expected course of this diagnosis and need to alert me if symptoms do not follow expected course, or if any worse. RX sent to patient's pharmacy. Allergies - chronic - recommended pt to use allergy medication as prescribed. Pt has been counseled as to the appropriate use of the medication. Pt to call if allergy symptoms are not controlled with the medication. If using nasal spray, instructions as follows: Nasal spray- use twice daily, one spray per nostril twice daily, after 30 minutes, rinse out nose with saline spray.. Use opposite hand per nostril to spray in the nasal steroid allergy spray. Continue protonix add carafate discussed referral for EGD if symptoms persist . Esophageal Reflux - the patient has been counseled against excessive intake of caffeine, spicy foods, peppermint, and cinnamon - all of which can exacerbate esophageal reflux. The patient is to take medications as prescribed and call the office if the symptoms are not improving.
--- OUTSIDE RECORDS SUMMARY | 2019-04-01 12:23 | XMS REPORT | CCD ---
Author Author Rebeka Burgos Organization [facility] Address [address] [place] [address] Phone Care Team Providers Care Training Designer Name Role Phone PP Unavailable CCM Unavailable Summary Purpose Interface Exchange Insurance Providers Payer name Policy type / Coverage type Covered democrat ID Effective Begin Date Effective End Date Blue Cross Blue [facility] Blue Cross/Blue Shield [id number] 2018 Unknown Family history Mother Diagnosis Age [...] Start Date Stop Date Status Fill Instructions Flonase Allergy Relief 50 mcg/actuation nasal spray,suspension RxNorm: 7411269 1-2 [place] NASAL daily 01/06/2019 No Stop Date Active Zithromax Z-William 250 mg tablet RxNorm: 884264 1 Tablet(s) PO UD 01/06/2019 01/05/2019 Inactive zpack as directed Zithromax Z-William 250 mg tablet RxNorm: 411642 1 Tablet(s) PO UD 01/06/2019 01/10/2019 Inactive zpack as directed Xofluza 40 mg tablet RxNorm: 9410434 1 Tablet(s) PO once 11/27/2018 01/05/2019 Inactive Diflucan 150 mg tablet RxNorm: 280112 1 Tablet(s) PO daily 11/27/2018 12/01/2018 Inactive amoxicillin 500 mg capsule RxNorm: 796818 1 Capsule(s) PO TID 11/27/2018 12/03/2018 Inactive Kenalog 40 mg/mL suspension for injection RxNorm: 4551537 Milliliter(s) Inj 11/27/2018 11/27/2018 Inactive acyclovir 400 mg tablet RxNorm: 635782 2 Tablet(s) PO QID 11/22/2018 11/21/2018 Inactive acyclovir 400 mg tablet RxNorm: 875357 2 Tablet(s) PO QID 11/22/2018 12/01/2018 Inactive Diflucan 150 mg tablet RxNorm: 925022 TAKE ONE TABLET BY MOUTH DAILY 10/04/2018 10/07/2018 Inactive Patient should contact Prescriber first promethazine 25 mg tablet RxNorm: 397936 1 Tablet(s) PO TID as needed 07/31/2018 No Stop Date Active Zofran ODT 4 mg disintegrating tablet RxNorm: 699743 1 Tablet(s) PO Q6 as needed 07/30/2018 09/27/2018 Inactive Zofran ODT 4 mg disintegrating tablet RxNorm: 526067 1 Tablet(s) PO Q6 as needed 07/30/2018 07/29/2018 Inactive Diflucan 150 mg tablet RxNorm: 310719 1 Tablet(s) PO daily 05/15/2018 05/21/2018 Inactive Protonix 40 mg tablet,delayed release RxNorm: 171901 1 Tablet(s) PO daily 03/21/2018 08/17/2018 Inactive Zofran 4 mg tablet RxNorm: 035863 1 Tablet(s) PO Q6 PRN 03/11/2018 07/29/2018 Inactive Carafate 1 gram tablet RxNorm: 858210 1 Tablet(s) PO AC & HS 03/11/2018 03/24/2018 Inactive prednisone 10 mg tablet RxNorm: 017334 Tablet(s) PO 01/30/2018 01/05/2019 Inactive 6,5,4,3,2,1 doxycycline hyclate 100 mg tablet RxNorm: 289728 1 Tablet(s) PO BID 01/28/2018 02/03/2018 Inactive Diflucan 150 mg tablet RxNorm: 138209 1 Tablet(s) PO daily 01/28/2018 02/03/2018 Inactive clindamycin HCl 300 mg capsule RxNorm: 908965 1 Capsule(s) PO TID 01/17/2018 01/19/2018 Inactive acyclovir 800 mg tablet RxNorm: 338563 1 Tablet(s) PO five times per day 5x daily 01/17/2018 01/27/2018 Inactive mupirocin 2 % topical ointment RxNorm: 023867 1 Application TOP BID 01/17/2018 01/26/2018 Inactive estradiol 0.1 mg/24 hr semiweekly transdermal patch RxNorm: 359992 1 Patch TD BIW No Start Date Active Flonase Allergy Relief 50 mcg/actuation nasal spray,suspension RxNorm: 4894454 1-2 [place] NASAL daily No Start Date 01/05/2019 Inactive Protonix 40 mg tablet,delayed release RxNorm: 007497 1 Tablet(s) PO daily No Start Date 03/20/2018 Inactive acyclovir 800 mg tablet RxNorm: 408655 1 Tablet(s) PO five times per day No Start Date 01/16/2018 Inactive clindamycin HCl oral RxNorm: 2582 oral No Start Date 01/27/2018 Inactive prednisone 10 mg tablet RxNorm: 634463 Tablet(s) PO No Start Date 01/29/2018 Inactive 6,5,4,3,2,1 promethazine 25 mg tablet RxNorm: 589554 1 Tablet(s) PO TID as needed No Start Date 07/30/2018 Inactive Medication Administered Medication Codes Instructions Start Date Status Kenalog 40 mg/mL suspension for injection RxNorm: 1457189 Milliliter 11/27/2018 No longer Active Immunizations Vaccine [...] Item Item Code Result Date Influenza A+B [id number] Influ A+B Negative 11/27/2018 Review of Systems [...] 1: 116/80 Code: 8480-6 BMI: 21.4 Code: 40182-4 Heart Rate 1: 82 bpm Height: 4'11" SpO2: 99% Weight: 106 lbs 11/27/2018 Blood Pressure 1: 120/82 Code: 8480-6 BMI: 22.0 Code: 35086-2 Heart Rate 1: 90 bpm Height: 4'11" SpO2: 99% Weight: 109 lbs 03/11/2018 Blood Pressure 1: 124/80 Code: 8480-6 BMI: 21.0 Code: 30435-9 Heart Rate 1: 66 bpm Height: 4'11" SpO2: 97% Temperature: 36.8 (C) / 98.3 (F) Weight: 104 lbs 01/28/2018 Height: Temperature: 36.7 (C) / 98.0 (F) Weight: 01/17/2018 Blood Pressure 1: 110/82 Code: 8480-6 BMI: 21.0 Code: 70797-3 Heart Rate 1: 66 bpm Height: 4'11" [...] data Encounters Encounter Performer Location Codes Date ([id number]) 50012 EST. PATIENT, LEVEL III Diagnosis: Epigastric pain[ICD10: R10.13] Diagnosis: Gastro-esophageal reflux disease without esophagitis[ICD10: K21.9] [facility] CPT-4: 94315 01/28/2019 18323 EST. PATIENT, LEVEL III Diagnosis: Acute laryngopharyngitis[ICD10: J06.0] Diagnosis: Other allergic rhinitis[ICD10: J30.89] [facility] CPT- 4: 48345 11/27/2018 ([id number]) 35064 EST. PATIENT, LEVEL III Diagnosis: Cough[ICD10: R05] Diagnosis: Gastro-esophageal reflux disease without esophagitis[ICD10: K21.9] Re[facility]ka [facility] MD, [facility] CPT-4: 80812 03/11/2018 02006 EST. PATIENT, LEVEL II Diagnosis: Follicular disorder, unspecified[ICD10: L73.9] Diagnosis: Rash and other nonspecific skin eruption[ICD10: R21] [facility] CPT-4: 25211 01/28/2018 OFFICE VISIT, NEW - LEVEL 3 Diagnosis: Zoster without complications[ICD10: B02.9] Diagnosis: Cutaneous abscess of buttock[ICD10: L02.31] [facility] CPT-4: 92989 01/17/2018 Plan of Care Planned Activity Notes Codes Status Date Visit Plan: Epigastric pain -esophageal Reflux - the patient has been counseled against excessive intake of caffeine, spicy foods, peppermint, and cinnamon - all of which can exacerbate esophageal reflux. The pa tient is to take medications as prescribed and call the office if the symptoms are not improving. 01/28/2019 Patient Education: Patient Medication Summary Completed [...] allergy spray. 11/27/2018 Appointment: Darlene Mosley WPtel: [address] [place], [place] [phone] (30 min) Complex 11/27/2018 Appointment: Darlene Mosley WPtel: [address] [place], [place] [phone] [place] (15 min) Moderate 11/27/2018 Patient Education: Patient Medication Summary Completed 11/27/2018 Appointment: Rebeka Burgos WPtel: [address] [place], [place] [phone] (15 min) Moderate 08/01/2018 Visit Plan: Esophageal Reflux - the patient has been counseled against excessive intake of caffeine, spicy foods, peppermint, and cinnamon - all of which can exacerbate esophageal reflux. The patient is to take med ications as prescribed and call the office if the symptoms are not improving. 03/11/2018 Appointment: Rebeka Burgos WPtel: [address] [place], [place] [phone] (15 min) Moderate 03/11/2018 Patient Education: Patient Medication Summary Completed 03/11/2018 Visit Plan: Folliculitis-culture obtained today in the office- rx sent to patient's pharmacy and instructed on use-call if symptoms do not resolve 01/28/2018 Appointment: Rebeka Burgos WPtel: [address] [place], [place] [phone] (15 min) Moderate 01/28/2018 Patient Education: Patient Medication Summary Completed 01/28/2018 Visit Plan: Shingles-continue acyclovir as directed-return if symptoms do not resolve as discussed Abscess of buttock-continue clindamycin- return if symptoms do not resolve completely 01/17/2018 Appointment: Rebeka Burgos WPtel: [address] [place], [place] [phone] New Patient 01/17/2018 Patient Education: Patient Medication [...]
--- OUTSIDE RECORDS SUMMARY | 2019-04-01 12:23 | XMS REPORT | CCD ---
Author Author Rebeka Burgos Organization [facility] Address [address] [place] [address] Phone Care Team Providers Care Artistic Associate Name Role Phone PP Unavailable CCM Unavailable Summary Purpose Interface Exchange Insurance Providers Payer name Policy type / Coverage type Covered alliance party ID Effective Begin Date Effective End Date Blue Cross Blue [facility] Blue Cross/Blue Shield [id number] 2018 Unknown Family history Mother Diagnosis Age [...] Allergy Relief 50 mcg/actuation nasal spray,suspension RxNorm: 8590773 1-2 [place] NASAL daily 01/06/2019 No Stop Date Active Zithromax Z-William 250 mg tablet RxNorm: 585330 1 Tablet(s) PO UD 01/06/2019 01/05/2019 Inactive zpack as directed Zithromax Z-William 250 mg tablet RxNorm: 725485 1 Tablet(s) PO UD 01/06/2019 01/10/2019 Inactive zpack as directed Xofluza 40 mg tablet RxNorm: 2345831 1 Tablet(s) PO once 11/27/2018 01/05/2019 Inactive Diflucan 150 mg tablet RxNorm: 879344 1 Tablet(s) PO daily 11/27/2018 12/01/2018 Inactive amoxicillin 500 mg capsule RxNorm: 232190 1 Capsule(s) PO TID 11/27/2018 12/03/2018 Inactive Kenalog 40 mg/mL suspension for injection RxNorm: 0395322 Milliliter(s) Inj 11/27/2018 11/27/2018 Inactive acyclovir 400 mg tablet RxNorm: 986334 2 Tablet(s) PO QID 11/22/2018 11/21/2018 Inactive acyclovir 400 mg tablet RxNorm: 446772 2 Tablet(s) PO QID 11/22/2018 12/01/2018 Inactive Diflucan 150 mg tablet RxNorm: 975754 TAKE ONE TABLET BY MOUTH DAILY 10/04/2018 10/07/2018 Inactive Patient should contact Prescriber first promethazine 25 mg tablet RxNorm: 320534 1 Tablet(s) PO TID as needed 07/31/2018 No Stop Date Active Zofran ODT 4 mg disintegrating tablet RxNorm: 871975 1 Tablet(s) PO Q6 as needed 07/30/2018 09/27/2018 Inactive Zofran ODT 4 mg disintegrating tablet RxNorm: 926308 1 Tablet(s) PO Q6 as needed 07/30/2018 07/29/2018 Inactive Diflucan 150 mg tablet RxNorm: 028540 1 Tablet(s) PO daily 05/15/2018 05/21/2018 Inactive Protonix 40 mg tablet,delayed release RxNorm: 382447 1 Tablet(s) PO daily 03/21/2018 08/17/2018 Inactive Zofran 4 mg tablet RxNorm: 215932 1 Tablet(s) PO Q6 PRN 03/11/2018 07/29/2018 Inactive Carafate 1 gram tablet RxNorm: 747379 1 Tablet(s) PO AC & HS 03/11/2018 03/24/2018 Inactive prednisone 10 mg tablet RxNorm: 391989 Tablet(s) PO 01/30/2018 01/05/2019 Inactive 6,5,4,3,2,1 doxycycline hyclate 100 mg tablet RxNorm: 600008 1 Tablet(s) PO BID 01/28/2018 02/03/2018 Inactive Diflucan 150 mg tablet RxNorm: 978441 1 Tablet(s) PO daily 01/28/2018 02/03/2018 Inactive clindamycin HCl 300 mg capsule RxNorm: 402654 1 Capsule(s) PO TID 01/17/2018 01/19/2018 Inactive acyclovir 800 mg tablet RxNorm: 281811 1 Tablet(s) PO five times per day 5x daily 01/17/2018 01/27/2018 Inactive mupirocin 2 % topical ointment RxNorm: 021949 1 Application TOP BID 01/17/2018 01/26/2018 Inactive estradiol 0.1 mg/24 hr semiweekly transdermal patch RxNorm: 691392 1 Patch TD BIW No Start Date Active Flonase Allergy Relief 50 mcg/actuation nasal spray,suspension RxNorm: 1462333 1-2 [place] NASAL daily No Start Date 01/05/2019 Inactive Protonix 40 mg tablet,delayed release RxNorm: 028324 1 Tablet(s) PO daily No Start Date 03/20/2018 Inactive acyclovir 800 mg tablet RxNorm: 879175 1 Tablet(s) PO five times per day No Start Date 01/16/2018 Inactive clindamycin HCl oral RxNorm: 2582 oral No Start Date 01/27/2018 Inactive prednisone 10 mg tablet RxNorm: 579093 Tablet(s) PO No Start Date 01/29/2018 Inactive 6,5,4,3,2,1 promethazine 25 mg tablet RxNorm: 171915 1 Tablet(s) PO TID as needed No Start Date 07/30/2018 Inactive Medication Administered Medication Codes Instructions Start Date Status Kenalog 40 mg/mL suspension for injection RxNorm: 0555504 Milliliter 11/27/2018 No longer Active Immunizations Vaccine [...] Item Item Code Result Date Influenza A+B [id number] Influ A+B Negative 11/27/2018 Review of Systems [...] 1: 116/80 Code: 8480-6 BMI: 21.4 Code: 44313-2 Heart Rate 1: 82 bpm Height: 4'11" SpO2: 99% Weight: 106 lbs 11/27/2018 Blood Pressure 1: 120/82 Code: 8480-6 BMI: 22.0 Code: 00769-6 Heart Rate 1: 90 bpm Height: 4'11" SpO2: 99% Weight: 109 lbs 03/11/2018 Blood Pressure 1: 124/80 Code: 8480-6 BMI: 21.0 Code: 22232-4 Heart Rate 1: 66 bpm Height: 4'11" SpO2: 97% Temperature: 36.8 (C) / 98.3 (F) Weight: 104 lbs 01/28/2018 Height: Temperature: 36.7 (C) / 98.0 (F) Weight: 01/17/2018 Blood Pressure 1: 110/82 Code: 8480-6 BMI: 21.0 Code: 75408-2 Heart Rate 1: 66 bpm Height: 4'11" [...] data Encounters Encounter Performer Location Codes Date ([id number]) 01685 EST. PATIENT, LEVEL III Diagnosis: Epigastric pain[ICD10: R10.13] Diagnosis: Gastro-esophageal reflux disease without esophagitis[ICD10: K21.9] [facility] CPT-4: 27098 01/28/2019 92290 EST. PATIENT, LEVEL III Diagnosis: Acute laryngopharyngitis[ICD10: J06.0] Diagnosis: Other allergic rhinitis[ICD10: J30.89] [facility] CPT- 4: 43947 11/27/2018 ([id number]) 33340 EST. PATIENT, LEVEL III Diagnosis: Cough[ICD10: R05] Diagnosis: Gastro-esophageal reflux disease without esophagitis[ICD10: K21.9] Rebeka Garcia MD, [facility] CPT-4: 75162 03/11/2018 58667 EST. PATIENT, LEVEL II Diagnosis: Follicular disorder, unspecified[ICD10: L73.9] Diagnosis: Rash and other nonspecific skin eruption[ICD10: R21] [facility] CPT-4: 50590 01/28/2018 OFFICE VISIT, NEW - LEVEL 3 Diagnosis: Zoster without complications[ICD10: B02.9] Diagnosis: Cutaneous abscess of buttock[ICD10: L02.31] [facility] CPT-4: 48283 01/17/2018 Plan of Care Planned Activity Notes [...] allergy spray. 11/27/2018 Appointment: Darlene Mosley WPtel: [address] [place], [place] [phone] (30 min) Complex 11/27/2018 Appointment: Darlene Mosely WPtel: [address] [place], [place] [phone] [place] (15 min) Moderate 11/27/2018 Patient Education: Patient Medication Summary Completed 11/27/2018 Appointment: Rebeka Burgos WPtel: [address] [place], [place] [phone] (15 min) Moderate 08/01/2018 Visit Plan: Esophageal Reflux - the patient has been counseled against excessive intake of caffeine, spicy foods, peppermint, and cinnamon - all of which can exacerbate esophageal reflux. The patient is to take med ications as prescribed and call the office if the symptoms are not improving. 03/11/2018 Appointment: Rebeka Burgos WPtel: [address] [place], [place] [phone] (15 min) Moderate 03/11/2018 Patient Education: Patient Medication Summary Completed 03/11/2018 Visit Plan: Folliculitis-culture obtained today in the office- rx sent to patient's pharmacy and instructed on use-call if symptoms do not resolve 01/28/2018 Appointment: Rebeka Burgos WPtel: [address] [place], [place] [phone] (15 min) Moderate 01/28/2018 Patient Education: Patient Medication Summary Completed 01/28/2018 Visit Plan: Shingles-continue acyclovir as directed-return if symptoms do not resolve as discussed Abscess of buttock-continue clindamycin- return if symptoms do not resolve completely 01/17/2018 Appointment: Rebeka Burgos WPtel: [address] [place], [place] [phone] New Patient 01/17/2018 Patient Education: Patient Medication [...]
--- OUTSIDE RECORDS SUMMARY | 2019-04-01 12:24 | XMS REPORT | CCD ---
Author Author Rebeka Burgos Organization [facility] Address [address] [place] [address] Phone Care Team Providers Care Panel Machine Operator Name Role Phone PP Unavailable CCM Unavailable Summary Purpose Interface Exchange Insurance Providers Payer name Policy type / Coverage type Covered alliance party ID Effective Begin Date Effective End Date Blue Cross Blue [facility] Blue Cross/Blue [facility] [id number] 2018 Unknown Family history Mother Diagnosis Age [...] Codes Condition Status Onset Date Resolved Date Acute laryngopharyngitis ICD-9: 465.0 ICD-10: J06.0 Active [...] Problems Condition Codes Effective Dates Condition Status Acute laryngopharyngitis ICD-9: 465.0 ICD-10: J06.0 11/27/2018 [...] Allergy Relief 50 mcg/actuation nasal spray,suspension RxNorm: 5935497 1-2 Slater NASAL daily 01/06/2019 No Stop Date Active Zithromax Z-William 250 mg tablet RxNorm: 432079 1 Tablet(s) PO UD 01/06/2019 01/10/2019 Active zpack as directed Zithromax Z-William 250 mg tablet RxNorm: 940058 1 Tablet(s) PO UD 01/06/2019 01/05/2019 Inactive zpack as directed Xofluza 40 mg tablet RxNorm: 2388544 1 Tablet(s) PO once 11/27/2018 01/05/2019 Inactive Diflucan 150 mg tablet RxNorm: 633474 1 Tablet(s) PO daily 11/27/2018 12/01/2018 Inactive amoxicillin 500 mg capsule RxNorm: 769492 1 Capsule(s) PO TID 11/27/2018 12/03/2018 Inactive Kenalog 40 mg/mL suspension for injection RxNorm: 3195159 Milliliter(s) Inj 11/27/2018 11/27/2018 Inactive acyclovir 400 mg tablet RxNorm: 238661 2 Tablet(s) PO QID 11/22/2018 11/21/2018 Inactive acyclovir 400 mg tablet RxNorm: 701049 2 Tablet(s) PO QID 11/22/2018 12/01/2018 Inactive Diflucan 150 mg tablet RxNorm: 378703 TAKE ONE TABLET BY MOUTH DAILY 10/04/2018 10/07/2018 Inactive Patient should contact Prescriber first promethazine 25 mg tablet RxNorm: 046783 1 Tablet(s) PO TID as needed 07/31/2018 No Stop Date Active Zofran ODT 4 mg disintegrating tablet RxNorm: 377617 1 Tablet(s) PO Q6 as needed 07/30/2018 09/27/2018 Inactive Zofran ODT 4 mg disintegrating tablet RxNorm: 755918 1 Tablet(s) PO Q6 as needed 07/30/2018 07/29/2018 Inactive Diflucan 150 mg tablet RxNorm: 545392 1 Tablet(s) PO daily 05/15/2018 05/21/2018 Inactive Protonix 40 mg tablet,delayed release RxNorm: 031961 1 Tablet(s) PO daily 03/21/2018 08/17/2018 Inactive Zofran 4 mg tablet RxNorm: 079106 1 Tablet(s) PO Q6 PRN 03/11/2018 07/29/2018 Inactive Carafate 1 gram tablet RxNorm: 358607 1 Tablet(s) PO AC & HS 03/11/2018 03/24/2018 Inactive prednisone 10 mg tablet RxNorm: 643206 Tablet(s) PO 01/30/2018 01/05/2019 Inactive 6,5,4,3,2,1 doxycycline hyclate 100 mg tablet RxNorm: 877354 1 Tablet(s) PO BID 01/28/2018 02/03/2018 Inactive Diflucan 150 mg tablet RxNorm: 485281 1 Tablet(s) PO daily 01/28/2018 02/03/2018 Inactive clindamycin HCl 300 mg capsule RxNorm: 175625 1 Capsule(s) PO TID 01/17/2018 01/19/2018 Inactive acyclovir 800 mg tablet RxNorm: 001684 1 Tablet(s) PO five times per day 5x daily 01/17/2018 01/27/2018 Inactive mupirocin 2 % topical ointment RxNorm: 196209 1 Application TOP BID 01/17/2018 01/26/2018 Inactive estradiol 0.1 mg/24 hr semiweekly transdermal patch RxNorm: 489094 1 Patch TD BIW No Start Date Active Flonase Allergy Relief 50 mcg/actuation nasal spray,suspension RxNorm: 4424911 1-2 Slater NASAL daily No Start Date 01/05/2019 Inactive Protonix 40 mg tablet,delayed release RxNorm: 829136 1 Tablet(s) PO daily No Start Date 03/20/2018 Inactive acyclovir 800 mg tablet RxNorm: 363709 1 Tablet(s) PO five times per day No Start Date 01/16/2018 Inactive clindamycin HCl oral RxNorm: 2582 oral No Start Date 01/27/2018 Inactive prednisone 10 mg tablet RxNorm: 597748 Tablet(s) PO No Start Date 01/29/2018 Inactive 6,5,4,3,2,1 promethazine 25 mg tablet RxNorm: 345950 1 Tablet(s) PO TID as needed No Start Date 07/30/2018 Inactive Medication Administered Medication Codes Instructions Start Date Status Kenalog 40 mg/mL suspension for injection RxNorm: 3186610 Milliliter 11/27/2018 No longer Active Immunizations Vaccine Codes Date Status Tetanus, Diptheria, Pertussis CVX: 113 04/24/2016 completed Tetanus/Diptheria CVX: 113 04/24/2016 completed Assessments Condition Codes Effective Dates Acute laryngopharyngitis ICD-10: J06.0 ICD-9: 465.0 11/27/2018 Other allergic rhinitis ICD-10: J30.89 ICD-9: 477.8 11/27/2018 Gastro-esophageal reflux disease without esophagitis ICD-10: K21.9 ICD-9: 530.81 03/11/2018 Cough ICD-10: R05 ICD-9: 786.2 03/11/2018 Rash and other nonspecific skin eruption ICD-10: R21 ICD-9: 782.1 01/28/2018 Follicular disorder, unspecified ICD-10: L73.9 ICD-9: 704.8 01/28/2018 Zoster without complications ICD-10: B02.9 ICD-9: 053.9 01/17/2018 Cutaneous abscess of buttock ICD-10: L02.31 ICD-9: 682.5 01/17/2018 Reason For Visit Reason For Visit Effective Dates Notes sinus congestion 11/27/2018 sinus congestion 03/11/2018 rash 01/28/2018 rash 01/17/2018 Results Observation Observation Code Item Item Code Result Date Influenza A+B [id number] Influ A+B Negative 11/27/2018 Review of Systems System Result Effective Dates Constitutional recent illness 11/27/2018 Constitutional chills 11/27/2018 [...] Result Effective Dates Notes Full Exam - ENT Constitutional general appearance [...] CPT-4: J3301 11/27/2018 Vital Signs Date Vital 11/27/2018 Blood Pressure 1: 120/82 Code: 8480-6 BMI: 22.0 Code: 89628-5 Heart Rate 1: 90 bpm Height: 4'11" SpO2: 99% Weight: 109 lbs 03/11/2018 Blood Pressure 1: 124/80 Code: 8480-6 BMI: 21.0 Code: 42906-9 Heart Rate 1: 66 bpm Height: 4'11" SpO2: 97% Temperature: 36.8 (C) / 98.3 (F) Weight: 104 lbs 01/28/2018 Height: Temperature: 36.7 (C) / 98.0 (F) Weight: 01/17/2018 Blood Pressure 1: 110/82 Code: 8480-6 BMI: 21.0 Code: 23728-7 Heart Rate 1: 66 bpm Height: 4'11" SpO2: 99% Temperature: 36.7 (C) / 98.1 (F) Weight: 104 lbs Functional Status No Functional Status data History of Present Illness Symptom Name Status Result Effective Date Notes Location frontal sinuses 11/27/2018 None Quality constant [...] data Encounters Encounter Performer Location Codes Date 74435 EST. PATIENT, LEVEL III Diagnosis: Acute laryngopharyngitis[ICD10: J06.0] Diagnosis: Other allergic rhinitis[ICD10: J30.89] [facility] CPT- 4: 13585 11/27/2018 ([id number]) 43057 EST. PATIENT, LEVEL III Diagnosis: Cough[ICD10: R05] Diagnosis: Gastro-esophageal reflux disease without esophagitis[ICD10: K21.9] [facility] CPT-4: 23133 03/11/2018 26645 EST. PATIENT, LEVEL II Diagnosis: Follicular disorder, unspecified[ICD10: L73.9] Diagnosis: Rash and other nonspecific skin eruption[ICD10: R21] [facility] CPT-4: 28877 01/28/2018 OFFICE VISIT, NEW - LEVEL 3 Diagnosis: Zoster without complications[ICD10: B02.9] Diagnosis: Cutaneous abscess of buttock[ICD10: L02.31] [facility] CPT-4: 77664 01/17/2018 Plan of Care Planned Activity Notes Codes Status Date Visit Plan: URI - Pt advised to [...] allergy spray. 11/27/2018 Appointment: Darlene Mosley WPtel: [facility]5 [facility] (30 min) Complex 11/27/2018 Appointment: Darlene Mosley WPtel: [facility]5 [facility]66[facility] (15 min) Moderate 11/27/2018 Patient Education: Patient Medication Summary Completed 11/27/2018 Appointment: Rebeka Burgos WPtel: [facility]5 [phone] (15 min) Moderate 08/01/2018 Visit Plan: Esophageal Reflux - the patient has been counseled against excessive intake of caffeine, spicy foods, peppermint, and cinnamon - all of which can exacerbate esophageal reflux. The patient is to take med ications as prescribed and call the office if the symptoms are not improving. 03/11/2018 Appointment: Rebeka Burgos WPtel: [phone] [facility] [place] [address] (15 min) Moderate 03/11/2018 Patient Education: Patient Medication Summary Completed 03/11/2018 Visit Plan: Folliculitis-culture obtained today in the office- rx sent to patient's pharmacy and instructed on use-call if symptoms do not resolve 01/28/2018 Appointment: Rebeka Burgos WPtel: [facility] (15 min) Moderate 01/28/2018 Patient Education: Patient Medication Summary Completed 01/28/2018 Visit Plan: Shingles-continue acyclovir as directed-return if symptoms do not resolve as discussed Abscess of buttock-continue clindamycin- return if symptoms do not resolve completely 01/17/2018 Appointment: Rebeka Burgos WPtel: [facility]2 [phone] New Patient 01/17/2018 Patient Education: Patient Medication [...]
--- OUTSIDE RECORDS SUMMARY | 2019-04-01 12:24 | XMS REPORT | CCD ---
Author Author Rebeka Burgos Organization [facility] Address [address] [place] [address] Phone Care Team Providers Care Shank Boner Name Role Phone PP Unavailable CCM Unavailable Summary Purpose Interface Exchange Insurance Providers Payer name Policy type / Coverage type Covered green party ID Effective Begin Date Effective End Date Blue Cross Blue [facility] Blue Cross/Blue [facility] [id number] 2018 Unknown Family history Mother Diagnosis Age [...] Start Date Stop Date Status Fill Instructions Zithromax Z-William 250 mg tablet RxNorm: 378570 1 Tablet(s) PO UD 01/06/2019 01/10/2019 Active zpack as directed Zithromax Z-William 250 mg tablet RxNorm: 328023 1 Tablet(s) PO UD 01/06/2019 01/05/2019 Inactive zpack as directed Xofluza 40 mg tablet RxNorm: 2570464 1 Tablet(s) PO once 11/27/2018 No Stop Date Active Diflucan 150 mg tablet RxNorm: 480602 1 Tablet(s) PO daily 11/27/2018 12/01/2018 Inactive amoxicillin 500 mg capsule RxNorm: 797503 1 Capsule(s) PO TID 11/27/2018 12/03/2018 Inactive Kenalog 40 mg/mL suspension for injection RxNorm: 4441466 Milliliter(s) Inj 11/27/2018 11/27/2018 Inactive acyclovir 400 mg tablet RxNorm: 893178 2 Tablet(s) PO QID 11/22/2018 11/21/2018 Inactive acyclovir 400 mg tablet RxNorm: 344987 2 Tablet(s) PO QID 11/22/2018 12/01/2018 Inactive Diflucan 150 mg tablet RxNorm: 822220 TAKE ONE TABLET BY MOUTH DAILY 10/04/2018 10/07/2018 Inactive Patient should contact Prescriber first promethazine 25 mg tablet RxNorm: 622378 1 Tablet(s) PO TID as needed 07/31/2018 No Stop Date Active Zofran ODT 4 mg disintegrating tablet RxNorm: 463758 1 Tablet(s) PO Q6 as needed 07/30/2018 09/27/2018 Inactive Zofran ODT 4 mg disintegrating tablet RxNorm: 929013 1 Tablet(s) PO Q6 as needed 07/30/2018 07/29/2018 Inactive Diflucan 150 mg tablet RxNorm: 976134 1 Tablet(s) PO daily 05/15/2018 05/21/2018 Inactive Protonix 40 mg tablet,delayed release RxNorm: 006454 1 Tablet(s) PO daily 03/21/2018 08/17/2018 Inactive Zofran 4 mg tablet RxNorm: 891342 1 Tablet(s) PO Q6 PRN 03/11/2018 07/29/2018 Inactive Carafate 1 gram tablet RxNorm: 799061 1 Tablet(s) PO AC & HS 03/11/2018 03/24/2018 Inactive prednisone 10 mg tablet RxNorm: 368784 Tablet(s) PO 01/30/2018 No Stop Date Active 6,5,4,3,2,1 doxycycline hyclate 100 mg tablet RxNorm: 776653 1 Tablet(s) PO BID 01/28/2018 02/03/2018 Inactive Diflucan 150 mg tablet RxNorm: 142959 1 Tablet(s) PO daily 01/28/2018 02/03/2018 Inactive clindamycin HCl 300 mg capsule RxNorm: 702555 1 Capsule(s) PO TID 01/17/2018 01/19/2018 Inactive acyclovir 800 mg tablet RxNorm: 106370 1 Tablet(s) PO five times per day 5x daily 01/17/2018 01/27/2018 Inactive mupirocin 2 % topical ointment RxNorm: 228444 1 Application TOP BID 01/17/2018 01/26/2018 Inactive estradiol 0.1 mg/24 hr semiweekly transdermal patch RxNorm: 615856 1 Patch TD BIW No Start Date Active Protonix 40 mg tablet,delayed release RxNorm: 978348 1 Tablet(s) PO daily No Start Date 03/20/2018 Inactive acyclovir 800 mg tablet RxNorm: 312888 1 Tablet(s) PO five times per day No Start Date 01/16/2018 Inactive clindamycin HCl oral RxNorm: 2582 oral No Start Date 01/27/2018 Inactive prednisone 10 mg tablet RxNorm: 553939 Tablet(s) PO No Start Date 01/29/2018 Inactive 6,5,4,3,2,1 promethazine 25 mg tablet RxNorm: 400150 1 Tablet(s) PO TID as needed No Start Date 07/30/2018 Inactive Medication Administered Medication Codes Instructions Start Date Status Kenalog 40 mg/mL suspension for injection RxNorm: 7475077 Milliliter 11/27/2018 No longer Active Immunizations Vaccine [...] Item Item Code Result Date Influenza A+B [id number] Influ A+B Negative 11/27/2018 Review of Systems [...] 1: 120/82 Code: 8480-6 BMI: 22.0 Code: 31682-7 Heart Rate 1: 90 bpm Height: 4'11" SpO2: 99% Weight: 109 lbs 03/11/2018 Blood Pressure 1: 124/80 Code: 8480-6 BMI: 21.0 Code: 93263-6 Heart Rate 1: 66 bpm Height: 4'11" SpO2: 97% Temperature: 36.8 (C) / 98.3 (F) Weight: 104 lbs 01/28/2018 Height: Temperature: 36.7 (C) / 98.0 (F) Weight: 01/17/2018 Blood Pressure 1: 110/82 Code: 8480-6 BMI: 21.0 Code: 96426-9 Heart Rate 1: 66 bpm Height: 4'11" [...] Codes Date EST. PATIENT, LEVEL III Diagnosis: Acute laryngopharyngitis[ICD10: J06.0] Diagnosis: Other allergic rhinitis[ICD10: J30.89] Darlene Garcia MD, [facility] CPT- 4: 24916 11/27/2018 ([id number]) 17525 EST. PATIENT, LEVEL III Diagnosis: Cough[ICD10: R05] Diagnosis: Gastro-esophageal reflux disease without esophagitis[ICD10: K21.9] [facility] CPT-4: 78872 03/11/2018 17111 EST. PATIENT, LEVEL II Diagnosis: Follicular disorder, unspecified[ICD10: L73.9] Diagnosis: Rash and other nonspecific skin eruption[ICD10: R21] Rebeka Garcia MD, [facility] CPT-4: 16503 01/28/2018 OFFICE VISIT, NEW - LEVEL 3 Diagnosis: Zoster without complications[ICD10: B02.9] Diagnosis: Cutaneous abscess of buttock[ICD10: L02.31] Rebeka Garcia MD, [facility] CPT-4: 82292 01/17/2018 Plan of Care Planned Activity Notes [...] allergy spray. 11/27/2018 Appointment: Darlene Mosley WPtel: [facility]5 [phone] (30 min) Complex 11/27/2018 Appointment: Darlene Mosley WPtel: [facility]5 [phone] (15 min) Moderate 11/27/2018 Patient Education: Patient Medication Summary Completed 11/27/2018 Appointment: Rebeka Burgos WPtel: [facility]5 [phone] (15 min) Moderate 08/01/2018 Visit Plan: Esophageal Reflux - the patient has been counseled against excessive intake of caffeine, spicy foods, peppermint, and cinnamon - all of which can exacerbate esophageal reflux. The patient is to take med ications as prescribed and call the office if the symptoms are not improving. 03/11/2018 Appointment: Rebeka Burgos WPtel: [facility]6 [phone] (15 min) Moderate 03/11/2018 Patient Education: Patient Medication Summary Completed 03/11/2018 Visit Plan: Folliculitis-culture obtained today in the office- rx sent to patient's pharmacy and instructed on use-call if symptoms do not resolve 01/28/2018 Appointment: Aubrey Rebeka WPtel: [phone] [phone] (15 min) Moderate 01/28/2018 Patient Education: Patient Medication Summary Completed 01/28/2018 Visit Plan: Shingles-continue acyclovir as directed-return if symptoms do not resolve as discussed Abscess of buttock-continue clindamycin- return if symptoms do not resolve completely 01/17/2018 [facility]ment[phone] New Patient 01/17/2018 Patient Education: Patient Medication [...]
--- OUTSIDE RECORDS SUMMARY | 2019-04-01 12:25 | XMS REPORT | CCD ---
Author Author Rebeka Burgos Organization [facility] Address [address] [place] [address] Phone Care Team Providers Care 5Th Grade Teacher Name Role Phone PP Unavailable CCM Unavailable Summary Purpose Interface Exchange Insurance Providers Payer name Policy type / Coverage type Covered democrat ID Effective Begin Date Effective End Date Blue Cross Blue [facility] Blue Cross/Blue [facility] [id number] 2018 Unknown Family history Mother Diagnosis Age [...] Start Date Stop Date Status Fill Instructions Xofluza 40 mg tablet RxNorm: 5033660 1 Tablet(s) PO once 11/27/2018 No Stop Date Active Diflucan 150 mg tablet RxNorm: 490362 1 Tablet(s) PO daily 11/27/2018 12/01/2018 Active amoxicillin 500 mg capsule RxNorm: 902901 1 Capsule(s) PO TID 11/27/2018 12/03/2018 Active Kenalog 40 mg/mL suspension for injection RxNorm: 4854156 Milliliter(s) Inj 11/27/2018 11/27/2018 Inactive acyclovir 400 mg tablet RxNorm: 915379 2 Tablet(s) PO QID 11/22/2018 12/01/2018 Active acyclovir 400 mg tablet RxNorm: 156828 2 Tablet(s) PO QID 11/22/2018 11/21/2018 Inactive Diflucan 150 mg tablet RxNorm: 675062 TAKE ONE TABLET BY MOUTH DAILY 10/04/2018 10/07/2018 Inactive Patient should contact Prescriber first promethazine 25 mg tablet RxNorm: 844354 1 Tablet(s) PO TID as needed 07/31/2018 No Stop Date Active Zofran ODT 4 mg disintegrating tablet RxNorm: 243367 1 Tablet(s) PO Q6 as needed 07/30/2018 09/27/2018 Inactive Zofran ODT 4 mg disintegrating tablet RxNorm: 664690 1 Tablet(s) PO Q6 as needed 07/30/2018 07/29/2018 Inactive Diflucan 150 mg tablet RxNorm: 042210 1 Tablet(s) PO daily 05/15/2018 05/21/2018 Inactive Protonix 40 mg tablet,delayed release RxNorm: 348762 1 Tablet(s) PO daily 03/21/2018 08/17/2018 Inactive Zofran 4 mg tablet RxNorm: 753013 1 Tablet(s) PO Q6 PRN 03/11/2018 07/29/2018 Inactive Carafate 1 gram tablet RxNorm: 665232 1 Tablet(s) PO AC & HS 03/11/2018 03/24/2018 Inactive prednisone 10 mg tablet RxNorm: 630760 Tablet(s) PO 01/30/2018 No Stop Date Active 6,5,4,3,2,1 doxycycline hyclate 100 mg tablet RxNorm: 745093 1 Tablet(s) PO BID 01/28/2018 02/03/2018 Inactive Diflucan 150 mg tablet RxNorm: 774099 1 Tablet(s) PO daily 01/28/2018 02/03/2018 Inactive clindamycin HCl 300 mg capsule RxNorm: 809403 1 Capsule(s) PO TID 01/17/2018 01/19/2018 Inactive acyclovir 800 mg tablet RxNorm: 548436 1 Tablet(s) PO five times per day 5x daily 01/17/2018 01/27/2018 Inactive mupirocin 2 % topical ointment RxNorm: 053576 1 Application TOP BID 01/17/2018 01/26/2018 Inactive estradiol 0.1 mg/24 hr semiweekly transdermal patch RxNorm: 166257 1 Patch TD BIW No Start Date Active Protonix 40 mg tablet,delayed release RxNorm: 061890 1 Tablet(s) PO daily No Start Date 03/20/2018 Inactive acyclovir 800 mg tablet RxNorm: 889342 1 Tablet(s) PO five times per day No Start Date 01/16/2018 Inactive clindamycin HCl oral RxNorm: 2582 oral No Start Date 01/27/2018 Inactive prednisone 10 mg tablet RxNorm: 617843 Tablet(s) PO No Start Date 01/29/2018 Inactive 6,5,4,3,2,1 promethazine 25 mg tablet RxNorm: 452466 1 Tablet(s) PO TID as needed No Start Date 07/30/2018 Inactive Medication Administered Medication Codes Instructions Start Date Status Kenalog 40 mg/mL suspension for injection RxNorm: 4748369 Milliliter 11/27/2018 No longer Active Immunizations Vaccine [...] Item Item Code Result Date Influenza A+B [id number] Influ A+B Negative 11/27/2018 Review of Systems [...] 1: 120/82 Code: 8480-6 BMI: 22.0 Code: 15403-1 Heart Rate 1: 90 bpm Height: 4'11" SpO2: 99% Weight: 109 lbs 03/11/2018 Blood Pressure 1: 124/80 Code: 8480-6 BMI: 21.0 Code: 39804-3 Heart Rate 1: 66 bpm Height: 4'11" SpO2: 97% Temperature: 36.8 (C) / 98.3 (F) Weight: 104 lbs 01/28/2018 Height: Temperature: 36.7 (C) / 98.0 (F) Weight: 01/17/2018 Blood Pressure 1: 110/82 Code: 8480-6 BMI: 21.0 Code: 46059-1 Heart Rate 1: 66 bpm Height: 4'11" [...] data Encounters Encounter Performer Location Codes Date 13986 EST. PATIENT, LEVEL III Diagnosis: Acute laryngopharyngitis[ICD10: J06.0] Diagnosis: Other allergic rhinitis[ICD10: J30.89] Darlene Garcia MD, [facility] CPT- 4: 64273 11/27/2018 ([id number]) 84339 EST. PATIENT, LEVEL III Diagnosis: Cough[ICD10: R05] Diagnosis: Gastro-esophageal reflux disease without esophagitis[ICD10: K21.9] Rebeka Garcia MD, [facility] CPT-4: 30804 03/11/2018 [id number] EST. PATIENT, LEVEL II Diagnosis: Follicular disorder, unspecified[ICD10: L73.9] Diagnosis: Rash and other nonspecific skin eruption[ICD10: R21] [facility] CPT-4: 61913 01/28/2018 OFFICE VISIT, NEW - LEVEL 3 Diagnosis: Zoster without complications[ICD10: B02.9] Diagnosis: Cutaneous abscess of buttock[ICD10: L02.31] [facility] CPT-4: 38082 01/17/2018 Plan of Care Planned Activity Notes [...] allergy spray. 11/27/2018 Appointment: Darlene Mosley WPtel: [facility] [address] (30 min) Complex 11/27/2018 Appointment: Darlene Mosley WPtel: [address] [place] [address] (15 min) Moderate 11/27/2018 Patient Education: Patient Medication Summary Completed 11/27/2018 Appointment: Rebeka Burgos WPtel: [address] [place], [place] [phone] (15 min) Moderate 08/01/2018 Visit Plan: Esophageal Reflux - the patient has been counseled against excessive intake of caffeine, spicy foods, peppermint, and cinnamon - all of which can exacerbate esophageal reflux. The patient is to take med ications as prescribed and call the office if the symptoms are not improving. 03/11/2018 Appointment: Rebeka Burgos WPtel: [address] [place], [place] [phone] (15 min) Moderate 03/11/2018 Patient Education: Patient Medication Summary Completed 03/11/2018 Visit Plan: Folliculitis-culture obtained today in the office- rx sent to patient's pharmacy and instructed on use-call if symptoms do not resolve 01/28/2018 Appointment: Rebeka Burgos WPtel: [phone] (15 min) Moderate 01/28/2018 Patient Education: Patient Medication Summary Completed 01/28/2018 Visit Plan: Shingles-continue acyclovir as directed-return if symptoms do not resolve as discussed Abscess of buttock-continue clindamycin- return if symptoms do not resolve completely 01/17/2018 Appointment: Aub[facility] Rebeka [facility]Ptel[phone] [phone] [place] New Patient 01/17/2018 Patient Education: [...]
--- OUTSIDE RECORDS SUMMARY | 2019-04-01 12:25 | XMS REPORT | CCD ---
Author Author Rebeka Burgos Organization [facility] Address [address] [place] [address] Phone Care Team Providers Care Monument Carver Name Role Phone PP Unavailable CCM Unavailable Summary Purpose Interface Exchange Insurance Providers Payer name Policy type / Coverage type Covered democrat ID Effective Begin Date Effective End Date Blue Cross Blue [facility] Blue Cross/Blue [facility] [id number] 2018 Unknown Family history Mother Diagnosis Age [...] Fill Instructions Xofluza 40 mg tablet RxNorm: 4791251 1 Tablet(s) PO once 11/27/2018 No Stop Date Active amoxicillin 500 mg capsule RxNorm: 204678 1 Capsule(s) PO TID 11/27/2018 12/03/2018 Active Diflucan 150 mg tablet RxNorm: 132638 1 Tablet(s) PO daily 11/27/2018 12/01/2018 Inactive Kenalog 40 mg/mL suspension for injection RxNorm: 8629654 Milliliter(s) Inj 11/27/2018 11/27/2018 Inactive acyclovir 400 mg tablet RxNorm: 797740 2 Tablet(s) PO QID 11/22/2018 11/21/2018 Inactive acyclovir 400 mg tablet RxNorm: 929562 2 Tablet(s) PO QID 11/22/2018 12/01/2018 Inactive Diflucan 150 mg tablet RxNorm: 238411 TAKE ONE TABLET BY MOUTH DAILY 10/04/2018 10/07/2018 Inactive Patient should contact Prescriber first promethazine 25 mg tablet RxNorm: 087819 1 Tablet(s) PO TID as needed 07/31/2018 No Stop Date Active Zofran ODT 4 mg disintegrating tablet RxNorm: 587138 1 Tablet(s) PO Q6 as needed 07/30/2018 09/27/2018 Inactive Zofran ODT 4 mg disintegrating tablet RxNorm: 348932 1 Tablet(s) PO Q6 as needed 07/30/2018 07/29/2018 Inactive Diflucan 150 mg tablet RxNorm: 326586 1 Tablet(s) PO daily 05/15/2018 05/21/2018 Inactive Protonix 40 mg tablet,delayed release RxNorm: 145624 1 Tablet(s) PO daily 03/21/2018 08/17/2018 Inactive Zofran 4 mg tablet RxNorm: 469869 1 Tablet(s) PO Q6 PRN 03/11/2018 07/29/2018 Inactive Carafate 1 gram tablet RxNorm: 901543 1 Tablet(s) PO AC & HS 03/11/2018 03/24/2018 Inactive prednisone 10 mg tablet RxNorm: 670175 Tablet(s) PO 01/30/2018 No Stop Date Active 6,5,4,3,2,1 doxycycline hyclate 100 mg tablet RxNorm: 816997 1 Tablet(s) PO BID 01/28/2018 02/03/2018 Inactive Diflucan 150 mg tablet RxNorm: 184273 1 Tablet(s) PO daily 01/28/2018 02/03/2018 Inactive clindamycin HCl 300 mg capsule RxNorm: 230276 1 Capsule(s) PO TID 01/17/2018 01/19/2018 Inactive acyclovir 800 mg tablet RxNorm: 764227 1 Tablet(s) PO five times per day 5x daily 01/17/2018 01/27/2018 Inactive mupirocin 2 % topical ointment RxNorm: 669922 1 Application TOP BID 01/17/2018 01/26/2018 Inactive estradiol 0.1 mg/24 hr semiweekly transdermal patch RxNorm: 953272 1 Patch TD BIW No Start Date Active Protonix 40 mg tablet,delayed release RxNorm: 677423 1 Tablet(s) PO daily No Start Date 03/20/2018 Inactive acyclovir 800 mg tablet RxNorm: 136987 1 Tablet(s) PO five times per day No Start Date 01/16/2018 Inactive clindamycin HCl oral RxNorm: 2582 oral No Start Date 01/27/2018 Inactive prednisone 10 mg tablet RxNorm: 535045 Tablet(s) PO No Start Date 01/29/2018 Inactive 6,5,4,3,2,1 promethazine 25 mg tablet RxNorm: 820924 1 Tablet(s) PO TID as needed No Start Date 07/30/2018 Inactive Medication Administered Medication Codes Instructions Start Date Status Kenalog 40 mg/mL suspension for injection RxNorm: 1995397 Milliliter 11/27/2018 No longer Active Immunizations Vaccine [...] Item Item Code Result Date Influenza A+B [id number] Influ A+B Negative 11/27/2018 Review of Systems [...] 1: 120/82 Code: 8480-6 BMI: 22.0 Code: 03451-5 Heart Rate 1: 90 bpm Height: 4'11" SpO2: 99% Weight: 109 lbs 03/11/2018 Blood Pressure 1: 124/80 Code: 8480-6 BMI: 21.0 Code: 82516-5 Heart Rate 1: 66 bpm Height: 4'11" SpO2: 97% Temperature: 36.8 (C) / 98.3 (F) Weight: 104 lbs 01/28/2018 Height: Temperature: 36.7 (C) / 98.0 (F) Weight: 01/17/2018 Blood Pressure 1: 110/82 Code: 8480-6 BMI: 21.0 Code: 12734-0 Heart Rate 1: 66 bpm Height: 4'11" [...] data Encounters Encounter Performer Location Codes Date 44587 EST. PATIENT, LEVEL III Diagnosis: Acute laryngopharyngitis[ICD10: J06.0] Diagnosis: Other allergic rhinitis[ICD10: J30.89] Darlene Garcia MD, [facility] CPT- 4: 51308 11/27/2018 (65296) 86319 EST. PATIENT, LEVEL III Diagnosis: Cough[ICD10: R05] Diagnosis: Gastro-esophageal reflux disease without esophagitis[ICD10: K21.9] Rebeka Garcia MD, [facility] CPT-4: 86133 03/11/2018 98209 EST. PATIENT, LEVEL II Diagnosis: Follicular disorder, unspecified[ICD10: L73.9] Diagnosis: Rash and other nonspecific skin eruption[ICD10: R21] [facility] CPT-4: 87222 01/28/2018 OFFICE VISIT, NEW - LEVEL 3 Diagnosis: Zoster without complications[ICD10: B02.9] Diagnosis: Cutaneous abscess of buttock[ICD10: L02.31] [facility] CPT-4: 36137 01/17/2018 Plan of Care Planned Activity Notes [...] spray. 11/27/2018 Appointment: Darlene Mosley WPtel: [facility] [place] (30 min) Complex 11/27/2018 Appointment: Darlene Mosley WPtel: [address] [place] [address] (15 min) Moderate 11/27/2018 Patient Education: Patient Medication Summary Completed 11/27/2018 Appointment: Rebeka Burgos WPtel: [address] [place], [place] [phone] (15 min) Moderate 08/01/2018 Visit Plan: Esophageal Reflux - the patient has been counseled against excessive intake of caffeine, spicy foods, peppermint, and cinnamon - all of which can exacerbate esophageal reflux. The patient is to take med ications as prescribed and call the office if the symptoms are not improving. 03/11/2018 Appointment: Rebeka Burgos WPtel: [address] [place], [place] [phone] (15 min) Moderate 03/11/2018 Patient Education: Patient Medication Summary Completed 03/11/2018 Visit Plan: Folliculitis-culture obtained today in the office- rx sent to patient's pharmacy and instructed on use-call if symptoms do not resolve 01/28/2018 Appointment: Rebeka Burgos WPtel: [facility] [phone] (15 min) Moderate 01/28/2018 Patient Education: Patient Medication Summary Completed 01/28/2018 Visit Plan: Shingles-continue acyclovir as directed-return if symptoms do not resolve as discussed Abscess of buttock-continue clindamycin- return if symptoms do not resolve completely 01/17/2018 Appointment: [facility] [address] [phone] [place] New Patient 01/17/2018 Patient Education: Patient [...]
--- OUTSIDE RECORDS SUMMARY | 2019-04-01 12:26 | XMS REPORT | CCD ---
Author Author Rebeka Burgos Organization [facility] Address [address] [place] [address] Phone Care Team Providers Care Bird Sitter Name Role Phone PP Unavailable CCM Unavailable [...] Start Date Stop Date Status Fill Instructions acyclovir 400 mg tablet RxNorm: 980048 2 Tablet(s) PO QID 11/22/2018 12/01/2018 Active acyclovir 400 mg tablet RxNorm: 666791 2 Tablet(s) PO QID 11/22/2018 11/21/2018 Inactive Diflucan 150 mg tablet RxNorm: 440426 TAKE ONE TABLET BY MOUTH DAILY 10/04/2018 10/07/2018 Inactive Patient should contact Prescriber first promethazine 25 mg tablet RxNorm: 465439 1 Tablet(s) PO TID as needed 07/31/2018 No Stop Date Active Zofran ODT 4 mg disintegrating tablet RxNorm: 845391 1 Tablet(s) PO Q6 as needed 07/30/2018 09/27/2018 Inactive Zofran ODT 4 mg disintegrating tablet RxNorm: 098462 1 Tablet(s) PO Q6 as needed 07/30/2018 07/29/2018 Inactive Diflucan 150 mg tablet RxNorm: 883074 1 Tablet(s) PO daily 05/15/2018 05/21/2018 Inactive Protonix 40 mg tablet,delayed release RxNorm: 579229 1 Tablet(s) PO daily 03/21/2018 08/17/2018 Inactive Zofran 4 mg tablet RxNorm: 637344 1 Tablet(s) PO Q6 PRN 03/11/2018 07/29/2018 Inactive Carafate 1 gram tablet RxNorm: 082095 1 Tablet(s) PO AC & HS 03/11/2018 03/24/2018 Inactive prednisone 10 mg tablet RxNorm: 293529 Tablet(s) PO 01/30/2018 No Stop Date Active 6,5,4,3,2,1 doxycycline hyclate 100 mg tablet RxNorm: 064246 1 Tablet(s) PO BID 01/28/2018 02/03/2018 Inactive Diflucan 150 mg tablet RxNorm: 830544 1 Tablet(s) PO daily 01/28/2018 02/03/2018 Inactive clindamycin HCl 300 mg capsule RxNorm: 584200 1 Capsule(s) PO TID 01/17/2018 01/19/2018 Inactive acyclovir 800 mg tablet RxNorm: 251037 1 Tablet(s) PO five times per day 5x daily 01/17/2018 01/27/2018 Inactive mupirocin 2 % topical ointment RxNorm: 114180 1 Application TOP BID 01/17/2018 01/26/2018 Inactive estradiol 0.1 mg/24 hr semiweekly transdermal patch RxNorm: 970795 1 Patch TD BIW No Start Date Active Protonix 40 mg tablet,delayed release RxNorm: 427380 1 Tablet(s) PO daily No Start Date 03/20/2018 Inactive acyclovir 800 mg tablet RxNorm: 583840 1 Tablet(s) PO five times per day No Start Date 01/16/2018 Inactive clindamycin HCl oral RxNorm: 2582 oral No Start Date 01/27/2018 Inactive prednisone 10 mg tablet RxNorm: 257730 Tablet(s) PO No Start Date 01/29/2018 Inactive 6,5,4,3,2,1 promethazine 25 mg tablet RxNorm: 267987 1 Tablet(s) PO TID as needed No Start Date 07/30/2018 Inactive Medication Administered No Medication Administered data Immunizations Vaccine Codes Date Status Tetanus, Diptheria, Pertussis CVX: 113 04/24/2016 completed Tetanus/Diptheria CVX: 113 04/24/2016 completed Assessments Condition Codes Effective Dates Gastro-esophageal reflux disease without esophagitis ICD-10: K21.9 ICD-9: 530.81 03/11/2018 Cough ICD-10: R05 ICD-9: 786.2 03/11/2018 Follicular disorder, unspecified ICD-10: L73.9 ICD-9: 704.8 01/28/2018 Rash and other nonspecific skin eruption ICD-10: R21 ICD-9: 782.1 01/28/2018 Cutaneous abscess of buttock ICD-10: L02.31 ICD-9: 682.5 01/17/2018 Zoster without complications ICD-10: B02.9 ICD-9: 053.9 01/17/2018 Reason For Visit Reason For Visit [...] Date Vital 03/11/2018 Blood Pressure 1: 124/80 Code: 8480-6 BMI: 21.0 Code: 12145-0 Heart Rate 1: 66 bpm Height: 4'11" SpO2: 97% Temperature: 36.8 (C) / 98.3 (F) Weight: 104 lbs 01/28/2018 Height: Temperature: 36.7 (C) / 98.0 (F) Weight: 01/17/2018 Blood Pressure 1: 110/82 Code: 8480-6 BMI: 21.0 Code: 80390-0 Heart Rate 1: 66 bpm Height: 4'11" [...] data Encounters Encounter Performer Location Codes Date (53998) 14467 EST. PATIENT, LEVEL III Diagnosis: Cough[ICD10: R05] Diagnosis: Gastro-esophageal reflux disease without esophagitis[ICD10: K21.9] [facility] CPT-4: 20999 03/11/2018 35951 EST. PATIENT, LEVEL II Diagnosis: Follicular disorder, unspecified[ICD10: L73.9] Diagnosis: Rash and other nonspecific skin eruption[ICD10: R21] Rebeka Garcia MD, [facility] CPT-4: 36715 01/28/2018 OFFICE VISIT, NEW - LEVEL 3 Diagnosis: Zoster without complications[ICD10: B02.9] Diagnosis: Cutaneous abscess of buttock[ICD10: L02.31] Rebeka Garcia MD, [facility] CPT-4: 78594 01/17/2018 Plan of Care Planned Activity Notes Codes Status Date Appointment: Rebeka Burgos WPtel: [address] [place], [place] [phone] (15 min) Moderate 08/01/2018 Visit Plan: Esophageal Reflux - the patient has been counseled against excessive intake of caffeine, spicy foods, peppermint, and cinnamon - all of which can exacerbate esophageal reflux. The patient is to take med ications as prescribed and call the office if the symptoms are not improving. 03/11/2018 Appointment: Rebeka Burgos WPtel: [address] [place] [address] (15 min) Moderate 03/11/2018 Patient Education: Patient Medication Summary Completed 03/11/2018 Visit Plan: Folliculitis-culture obtained today in the office- rx sent to patient's pharmacy and instructed on use-call if symptoms do not resolve 01/28/2018 Appointment: Rebeka Burgos WPtel: [address] [place], [place] [phone] (15 min) Moderate 01/28/2018 Patient Education: Patient Medication Summary Completed 01/28/2018 Visit Plan: Shingles-continue acyclovir as directed-return if symptoms do not resolve as discussed Abscess of buttock-continue clindamycin- return if symptoms do not resolve completely 01/17/2018 Appointment: Rebeka Burgos WPtel: [address] [place], [place] [phone] [place] [address] New Patient 01/17/2018 Patient Education: Patient Medication [...]
--- OUTSIDE RECORDS SUMMARY | 2019-04-01 12:26 | XMS REPORT | CCD ---
Author Author Rebeka Burgos Organization [facility] Address [address] [place] [address] Phone Care Team Providers Care Twill Cutter Name Role Phone PP Unavailable CCM Unavailable [...] Fill Instructions acyclovir 400 mg tablet RxNorm: 660620 2 Tablet(s) PO QID 11/22/2018 12/01/2018 Active acyclovir 400 mg tablet RxNorm: 419906 2 Tablet(s) PO QID 11/22/2018 11/21/2018 Inactive Diflucan 150 mg tablet RxNorm: 094536 TAKE ONE TABLET BY MOUTH DAILY 10/04/2018 10/07/2018 Inactive Patient should contact Prescriber first promethazine 25 mg tablet RxNorm: 813972 1 Tablet(s) PO TID as needed 07/31/2018 No Stop Date Active Zofran ODT 4 mg disintegrating tablet RxNorm: 652989 1 Tablet(s) PO Q6 as needed 07/30/2018 09/27/2018 Inactive Zofran ODT 4 mg disintegrating tablet RxNorm: 045990 1 Tablet(s) PO Q6 as needed 07/30/2018 07/29/2018 Inactive Diflucan 150 mg tablet RxNorm: 950285 1 Tablet(s) PO daily 05/15/2018 05/21/2018 Inactive Protonix 40 mg tablet,delayed release RxNorm: 471694 1 Tablet(s) PO daily 03/21/2018 08/17/2018 Inactive Zofran 4 mg tablet RxNorm: 101808 1 Tablet(s) PO Q6 PRN 03/11/2018 07/29/2018 Inactive Carafate 1 gram tablet RxNorm: 117384 1 Tablet(s) PO AC & HS 03/11/2018 03/24/2018 Inactive prednisone 10 mg tablet RxNorm: 847587 Tablet(s) PO 01/30/2018 No Stop Date Active 6,5,4,3,2,1 doxycycline hyclate 100 mg tablet RxNorm: 480787 1 Tablet(s) PO BID 01/28/2018 02/03/2018 Inactive Diflucan 150 mg tablet RxNorm: 769012 1 Tablet(s) PO daily 01/28/2018 02/03/2018 Inactive clindamycin HCl 300 mg capsule RxNorm: 310254 1 Capsule(s) PO TID 01/17/2018 01/19/2018 Inactive acyclovir 800 mg tablet RxNorm: 667656 1 Tablet(s) PO five times per day 5x daily 01/17/2018 01/27/2018 Inactive mupirocin 2 % topical ointment RxNorm: 364488 1 Application TOP BID 01/17/2018 01/26/2018 Inactive estradiol 0.1 mg/24 hr semiweekly transdermal patch RxNorm: 009741 1 Patch TD BIW No Start Date Active Protonix 40 mg tablet,delayed release RxNorm: 705542 1 Tablet(s) PO daily No Start Date 03/20/2018 Inactive acyclovir 800 mg tablet RxNorm: 056658 1 Tablet(s) PO five times per day No Start Date 01/16/2018 Inactive clindamycin HCl oral RxNorm: 2582 oral No Start Date 01/27/2018 Inactive prednisone 10 mg tablet RxNorm: 589916 Tablet(s) PO No Start Date 01/29/2018 Inactive 6,5,4,3,2,1 promethazine 25 mg tablet RxNorm: 100623 1 Tablet(s) PO TID as needed No [...] Item Item Code Result Date Influenza A+B [id number] Influ A+B Negative 11/27/2018 Review of Systems [...] 1: 124/80 Code: 8480-6 BMI: 21.0 Code: 29646-1 Heart Rate 1: 66 bpm Height: 4'11" SpO2: 97% Temperature: 36.8 (C) / 98.3 (F) Weight: 104 lbs 01/28/2018 Height: Temperature: 36.7 (C) / 98.0 (F) Weight: 01/17/2018 Blood Pressure 1: 110/82 Code: 8480-6 BMI: 21.0 Code: 60668-5 Heart Rate 1: 66 bpm Height: 4'11" [...] data Encounters Encounter Performer Location Codes Date (92707) 80267 EST. PATIENT, LEVEL III Diagnosis: Cough[ICD10: R05] Diagnosis: Gastro-esophageal reflux disease without esophagitis[ICD10: K21.9] [facility] CPT-4: 13261 03/11/2018 16057 EST. PATIENT, LEVEL II Diagnosis: Follicular disorder, unspecified[ICD10: L73.9] Diagnosis: Rash and other nonspecific skin eruption[ICD10: R21] [facility] CPT-4: 27964 01/28/2018 OFFICE VISIT, NEW - LEVEL 3 Diagnosis: Zoster without complications[ICD10: B02.9] Diagnosis: Cutaneous abscess of buttock[ICD10: L02.31] Rebeka Garcia MD, [facility] CPT-4: 30224 01/17/2018 Plan of Care Planned Activity Notes Codes Status Date Appointment: Rebeka Burgos WPtel: [address] [place] [address] (15 min) Moderate 08/01/2018 Visit Plan: Esophageal Reflux - the patient has been counseled against excessive intake of caffeine, spicy foods, peppermint, and cinnamon - all of which can exacerbate esophageal reflux. The patient is to take med ications as prescribed and call the office if the symptoms are not improving. 03/11/2018 Appointment: Rebeka Burgos WPtel: [address] [place], [place] [phone] (15 min) Moderate 03/11/2018 Patient Education: Patient Medication Summary Completed 03/11/2018 Visit Plan: Folliculitis-culture obtained today in the office- rx sent to patient's pharmacy and instructed on use-call if symptoms do not resolve 01/28/2018 Appointment: Rebeka Burgos WPtel: [address] [place], [place] [phone] (15 min) Moderate 01/28/2018 Patient Education: Patient Medication Summary Completed 01/28/2018 Visit Plan: Shingles-continue acyclovir as directed-return if symptoms do not resolve as discussed Abscess of buttock-continue clindamycin- return if symptoms do not resolve completely 01/17/2018 Appointment: Rebeka Burgos WPtel: [address] [place], [place] [phone] [place] New Patient 01/17/2018 Patient Education: Patient [...]
--- OUTSIDE RECORDS SUMMARY | 2019-04-01 12:27 | XMS REPORT | CCD ---
Author Author Rebeka Burgos Organization [facility] Address [address] [place] [address] Phone Care Team Providers Care Material Flow Analyst Name Role Phone PP Unavailable CCM Unavailable [...] Fill Instructions Diflucan 150 mg tablet RxNorm: 807184 TAKE ONE TABLET BY MOUTH DAILY 10/04/2018 10/07/2018 Active Patient should contact Prescriber first promethazine 25 mg tablet RxNorm: 098303 1 Tablet(s) PO TID as needed 07/31/2018 No Stop Date Active Zofran ODT 4 mg disintegrating tablet RxNorm: 420079 1 Tablet(s) PO Q6 as needed 07/30/2018 09/27/2018 Inactive Zofran ODT 4 mg disintegrating tablet RxNorm: 623693 1 Tablet(s) PO Q6 as needed 07/30/2018 07/29/2018 Inactive Diflucan 150 mg tablet RxNorm: 688615 1 Tablet(s) PO daily 05/15/2018 05/21/2018 Inactive Protonix 40 mg tablet,delayed release RxNorm: 423831 1 Tablet(s) PO daily 03/21/2018 08/17/2018 Inactive Zofran 4 mg tablet RxNorm: 212120 1 Tablet(s) PO Q6 PRN 03/11/2018 07/29/2018 Inactive Carafate 1 gram tablet RxNorm: 020211 1 Tablet(s) PO AC & HS 03/11/2018 03/24/2018 Inactive prednisone 10 mg tablet RxNorm: 058443 Tablet(s) PO 01/30/2018 No Stop Date Active 6,5,4,3,2,1 doxycycline hyclate 100 mg tablet RxNorm: 680930 1 Tablet(s) PO BID 01/28/2018 02/03/2018 Inactive Diflucan 150 mg tablet RxNorm: 208783 1 Tablet(s) PO daily 01/28/2018 02/03/2018 Inactive clindamycin HCl 300 mg capsule RxNorm: 850661 1 Capsule(s) PO TID 01/17/2018 01/19/2018 Inactive acyclovir 800 mg tablet RxNorm: 387131 1 Tablet(s) PO five times per day 5x daily 01/17/2018 01/27/2018 Inactive mupirocin 2 % topical ointment RxNorm: 188950 1 Application TOP BID 01/17/2018 01/26/2018 Inactive estradiol 0.1 mg/24 hr semiweekly transdermal patch RxNorm: 506008 1 Patch TD BIW No Start Date Active Protonix 40 mg tablet,delayed release RxNorm: 947177 1 Tablet(s) PO daily No Start Date 03/20/2018 Inactive acyclovir 800 mg tablet RxNorm: 059677 1 Tablet(s) PO five times per day No Start Date 01/16/2018 Inactive clindamycin HCl oral RxNorm: 2582 oral No Start Date 01/27/2018 Inactive prednisone 10 mg tablet RxNorm: 115318 Tablet(s) PO No Start Date 01/29/2018 Inactive 6,5,4,3,2,1 promethazine 25 mg tablet RxNorm: 850505 1 Tablet(s) PO TID as needed No [...] 1: 124/80 Code: 8480-6 BMI: 21.0 Code: 42453-3 Heart Rate 1: 66 bpm Height: 4'11" SpO2: 97% Temperature: 36.8 (C) / 98.3 (F) Weight: 104 lbs 01/28/2018 Height: Temperature: 36.7 (C) / 98.0 (F) Weight: 01/17/2018 Blood Pressure 1: 110/82 Code: 8480-6 BMI: 21.0 Code: 03223-4 Heart Rate 1: 66 bpm Height: 4'11" [...] data Encounters Encounter Performer Location Codes Date (52373) 55797 EST. PATIENT, LEVEL III Diagnosis: Cough[ICD10: R05] Diagnosis: Gastro-esophageal reflux disease without esophagitis[ICD10: K21.9] [facility] CPT-4: 42154 03/11/2018 12497 EST. PATIENT, LEVEL II Diagnosis: Follicular disorder, unspecified[ICD10: L73.9] Diagnosis: Rash and other nonspecific skin eruption[ICD10: R21] [facility] CPT-4: 81241 01/28/2018 OFFICE VISIT, NEW - LEVEL 3 Diagnosis: Zoster without complications[ICD10: B02.9] Diagnosis: Cutaneous abscess of buttock[ICD10: L02.31] Rebeka Garcia MD, [facility] CPT-4: 85683 01/17/2018 Plan of Care Planned Activity Notes Codes Status Date Appointment: Rebeka Burgos WPtel: [address] [place] [address] (15 min) Moderate 08/01/2018 Visit Plan: Esophageal Reflux - the patient has been counseled against excessive intake of caffeine, spicy foods, peppermint, and cinnamon - all of which can exacerbate esophageal reflux. The patient is to take med ications as prescribed and call the office if the symptoms are not improving. 03/11/2018 Appointment: Rebeka Burgos WPtel: [address] [place] [address] (15 min) Moderate 03/11/2018 Patient Education: Patient Medication Summary Completed 03/11/2018 Visit Plan: Folliculitis-culture obtained today in the office- rx sent to patient's pharmacy and instructed on use-call if symptoms do not resolve 01/28/2018 Appointment: Rebeka Burgos WPtel: [address] [place], [place] [phone] (15 min) Moderate 01/28/2018 Patient Education: Patient Medication Summary Completed 01/28/2018 Visit Plan: Shingles-continue acyclovir as directed-return if symptoms do not resolve as discussed Abscess of buttock-continue clindamycin- return if symptoms do not resolve completely 01/17/2018 Appointment: Rebeka Burgos WPtel: [address] [place], [place] [phone] New Patient 01/17/2018 Patient Education: Patient Medication [...]
--- OUTSIDE RECORDS SUMMARY | 2019-04-01 12:27 | XMS REPORT ---
Author Author Migration, Doctor Organization [facility] Address Unknown Phone Unavailable Care Team Providers Care Timber Appraiser Name Role Phone Migration, Doctor Unavailable Unavailable PROBLEMS Type Condition ICD9-CM Code OET23-TC Code Onset Dates Condition Status SNOMED Code Problem Urinary tract infection, site not specified 599.0 Active 38173622 ALLERGIES No Information ENCOUNTERS Encounter Location Date Diagnosis [facility] [address] [address] Jul, Encounter for pre-employment examination Z02.1 and Visit for TB skin test Z11.1 [facility] [address] [address] Dec, [facility] [address] [address] Dec, Herpes zoster without complication B02.9 [facility] [address] [address] Dec, [facility] [id number] [place] [phone] Dec, Acute folliculitis L73.9 [facility] [id number] [place] [phone] Aug, [facility] [id number] [place] [phone] Dec, [place] [address] [address] Dec, [facility] [address] [address] May, [facility] [address] [address] May, [facility] [address] [facility] [id number] [place] [address] Jul, [facility] [address] [facility] [id number] [place] [address] Jul, IMMUNIZATIONS No Known Immunizations SOCIAL HISTORY Never Assessed REASON FOR VISIT [facility] PLAN OF CARE VITAL SIGNS MEDICATIONS No Known Medications RESULTS No Results PROCEDURES No Known procedures INSTRUCTIONS MEDICATIONS ADMINISTERED No Known Medications MEDICAL (GENERAL) HISTORY Type Description Date Medical History endometriosis Medical History peptic ulcer disease Surgical History hysterectomy total 2017 Surgical History appendecotmy 2014 Surgical History gallbladder 2014 Surgical History etopic 1999 Surgical History Laproscopic surgery x 2 Surgical History x 2 Hospitalization History surgical procedures
--- OUTSIDE RECORDS SUMMARY | 2019-04-01 12:28 | XMS REPORT ---
Author Author Migration, Doctor Organization [facility] Address Unknown Phone Unavailable Care Team Providers Care Pillow Agent Name Role Phone Migration, Doctor Unavailable Unavailable PROBLEMS Type Condition ICD9-CM Code [id number] Code Onset Dates Condition Status SNOMED Code Problem Urinary tract infection, site not specified 599.0 Active [id number] ALLERGIES No Information ENCOUNTERS Encounter Location Date Diagnosis [facility] [address] [address] Jul, Encounter for pre-employment examination Z02.1 and Visit for TB skin test Z11.1 [facility] [address] [address] Dec, [facility] [address] [address] Dec, Herpes zoster without complication B02.9 [facility] [address] [address] Dec, [facility] [id number] [place] [id number] Dec, Acute folliculitis L73.9 [facility] [id number] [place] [id number] Aug, [facility] [id number] [place] [id number] Dec, [place] [address] [address] Dec, [facility] [address] [address] May, [facility] [address] [address] May, [facility] [address] [facility] [id number] [place] [address] Jul, [facility] [address] [facility] [id number] [place] [address] Jul, IMMUNIZATIONS No Known Immunizations SOCIAL HISTORY Never Assessed REASON FOR VISIT [place] [place] VITAL SIGNS MEDICATIONS Medication Instructions Dosage Frequency Start Date End Date Duration Status Bactrim DS 800-160 mg take 1 tablet by oral route every 12 hours for 5 days for 3 days May, Active Nexium by oral route May, Active RESULTS No Results PROCEDURES No Known procedures INSTRUCTIONS MEDICATIONS ADMINISTERED No Known Medications MEDICAL (GENERAL) HISTORY Type Description Date Medical History endometriosis Medical History peptic ulcer disease Surgical History hysterectomy total 2016 Surgical History appendecotmy 2013 Surgical History gallbladder 2013 Surgical History etopic 1999 Surgical History Laproscopic surgery x 2 Surgical History x 2 Hospitalization History surgical procedures
[2019-04-01 12:30] VITALS: BP 128/87
--- OUTSIDE RECORDS SUMMARY | 2019-04-01 12:31 | XMS REPORT | Continuity of Care Document ---
Author Organization Unknown Address Unknown Allergies Active Description Code Type Severity Reaction Onset Reported/Identified Relationship to Patient Clinical Status Yes No Known Drug Allergies [id number] Drug Allergy Unknown N/A 01/10/2017 Medications There is no data. Problems Date Dx Coded Attending Type Code Diagnosis Diagnosed By 03/02/2010 MAGY JACKSON DDS V72.42 TEST POSITIVE RESULT 03/02/2010 MAE CANALES DO V72.42 TEST POSITIVE RESULT 10/19/2010 Ot 648.11 THYROID DYSFUNC- DELIVER 10/19/2010 Ot 654.21 PREV DELIVRY W/ OR W/O MENT ANT 10/19/2010 Ot V06.1 [id number], COMBINED [ 10/19/2010 Ot V27.0 DELIVER-SINGLE LIVEBORN 02/11/2013 AUGUSTA AYON DO Ot 530.81 [...] DO Ot 473.9 CHRONIC SINUSITIS NOS 01/28/2014 AUGUSTA AYON DO Ot 525.9 DENTAL DISORDER NOS 06/20/2014 MAE CANALES DO 599.0 URINARY TRACT INFECTION 07/23/2014 TAMMY FRANCO MD Ot 540.9 ACUTE APPENDICITIS NOS 07/23/2014 TAMMY FRANCO MD Ot 614.6 FEM PELVIC PERITON ADH-POST-OP/INF 07/23/2014 TAMMY FRANCO MD Ot 617.9 ENDOMETRIOSIS NOS 07/23/2014 TAMMY FRANCO MD, Ot 620.2 OVARIAN CYST NEC/NOS 07/23/2014 TAMMY [...] BERNARD MCNEILL, TEO Oviedo Ot 789.06 09/14/2014 BERNARD MCNEILL, TEO [place] Ot 789.06 09/15/2014 BERNARD MCNEILL, TEO [place] Ot 789.06 09/15/2014 BERNARD MCNEILL, TEO [place] Ot 789.06 05/21/2016 AUGUSTA AYON DO Ot [...] M54.5 LOW BACK PAIN 08/16/2016 ALIYA ELY ROLLING MACHINE OPERATOR Ot N83.201 UNSPECIFIED OVARIAN CYST, RIGHT SIDE 08/16/2016 ALIYA ELY ROLLING MACHINE OPERATOR Ot N83.202 UNSPECIFIED OVARIAN CYST, LEFT SIDE 08/18/2016 SHELLYESTHELA BABIN DO Ot M54.5 LOW BACK PAIN 08/18/2016 SHELLYESTHELA BABIN DO Ot R10.31 RIGHT LOWER QUADRANT PAIN 08/18/2016 SHELLY ESTHELA BONILLA Ot R10.32 LEFT LOWER QUADRANT PAIN 08/18/2016 ALIYA ELY APRN Ot M54.5 LOW BACK PAIN 08/18/2016 ALIYA ELY APRN Ot N83.201 UNSPECIFIED OVARIAN CYST, RIGHT SIDE 08/18/2016 ALIYA ELY APRN Ot N83.202 UNSPECIFIED OVARIAN CYST, LEFT SIDE 12/01/2016 KASH GUADALUPE DO Ot K21.9 GASTRO-ESOPHAGEAL REFLUX DISEASE WITHOUT 12/01/2016 GUADALUPEKASH HANNAH DO Ot K92.1 MELENA 12/01/2016 KASH GUADALUPE DO Ot Z01.818 ENCOUNTER FOR OTHER PREPROCEDURAL EXAMIN 12/01/2016 KASH GUADALUPE DO Ot K21.9 GASTRO-ESOPHAGEAL REFLUX DISEASE WITHOUT 12/01/2016 GUADALUPEKASH HANNAH DO D Ot K92.1 MELENA 12/01/2016 KASH GUADALUPE DO Ot Z01.818 ENCOUNTER FOR OTHER PREPROCEDURAL EXAMIN 12/05/2016 GUADALUPEAKSH HANNAH DO Ot V72.84 EXAM PRE-OPERATIVE NOS [...] [place] Ot 789.06 ABDOMINAL PAIN, EPIGASTRIC 12/05/2016 JSOH MCNEILL, GELY Boone Ot 787.02 NAUSEA ALONE 12/05/2016 JOSH MCNEILL, GELY Boone Ot 789.06 ABDOMINAL PAIN, EPIGASTRIC 12/05/2016 JOAN MCNEILL, TAMMY Guillaume Ot 285.9 ANEMIA NOS 12/05/2016 TAMMY FRANCO [...] GUADALUPE DO D Ot K92.1 MELENA 12/06/2016 KASH GUADALUPE DO D Ot K21.9 GASTRO-ESOPHAGEAL REFLUX DISEASE WITHOUT 12/06/2016 GUADALUPEKEISHA HANNAH DOTT D Ot K31.7 POLYP OF STOMACH AND DUODENUM 12/06/2016 KASH GUADALUPE DO Ot K44.9 DIAPHRAGMATIC HERNIA WITHOUT OBSTRUCTION 12/06/2016 KASH GUADALUPE DO D Ot K92.1 MELENA 12/11/2016 KASH GUADALUPE DO D Ot K21.9 GASTRO-ESOPHAGEAL REFLUX DISEASE WITHOUT 12/11/2016 GUADALUPEKASH HANNAH DO D Ot K31.7 POLYP OF STOMACH AND [...] DO Ot 789.06 ABDOMINAL PAIN, EPIGASTRIC 01/10/2017 KSAH GUADALUPE DO Ot 793.3 NOSP (ABN) FINDINGS [...] PELVIC PERITONEAL ADHESIONS (POST 01/18/2017 TAMMY FRANCO MD Ot N80.2 ENDOMETRIOSIS OF FALLOPIAN TUBE 01/18/2017 TAMMY FRANCO MD, Ot N83.12 CORPUS LUTEUM [...] AND FREQUENT MENSTRUATION WITH 01/26/2017 TAMMY FRANCO MD, Ot N93.8 OTHER SPECIFIED ABNORMAL UTERINE AND VAG 03/04/2017 RANDOLPH LARA MD Ot K21.9 GASTRO-ESOPHAGEAL REFLUX DISEASE WITHOUT 03/04/2017 RANDOLPH LARA MD Ot R10.13 EPIGASTRIC PAIN 03/04/2017 RANDOLPH LARA MD Ot R10.31 RIGHT LOWER QUADRANT PAIN 03/04/2017 RANDOLPH LARA MD Ot Z90.49 ACQUIRED ABSENCE OF OTHER SPECIFIED PART 05/21/2017 KASH GUADALUPE DO Ot V72.84 EXAM PRE-OPERATIVE NOS 05/21/2017 TEO WAGNER MD Ot 787.01 NAUSEA WITH VOMITING 05/21/2017 TOE WAGNER MD Ot 789.01 ABDOMINAL PAIN, RIGHT [...] UNSP, NOT INTRACTABLE, WITHOUT 01/11/2018 RANDOLPH LARA MD, Ot K21.9 GASTRO-ESOPHAGEAL REFLUX DISEASE WITHOUT 01/11/2018 [...] GASTRO-ESOPHAGEAL REFLUX DISEASE WITHOUT 01/14/2018 RANDOLPH LARA MD Ot L02.31 CUTANEOUS ABSCESS OF BUTTOCK 01/14/2018 RANDOLPH LARA MD Ot Z87.19 PERSONAL HISTORY OF OTHER DISEASES OF TH 01/14/2018 RANDOLPH LARA MD, Ot Z87.448 PERSONAL HISTORY OF OTHER DISEASES OF UR 01/14/2018 RANDOLPH LARA MD, Ot Z87.59 PERSONAL HISTORY OF COMP OF PREG, CHLDBR 01/14/2018 RANDOLPH LARA MD Ot Z90.49 ACQUIRED ABSENCE OF OTHER SPECIFIED PART 01/14/2018 RANDOLPH LARA MD Ot Z90.710 ACQUIRED ABSENCE OF BOTH CERVIX AND UTER 02/14/2018 PAT MILES ROLLING MACHINE OPERATOR Ot R05 COUGH 02/26/2018 PAT MILES ROLLING MACHINE OPERATOR Ot R05 COUGH 09/22/2018 SAPNA IVAN MD Ot F41.9 ANXIETY DISORDER, UNSPECIFIED 09/22/2018 SAPNA IVAN MD Ot G43.909 MIGRAINE, UNSP, NOT INTRACTABLE, WITHOUT 09/22/2018 SAPNA IVAN MD Ot K21.9 GASTRO-ESOPHAGEAL REFLUX DISEASE WITHOUT 09/22/2018 SAPNA IVAN MD Ot L29.9 PRURITUS, UNSPECIFIED 09/22/2018 SAPNA IVAN MD Ot N94.819 VULVODYNIA, UNSPECIFIED 09/22/2018 SAPNA IVAN MD Ot Z86.19 PERSONAL HISTORY OF OTHER INFECTIOUS AND 09/22/2018 SAPNA IVAN MD Ot Z87.19 PERSONAL HISTORY OF OTHER DISEASES OF TH 09/22/2018 SAPNA IVAN MD Ot Z87.448 PERSONAL HISTORY OF OTHER DISEASES OF UR 09/22/2018 SAPNA IVAN MD Ot Z90.49 ACQUIRED ABSENCE OF OTHER SPECIFIED PART 09/22/2018 SAPNA IVAN MD Ot Z90.710 ACQUIRED ABSENCE OF BOTH CERVIX AND UTER 09/22/2018 SAPNA IVAN MD Ot Z98.890 OTHER SPECIFIED POSTPROCEDURAL STATES 09/23/2018 SAPNA IVAN MD Ot F41.9 ANXIETY DISORDER, UNSPECIFIED 09/23/2018 SAPNA IVAN MD Ot G43.909 MIGRAINE, UNSP, NOT INTRACTABLE, WITHOUT 09/23/2018 SAPNA IVAN MD Ot K21.9 GASTRO-ESOPHAGEAL REFLUX DISEASE WITHOUT 09/23/2018 SAPNA IVAN MD Ot L29.9 PRURITUS, UNSPECIFIED 09/23/2018 SAPNA IVAN MD Ot N94.819 VULVODYNIA, UNSPECIFIED 09/23/2018 SAPNA IVAN MD Ot Z86.19 PERSONAL HISTORY OF OTHER INFECTIOUS AND 09/23/2018 SAPNA IVAN MD Ot Z87.19 PERSONAL HISTORY OF OTHER DISEASES OF TH 09/23/2018 SAPNA IVAN MD Ot Z87.448 PERSONAL HISTORY OF OTHER DISEASES OF UR 09/23/2018 SAPNA IVAN MD Ot Z90.49 ACQUIRED ABSENCE OF OTHER SPECIFIED PART 09/23/2018 SAPNA IVAN MD Ot Z90.710 ACQUIRED ABSENCE OF BOTH CERVIX AND UTER 09/23/2018 SAPNA IVAN MD Ot Z98.890 OTHER SPECIFIED POSTPROCEDURAL STATES 09/27/2018 SAPNA IVAN MD Ot F41.9 ANXIETY DISORDER, UNSPECIFIED 09/27/2018 SAPNA IVAN MD Ot G43.909 MIGRAINE, UNSP, NOT INTRACTABLE, WITHOUT 09/27/2018 SAPNA IVAN MD Ot K21.9 GASTRO-ESOPHAGEAL REFLUX DISEASE WITHOUT 09/27/2018 SAPNA IVAN MD Ot L29.9 PRURITUS, UNSPECIFIED 09/27/2018 MONCHO MCNEILL, SAPNA [place] Ot N94.819 VULVODYNIA, UNSPECIFIED 09/27/2018 SAPNA IVAN MD Ot Z86.19 PERSONAL HISTORY OF OTHER INFECTIOUS AND 09/27/2018 SAPNA IVAN MD Ot Z87.19 PERSONAL HISTORY OF OTHER DISEASES OF TH 09/27/2018 SAPNA IVAN MD Ot Z87.448 PERSONAL HISTORY OF OTHER DISEASES OF UR 09/27/2018 SAPNA IVAN MD Ot Z90.49 ACQUIRED ABSENCE OF OTHER SPECIFIED PART 09/27/2018 SAPNA IVAN MD Ot Z90.710 ACQUIRED ABSENCE OF BOTH CERVIX AND UTER 09/27/2018 SAPNA IVAN MD Ot Z98.890 OTHER SPECIFIED POSTPROCEDURAL STATES 02/05/2019 BERNARD MCNEILL, TEO [place] Ot 787.01 NAUSEA WITH VOMITING 02/05/2019 BERNARD MCNEILL, TEO [place] Ot 789.01 ABDOMINAL PAIN, RIGHT UPPER QUADRANT 02/05/2019 TEO WAGNER MD Ot 789.06 ABDOMINAL PAIN, EPIGASTRIC 02/05/2019 TEO WAGNER MD Ot 787.01 NAUSEA WITH VOMITING 02/05/2019 TEO WAGNER MD Ot 789.01 ABDOMINAL PAIN, RIGHT UPPER QUADRANT 02/05/2019 BERNARD MCNEILL, TEO [place] Ot 789.06 ABDOMINAL PAIN, EPIGASTRIC 02/05/2019 GELY MORENO MD Ot 787.02 NAUSEA ALONE 02/05/2019 GELY MORENO MD Ot 789.06 ABDOMINAL PAIN, EPIGASTRIC 02/05/2019 TAMMY FRANCO MD Ot 285.9 ANEMIA NOS 02/05/2019 TAMMY FRANCO MD Ot 625.9 FEM GENITAL SYMPTOMS NOS 02/05/2019 TAMMY FRANCO MD, Ot V72.63 PRE-PROCEDURAL LABORATORY EXAMINATION 02/05/2019 TAMMY FRANCO MD, Ot V74.8 SCREEN-BACTERIAL DIS NEC 02/05/2019 TEO WAGNER MD Ot 789.06 ABDOMINAL PAIN, EPIGASTRIC 02/05/2019 KASH GUADALUPE DO Ot 787.02 NAUSEA ALONE 02/05/2019 KASH GUADALUPE DO Ot 789.06 ABDOMINAL PAIN, EPIGASTRIC 02/05/2019 KASH GUADALUPE DO Ot 793.3 NOSP (ABN) FINDINGS ON RADIOLOGICAL OT 02/05/2019 KASH GUADALUPE DO Ot 575.8 DIS OF GALLBLADDER NEC 02/05/2019 KASH GUADALUPE DO Ot V72.63 PRE-PROCEDURAL LABORATORY EXAMINATION 02/05/2019 GUADALUPEKASH HANNAH DO Ot V74.8 SCREEN-BACTERIAL DIS NEC 02/05/2019 JOAN MCNEILL, TAMMY Guillaume Ot Z12.31 ENCNTR SCREEN MAMMOGRAM FOR MALIGNANT NE 02/05/2019 PAT MILES ROLLING MACHINE OPERATOR Ot R05 COUGH 02/07/2019 NADYA FULLER SALES AGENT TRADING STAMPS Ot R10.10 UPPER ABDOMINAL PAIN, UNSPECIFIED 02/07/2019 NADYA FULLER SALES AGENT TRADING STAMPS Ot Z90.49 ACQUIRED ABSENCE OF OTHER SPECIFIED PART 02/20/2019 NADYA FULLER SALES AGENT TRADING STAMPS Ot R10.10 UPPER ABDOMINAL PAIN, UNSPECIFIED 02/20/2019 NADYA FULLER SALES AGENT TRADING STAMPS Ot Z90.49 ACQUIRED ABSENCE OF OTHER SPECIFIED PART 03/25/2019 KASH GUADALUPE DO Ot Z01.818 ENCOUNTER FOR OTHER PREPROCEDURAL EXAMIN 03/26/2019 KASH GUADALUPE DO Ot Z01.818 ENCOUNTER FOR OTHER PREPROCEDURAL EXAMIN 03/31/2019 KASH GUADALUPE DO Ot Z01.818 ENCOUNTER FOR OTHER PREPROCEDURAL EXAMIN Procedures Code Description Performed By Performed On 72.9 INSTRUMENT DELIVERY NOS 10/16/2010 74.1 LOW CERVICAL 10/16/2010 99.77 APPL/ADMIN OF AN ADHESION BARRIER SUBSTA 10/16/2010 91865 UA W/ CULTURE IF INDICATED 06/20/2014 Results [...] Automated erythrocyte mean corpuscular hemoglobin concentration measurement (mass/volume) 34 g/dL 32-36 Automated erythrocyte distribution width ratio 13.0 % 10.0- 14.5 Automated blood platelet count (count/volume) 239 10*3/uL [...] Blood monocytes automated count (number/volume) 0.3 10*3 0.0- 1.0 Automated eosinophil count 0.0 10*3/uL 0.0-0.3 Automated blood basophil count (count/volume) 0.0 10*3/uL 0.0-0.1 Complete urinalysis with reflex to culture - 05/21/16 21:24 Urine color determination YELLOW NRG Urine clarity determination SLIGHTLY CLOUDY NRG Urine pH measurement by test strip 5 5-9 Specific gravity of urine by test strip 1.025 1.016-1.022 Urine protein assay by test strip, semi-quantitative [...] sediment leukocyte count by microscopy (number/high power field) [HPF] NRG Bacteria detection in urine sediment [...] Serum or plasma aspartate aminotransferase measurement (enzymatic activity/volume) 25 U/L 5-34 Serum or plasma alanine aminotransferase measurement (enzymatic activity/volume) 32 U/L 0-55 Serum or plasma protein measurement (mass/volume) 6.8 g/dL 6.4-8.2 Serum or plasma albumin measurement (mass/volume) 4.4 g/dL 3.2-4.5 Serum or plasma amylase measurement (enzymatic activity/volume) - 05/21/16 21:24 Serum or plasma amylase measurement (enzymatic activity/volume) 70 U/L 25-125 Lipase - 05/21/16 21:24 Lipase 6 [...] Automated erythrocyte mean corpuscular hemoglobin concentration measurement (mass/volume) 35 g/dL 32-36 Automated erythrocyte distribution width ratio 13.2 % 10.0- 14.5 Automated blood platelet count (count/volume) 269 10*3/uL [...] Blood monocytes automated count (number/volume) 1.2 10*3 0.0- 1.0 Automated eosinophil count 0.1 10*3/uL 0.0-0.3 Automated [...] Serum or plasma aspartate aminotransferase measurement (enzymatic activity/volume) 13 U/L 5-34 Serum or plasma alanine aminotransferase measurement (enzymatic activity/volume) 14 U/L 0-55 Serum or plasma protein measurement (mass/volume) 7.1 g/dL 6.4-8.2 Serum or plasma albumin measurement (mass/volume) 4.5 g/dL 3.2-4.5 Lipase - 08/16/16 20:50 Lipase 20 U/L 8-78 Serum or plasma C reactive protein measurement (mass/volume) - 08/16/16 20:50 Serum or plasma C reactive protein measurement (mass/volume) 0.04 mg/dL 0.00-0.50 Complete urinalysis with reflex to culture - 08/16/16 20:54 Urine color determination YELLOW NRG Urine clarity determination SLIGHTLY CLOUDY NRG Urine pH measurement by test strip 6 5-9 Specific gravity of urine by test strip 1.025 1.016-1.022 Urine protein assay by test strip, semi-quantitative [...] sediment leukocyte count by microscopy (number/high power field) [HPF] NRG Bacteria detection in urine sediment [...] Automated erythrocyte mean corpuscular hemoglobin concentration measurement (mass/volume) 33 g/dL 32-36 Automated erythrocyte distribution width ratio 13.3 % 10.0- 14.5 Automated blood platelet count (count/volume) 253 10*3/uL [...] Blood monocytes automated count (number/volume) 1.0 10*3 0.0- 1.0 Automated eosinophil count 0.2 10*3/uL 0.0-0.3 Automated blood basophil count (count/volume) 0.0 10*3/uL 0.0-0.1 Complete urinalysis with reflex to culture - 08/17/16 22:23 Urine color determination YELLOW NRG Urine clarity determination CLEAR NRG Urine pH measurement by test strip 7 5-9 Specific gravity of urine by test strip 1.010 1.016-1.022 Urine protein assay by test strip, semi-quantitative [...] sediment leukocyte count by microscopy (number/high power field) RARE NRG Bacteria detection in urine sediment [...] Serum or plasma aspartate aminotransferase measurement (enzymatic activity/volume) 19 U/L 5-34 Serum or plasma alanine aminotransferase measurement (enzymatic activity/volume) 25 U/L 0-55 Serum or plasma protein [...] Automated erythrocyte mean corpuscular hemoglobin concentration measurement (mass/volume) 33 g/dL 32-36 Automated erythrocyte distribution width ratio 12.9 % 10.0- 14.5 Automated blood platelet count (count/volume) 327 10*3/uL [...] Blood monocytes automated count (number/volume) 0.8 10*3 0.0- 1.0 Automated eosinophil count 0.2 10*3/uL 0.0-0.3 Automated blood basophil count (count/volume) 0.1 10*3/uL 0.0-0.1 Methicillin resistant Staphylococcus aureus (MRSA) screening culture - 01/10/17 16:00 Methicillin resistant Staphylococcus aureus (MRSA) screening [...] Automated erythrocyte mean corpuscular hemoglobin concentration measurement (mass/volume) 33 g/dL 32-36 Automated erythrocyte distribution width ratio 13.7 % 10.0- 14.5 Automated blood platelet count (count/volume) 357 10*3/uL [...] Blood monocytes automated count (number/volume) 1.1 10*3 0.0- 1.0 Automated eosinophil count 0.2 10*3/uL 0.0-0.3 Automated [...] Serum or plasma aspartate aminotransferase measurement (enzymatic activity/volume) 18 U/L 5-34 Serum or plasma alanine aminotransferase measurement (enzymatic activity/volume) 24 U/L 0-55 Serum or plasma protein measurement (mass/volume) 7.2 g/dL 6.4-8.2 Serum or plasma albumin measurement (mass/volume) 3.9 g/dL 3.2-4.5 Serum or plasma amylase measurement (enzymatic activity/volume) - 03/04/17 05:03 Serum or plasma amylase measurement (enzymatic activity/volume) 61 U/L 25-125 Lipase - 03/04/17 05:03 Lipase 21 [...] 14:25 Bacteria identification in wound by culture [id number] NRG FREE TEXT EXTERNAL SENSITIVITY REPORTED 01/11 16:25 NRG QUANTITY OF GROWTH Moderate Growth NRG Bacterial susceptibility panel - 01/10/18 14:25 Oxacillin susceptibility test by minimum inhibitory concentration >= NRG Gentamicin susceptibility test by minimum inhibitory concentration <= NRG Clindamycin susceptibility test by minimum inhibitory concentration <= NRG Erythromycin susceptibility test by minimum inhibitory concentration >= NRG Trimethoprim/sulfamethoxazole susceptibility test by minimum inhibitoryconcentration R NRG Vancomycin susceptibility test by minimum inhibitory concentration <= NRG Levofloxacin susceptibility test by minimum inhibitory concentration 4 NRG Rifampin susceptibility test by minimum inhibitory concentration <= NRG Tetracycline susceptibility test by minimum inhibitory concentration <= NRG Ciprofloxacin susceptibility test by minimum inhibitory concentration R NRG Microscopic examination by wet preparation - 09/22/18 01:29 WET PREP RESULTS 09/22 01:45 BY Leeanne SHANKAR NRG Chlamydia trachomatis DNA detection by probe and signal amplification method - 09/22/18 01:29 Chlamydia trachomatis DNA detection by probe and target amplification method Not Detected Not Detected Neisseria gonorrhoeae DNA detection by probe and signal amplification method - 09/22/18 01:29 Gonorrhea amp DNA-urine Not Detected Not Detected Urine beta human chorionic gonadotropin (hCG) measurement - 09/22/18 01:32 Urine beta human chorionic gonadotropin (hCG) measurement NEGATIVE NEGATIVE Complete urinalysis with reflex to culture - 09/22/18 01:32 Urine color determination YELLOW NRG Urine clarity determination CLEAR NRG Urine pH measurement by test strip 6.5 5-9 Specific gravity of urine by test strip 1.020 1.016-1.022 Urine protein assay by test strip, semi-quantitative [...] NORMAL Urine leukocyte esterase detection by dipstick 3+ NEGATIVE Automated urine sediment erythrocyte count by microscopy (number/high power field) NONE NRG Automated urine sediment leukocyte count by microscopy (number/high power field) [HPF] NRG Bacteria detection in urine sediment by light microscopy MODERATE NRG Squamous epithelial cells detection in urine sediment by light microscopy 10-25 NRG Crystals detection in urine sediment by light microscopy NONE NRG Casts detection in urine sediment by light microscopy NONE NRG Mucus detection in urine sediment by light microscopy NEGATIVE NRG Complete urinalysis with reflex to culture YES NRG Bacterial urine culture - 09/22/18 01:32 Bacterial urine culture SEE COMMEN NRG COLONY COUNT . NRG Encounters ACCT No. Visit Date/Time Discharge Status Pt. Type Provider Facility Loc./Unit Complaint [id number] 06/20/2014 10:54:00 06/20/2014 23:59:59 CLS Outpatient MAE CANALES DO [id number] 05/28/2013 12:58:00 05/28/2013 23:59:59 CLS Outpatient MAGY JACKSON DDS [id number] 03/25/2019 05:36:00 03/25/2019 15:24:00 DIS Outpatient KASH GUADALUPE DO [facility] PREOP EGD [id number] 02/06/2019 07:40:00 02/06/2019 23:59:59 CLS Outpatient NADYA FULLER SALES AGENT TRADING STAMPS [facility] RAD ABD PAIN [id number] 09/21/2018 23:36:00 09/22/2018 02:05:00 DIS Emergency SAPNA IVAN MD [facility] ER YEAST INFECTION [id number] 02/13/2018 15:44:00 02/13/2018 23:59:59 CLS Outpatient PAT MILES APRN [facility] RAD ONGOING COUGH [id number] 01/11/2018 08:20:00 01/11/2018 09:43:00 DIS Emergency RANDOLPH LARA MD [facility] ER ABSCESS ON REAR END [id number] 01/10/2018 14:01:00 01/10/2018 14:49:00 DIS Emergency ALIYA ELY ROLLING MACHINE OPERATOR [facility] ER ABSCESS ON REAREND [id number] 07/06/2017 13:00:00 07/06/2017 23:59:59 CLS Preadmit JOAN MCNEILL, TAMMY Guillaume [facility] SDC CHRONIC PELVIC PAIN;ENDOMETRIOSIS; DUB [id number] 07/02/2017 12:00:00 07/02/2017 23:59:59 CLS Preadmit TAMMY FRANCO MD [facility] PREOP CHRONIC PELVIC PAIN;ENDOMETRIOSIS; DUB [id number] 05/29/2017 08:48:00 05/29/2017 23:59:59 CLS Outpatient TAMMY FRANCO MD [facility] RAD BASELINE [id number] 03/04/2017 04:50:00 03/04/2017 07:05:00 DIS Emergency RANDOLPH LARA MD [facility] ER VOMITING [id number] 01/12/2017 12:21:00 01/13/2017 17:15:00 DIS Outpatient TAMMY FRANCO MD [facility] [address] ENDOMETRIOSIS, CHRONIC PELVIC PAIN [id number] 01/10/2017 15:36:00 01/10/2017 16:20:00 DIS Outpatient TAMMY FRANCO MD [facility] PREOP CPP,HX ENDOMETRIOSIS [id number] 12/05/2016 09:25:00 12/05/2016 12:00:00 DIS Outpatient KASH GUADALUPE DO [facility] ENDO BLOOD IN STOOL;REFLUX [id number] 12/01/2016 09:30:00 12/01/2016 10:06:00 DIS Outpatient KASH GUADALUPE DO [facility] PREOP BLOOD IN STOOL;REFLUX [id number] 08/17/2016 22:03:00 08/18/2016 00:42:00 DIS Emergency ESTHELA BRAVO DO [facility] ER AB AND BACK PAIN [id number] 08/16/2016 20:37:00 08/16/2016 23:18:00 DIS Emergency ALIYA ELY APRN [facility] ER BACK/STOMACH PAIN [id number] 05/21/2016 20:53:00 05/21/2016 23:45:00 DIS Emergency AUGUSTA AYON DO [facility] ER POSSIBLE DEHYDRATION [id number] 08/18/2014 07:35:00 08/18/2014 15:15:00 DIS Outpatient KASH GUADALUPE DO [facility] [address] BILIARY DYSKINESA [id number] 08/11/2014 10:01:00 08/11/2014 23:59:59 CLS Outpatient GUADALUPE KASH BONILLA [facility] PREOP BILIARY DYSKINESA [id number] 08/07/2014 11:49:00 08/07/2014 23:59:59 CLS Outpatient GUADALUPE KASH BONILLA [facility] CARD EPIGASTRIC ABD PAIN [id number] 08/05/2014 13:20:00 08/05/2014 23:59:59 CLS Outpatient TEO WAGNER MD [facility] RAD ABDOMINAL PELVIC PAIN [id number] 07/22/2014 11:55:00 07/23/2014 08:40:00 DIS Outpatient TAMMY FRANCO MD [facility] [address] CHRONIC PELVIC PAIN [id number] 07/16/2014 14:29:00 07/16/2014 23:59:59 CLS Outpatient TAMMY FRANCO MD [facility] PREOP CHRONIC PELVIC PAIN [id number] 07/10/2014 12:07:00 07/10/2014 23:59:59 CLS Outpatient GELY MORENO MD [facility] RAD NAUSEA EPIGASTRIC PAIN [id number] 01/27/2014 23:23:00 01/28/2014 00:15:00 DIS Emergency AUGUSTA AYON DO [facility] ER DENTAL PAIN [id number] 11/09/2013 07:46:00 11/09/2013 09:33:00 DIS Emergency JONAS SMITH MD [facility] ER DENTAL PAIN [id number] 09/19/2013 11:51:00 09/19/2013 23:59:59 CLS Outpatient TEO WAGNER MD [facility] RAD RUQ PAIN [id number] 08/27/2013 09:39:00 08/27/2013 23:59:59 CLS Outpatient TEO WAGNER MD [facility] RAD RUQ PAIN,VOMITING [id number] 08/19/2013 14:08:00 08/19/2013 16:45:00 DIS Outpatient KASH GUADALUPE DO [facility] SDC ABDOMINAL PAIN [id number] 08/14/2013 07:12:00 08/14/2013 23:59:59 CLS Outpatient KASH GUADALUPE DO [facility] PREOP ABDOMINAL PAIN [id number] 05/26/2013 20:30:00 05/27/2013 00:26:00 DIS Emergency JANNETH LI [facility] ER FACIAL/SINUS PAIN [id number] 02/10/2013 22:30:00 02/11/2013 00:44:00 DIS Emergency AUGUSTA AYON DO [facility] ER ABD PAIN [id number] 04/01/2019 11:40:00 PEN Preadmit KASH GUADALUPE DO [facility] ENDO GERD/EPIGASTRIC PAIN/HX ULCERS [id number] 12/05/2016 09:26:00 Document Registration [id number] 12/05/2016 09:26:00 Document Registration [id number] 10/16/2010 07:15:00 Document Registration
[2019-04-01] MEDS ORDERED: proPOfol 200 MG/20 ML (DIPRIVAN) VIAL IV ONE (12:45)
[2019-04-01] MEDS ORDERED: LACTATED RINGERS 1,000 ML IV PRN (12:45)
[2019-04-01] MEDS ORDERED: HURRICAINE EXT TUBE (BENZOCAINE) XX PRN (12:45)
[2019-04-01] MEDS ORDERED: MIDAZOLAM 2 MG/2 ML (VERSED) VIAL ONE (12:45)
[2019-04-01] MEDS ORDERED: HURRICAINE EXT TUBE (BENZOCAINE) ONE (13:50)
--- NOTE | 2019-04-01 13:55 | Progress Note-Pre Operative ---
Pre-Operative Progress Note H&P Reviewed The H&P was reviewed, patient examined and no changes noted. Date Seen by Provider: Apr 01, 2019 Time Seen by Provider: 13:54 Date H&P Reviewed: Apr 01, 2019 Time H&P Reviewed: 13:54 Pre-Operative Diagnosis: epigastric abd pain, hx ulcers, gerd KASH GUADALUPE DO Apr 01, 2019 13:55
--- NOTE | 2019-04-01 14:11 | Progress Note-Post Operative ---
Post-Operative Progess Note Surgeon (s)/Biomedical Equipment Support Specialist (s) Surgeon KASH GUADALUPE DO Biomedical Equipment Support Specialist: na Pre-Operative Diagnosis epigastric abd pain, hx ulcers, gerd Post-Operative Diagnosis duodenitis/gastritis, hiatal hernia Procedure & Operative Findings Date of Procedure 04/01/19 Procedure Performed/Findings egd c biopsies Anesthesia Type per grouter helper Estimated Blood Loss Estimated blood loss (mL): scant Specimens/Packing Specimens Removed antrum, ge KASH GUADALUPE DO Apr 01, 2019 14:11
[2019-04-01] MEDS ORDERED: SUCR1TAB36 PO (14:12)
--- NOTE | 2019-04-01 14:13 | Discharge Inst-Simple/Standard ---
Discharge Inst-Standard Patient Instructions/Follow Up Plan of Care/Instructions/FU: 2-3 weeks Adri Activity as Tolerated: Yes Discharge Diet: Regular Diet KASH GUADALUPE DO Apr 01, 2019 14:13
[2019-04-01 14:30] VITALS: BP 114/70
[2019-04-01 15:10] VITALS: BP 120/76
[2019-04-01 15:30] VITALS: BP 120/76
--- NOTE | 2019-04-01 20:35 | OPERATIVE REPORT ---
DATE OF SERVICE: 04/01/2019 PREOPERATIVE DIAGNOSES: Epigastric abdominal pain, history of ulcer and gastroesophageal reflux disease. POSTOPERATIVE DIAGNOSES: Duodenitis, gastritis, hiatal hernia. PROCEDURE: EGD with biopsy. SURGEON: Kash Rush DO ANESTHESIA: Per MANGA ARTIST. ESTIMATED BLOOD LOSS: Scant. COMPLICATIONS: None. INDICATIONS: The patient is a 38-year-old female who has been having epigastric abdominal pain and reflux symptoms. She has a history of ulcers. She was recommended EGD for further evaluation. She understands risks and benefits of procedure and wished to proceed with procedure. Consent was signed in the chart. PROCEDURE: The patient was taken to the endoscopy suite, placed in left lateral recumbent position. Timeout was performed. Scope was run through the mouth, down the esophagus, stomach and into the duodenum without difficulty. A second portion of the duodenum had normal appearance. First portion of duodenum consistent with duodenitis. Scope was continuously retracted back into the stomach where it was further insufflated. Erythematous changes present suggestive of gastritis. Biopsy of the antrum was obtained. Scope was retroflexed noting some small polyps, the benign appearance and small hiatal hernia, no other pathology noted. Scope was returned to its normal position, slowly withdrawn to the distal esophagus, which had normal appearance with minimal erythematous changes. Biopsy of the GE junction was obtained. Scope was then slowly retracted back to until removed noting no other pathology. RECOMMENDATIONS: The patient will be added Carafate 1 gram four times a day for further management. We will see how she is doing about in 2 to 3 weeks. Await biopsy results. Job ID: [id number] DocumentID: [id number] Dictated Date: 04/01/2019 14:15:49 Electric Vehicle Electrician Date: 04/01/2019 20:35:20 Dictated By: KASH RUSH DO
== END 2019-04-01 15:30 | disposition home or self-care (01) ==
LOC: ENDO 12:17
PROVIDERS: ATTEND Surgery
DX: K29.80 Duodenitis without bleeding (principal); K29.70 Gastritis, unspecified, without bleeding; K44.9 Diaphragmatic hernia without obstruction or gangrene; K21.9 Gastro-esophageal reflux disease without esophagitis; K31.89 Other diseases of stomach and duodenum; G43.909 Migraine, unspecified, not intractable, without status migrainosus; R01.1 Cardiac murmur, unspecified; Z87.19 Personal history of other diseases of the digestive system; Z87.891 Personal history of nicotine dependence

== ENCOUNTER → 2019-05-30 | Outpatient (CLI) | payer BC ==
[2019-05-30 08:23] LABS: BASOPHILS % (AUTO) 1 % (0-10); EOSINOPHILS # (AUTO) 0.1 10^3/uL (0.0-0.3); EOSINOPHILS % (AUTO) 2 % (0-10); HEMATOCRIT 43 % (35-52); HEMOGLOBIN 14.5 G/DL (11.5-16.0); LYMPHOCYTES % (AUTO) 28 % (12-44); MEAN CORPUSCULAR HEMOGLOBIN 30 PG (25-34); MEAN CORPUSCULAR HGB CONC 34 G/DL (32-36); MEAN CORPUSCULAR VOLUME 90 FL (80-99); MEAN PLATELET VOLUME 10.5 FL (7.4-10.4); MONOCYTES # (AUTO) 0.6 X 10^3 (0.0-1.0); MONOCYTES % (AUTO) 9 % (0-12); NEUTROPHILS # (AUTO) 4.3 X 10^3 (1.8-7.8); NEUTROPHILS % (AUTO) 61 % (42-75); PLATELET COUNT 273 10^3/uL (130-400); RED CELL DISTRIBUTION WIDTH 12.5 % (10.0-14.5); WHITE BLOOD COUNT 7.1 10^3/uL (4.3-11.0)
[2019-05-30 08:43] LABS: ALANINE AMINOTRANSFERASE 24 U/L (0-55); ALBUMIN 4.3 GM/DL (3.2-4.5); ALKALINE PHOSPHATASE 60 U/L (40-136); BILIRUBIN,TOTAL 1.9 MG/DL (0.1-1.0); BUN/CREATININE RATIO 16; CALCIUM 9.7 MG/DL (8.5-10.1); CARBON DIOXIDE 26 MMOL/L (21-32); CHLORIDE 108 MMOL/L (98-107); CREATININE SERUM 0.74 MG/DL (0.60-1.30); GFR ESTIMATED > 60; GLUCOSE 79 MG/DL (70-105); SODIUM 141 MMOL/L (135-145); TOTAL PROTEIN 7.2 GM/DL (6.4-8.2)
[2019-05-30 08:44] LABS: CHOLESTEROL 197 MG/DL (< 200); HDL CHOLESTEROL 68 MG/DL (40-60); TRIGLYCERIDES 78 MG/DL (<150); VLDL CHOLESTEROL 16 MG/DL (5-40)
== END ==
LOC: LAB 08:07
PROVIDERS: ATTEND Family Medicine
DX: E28.310 Symptomatic premature menopause (principal); R63.5 Abnormal weight gain; R53.83 Other fatigue; R07.9 Chest pain, unspecified
CPT/HCPCS: 36415; 80053; 80061; 82306; 82672; 84144; 84270; 84402; 84439; 84443; 85025

== ENCOUNTER → 2019-12-02 | Outpatient (CLI) | payer BC, MEDICAID ==
[~2019-12-02] MED LIST changes: +OMEP40CA27 PO; -OMEP40CA36 PO
--- NOTE | 2019-12-02 09:12 | Diagnostic Imaging Report ---
PROCEDURE: CT head without contrast. TECHNIQUE: Multiple contiguous axial images were obtained through the brain without the use of intravenous contrast. Auto Exposure Controls were utilized during the CT exam to meet ALARA standards for radiation dose reduction. INDICATION: Dizziness for one week. No known injury. COMPARISON: None. FINDINGS: No large acute territorial ischemia, mass, or hemorrhage. No midline shift or mass effect. The ventricles, cortical sulci, and basilar cisterns are patent and unremarkable. The calvarium is intact. The visualized paranasal sinuses are clear. IMPRESSION: 1. No large acute territorial ischemia, mass, or hemorrhage. Dictated by: Dictated on workstation # [id number]
== END ==
LOC: RAD 08:29
PROVIDERS: ATTEND Nurse Practitioner Family
DX: R42 Dizziness and giddiness (principal)
CPT/HCPCS: 70450

== ENCOUNTER 2020-06-11 05:36 | Outpatient (RCR) | payer BC ==
[~2020-06-11] VITALS: Ht 149 cm; Wt 51.8 kg
[~2020-06-11 05:36] MED LIST changes: +SERT50TA9 PO
== END 2020-06-11 13:04 | disposition home or self-care (01) ==
LOC: PREOP 05:36
PROVIDERS: ATTEND Surgery
DX: Z01.818 Encounter for other preprocedural examination (principal); K21.9 Gastro-esophageal reflux disease without esophagitis; Z20.828 Contact with and (suspected) exposure to other viral communicable diseases
CPT/HCPCS: 87635

== ENCOUNTER 2020-06-15 09:59 | Day surgery (SDC) | payer BC ==
[~2020-06-15] VITALS: Ht 149 cm; Wt 51.8 kg
[2020-06-15] MEDS ORDERED: LACTATED RINGERS 1,000 ML IV ONE (10:08)
[2020-06-15] MEDS ORDERED: LACTATED RINGERS 1,000 ML IV STA (10:10)
--- NOTE | 2020-06-15 10:14 | Progress Note-Pre Operative ---
Pre-Operative Progress Note H&P Reviewed The H&P was reviewed, patient examined and no changes noted. Date Seen by Provider: Jun 15, 2020 Time Seen by Provider: 10:14 Date H&P Reviewed: Jun 15, 2020 Time H&P Reviewed: 10:14 Pre-Operative Diagnosis: gerd, dysphagia KASH GUADLAUPE DO Jun 15, 2020 10:14
[2020-06-15 10:15] VITALS: BP 125/74
[2020-06-15] MEDS ORDERED: proPOfol 200 MG/20 ML (DIPRIVAN) VIAL IV ONE (10:34)
[2020-06-15] MEDS ORDERED: MIDAZOLAM 2 MG/2 ML (VERSED) VIAL ONE (10:35)
[2020-06-15] MEDS ORDERED: HURRICAINE EXT TUBE (BENZOCAINE) ONE (10:58)
--- NOTE | 2020-06-15 11:14 | Progress Note-Post Operative ---
Post-Operative Progess Note Surgeon (s)/Purchasing Manager (s) Surgeon KASH GUADALUPE DO Purchasing Manager: none Pre-Operative Diagnosis gerd, dysphagia Post-Operative Diagnosis hiatal hernia, gastritis, reflux esophagitis, gastric polyps Procedure & Operative Findings Date of Procedure 06/15/20 Procedure Performed/Findings egd c biopsies, hot bx polypectomy Anesthesia Type per ear mold laboratory technician Estimated Blood Loss Estimated blood loss (mL): none Specimens/Packing Specimens Removed antrum, body, ge, gastric polyp KASH GUADALUPE DO Jun 15, 2020 11:14
[2020-06-15 11:15] VITALS: BP 122/75
[2020-06-15] MEDS ORDERED: SUCR1TAB36 PO (11:15)
--- NOTE | 2020-06-15 11:16 | Discharge Inst-Simple/Standard ---
Discharge Inst-Standard Discharge Medications New, Converted or Re-Newed RX: Transmitted to Pharmacy Patient Instructions/Follow Up Plan of Care/Instructions/FU: 2-3 weeks Adri Activity as Tolerated: Yes Discharge Diet: Regular Diet (gastritis diet) KASH GUADALUPE DO Jun 15, 2020 11:16
[2020-06-15 11:20] VITALS: BP 108/65
[2020-06-15 11:25] VITALS: BP_SYST 107; BP_SYST 119; BP_DIAS 67; BP_DIAS 70
--- NOTE | 2020-06-15 11:27 | Anesthesia-General Post-Op ---
MAC Patient Condition Mental Status/LOC: Same as Preop Cardiovascular: Satisfactory Nausea/Vomiting: Absent Respiratory: Satisfactory Pain: Controlled Complications: Absent Post Op Complications Complications None Follow Up Care/Instructions Patient Instructions None needed. Anesthesiology Discharge Order Discharge Order Patient is doing well, no complaints, stable vital signs, no apparent adverse anesthesia problems. No complications reported per nursing. LOPEZ SALAZAR CRNA Jun 15, 2020 11:27
[2020-06-15] MEDS ORDERED: HURRICAINE EXT TUBE (BENZOCAINE) XX ONE (11:30)
[2020-06-15 11:55] VITALS: BP 125/78
[2020-06-15 12:10] VITALS: BP 125/78
--- NOTE | 2020-06-15 14:16 | OPERATIVE REPORT ---
DATE OF SERVICE: 06/15/2020 PREOPERATIVE DIAGNOSES: Gastroesophageal reflux disease, dysphagia. POSTOPERATIVE DIAGNOSES: Hiatal hernia, gastritis, reflux esophagitis, gastric polyps. SURGEON: Kash Rush DO PROCEDURE: EGD with biopsies, hot biopsy polypectomy. ANESTHESIA: Per CAREER RESOURCE SPECIALIST. ESTIMATED BLOOD LOSS: None. COMPLICATIONS: None. INDICATIONS: The patient is a 39-year-old female who is having worsening GERD and having dysphagia symptoms. She understands risks and benefits and wishes to proceed. Consent is signed and on the chart. DESCRIPTION OF PROCEDURE: The patient was taken to the endoscopy suite, placed in left lateral recumbent position. Timeout was performed. Scope was inserted in mouth, down the esophagus, stomach and into the duodenum without difficulty. There were no polyps, masses or ulcerations within the duodenum. Scope was slowly retracted back into stomach where it was further insufflated. Erythematous changes consistent with some low-grade gastritis was present throughout the stomach. Biopsies of the antrum and body were obtained. Multiple benign appearing polyps were present. Hot biopsy polypectomy was performed on polyp. Scope was retroflexed noting hiatal hernia, no other pathology. Scope was returned to its normal position, slowly withdrawn to the distal esophagus. Biopsy of the GE junction was obtained. Some changes consistent with reflux esophagitis present. No polyps, masses or ulcerations. Scope was slowly retracted back until completely removed. The patient tolerated procedure well without any complications. She was taken to recovery room in stable condition. RECOMMENDATIONS: The patient to continue on current medications. We will add Carafate 1 gram four times a day. We will follow up on biopsies in 2 to 3 weeks. Job ID: [id number] DocumentID: [id number] Dictated Date: 06/15/2020 11:19:40 Otolaryngology Nurse Date: 06/15/2020 14:14:57 Dictated By: KASH RUSH DO [facility]
== END 2020-06-15 12:10 | disposition home or self-care (01) ==
LOC: ENDO 09:59
PROVIDERS: ATTEND Surgery
DX: K21.0 Gastro-esophageal reflux disease with esophagitis (principal); K29.50 Unspecified chronic gastritis without bleeding; K31.9 Disease of stomach and duodenum, unspecified; K31.7 Polyp of stomach and duodenum; K44.9 Diaphragmatic hernia without obstruction or gangrene; K29.70 Gastritis, unspecified, without bleeding; F41.9 Anxiety disorder, unspecified; R01.1 Cardiac murmur, unspecified; Z79.890 Hormone replacement therapy; Z79.899 Other long term (current) drug therapy; Z87.891 Personal history of nicotine dependence
CPT/HCPCS: 88305

== ENCOUNTER → 2020-11-23 | Outpatient (CLI) | payer BC ==
[~2020-11-23] MED LIST changes: -CLIN300C11 PO; +CLIN300C12 PO; +SERT-413 PO; -SERT50TA9 PO
[2020-11-23 13:09] LABS: BASOPHILS # (AUTO) 0.1 10^3/uL (0.0-0.1); BASOPHILS % (AUTO) 1 % (0-10); EOSINOPHILS # (AUTO) 0.2 10^3/uL (0.0-0.3); EOSINOPHILS % (AUTO) 3 % (0-10); HEMATOCRIT 42 % (35-52); HEMOGLOBIN 13.5 g/dL (11.5-16.0); LYMPHOCYTES # (AUTO) 2.5 10^3/uL (1.0-4.0); LYMPHOCYTES % (AUTO) 37 % (12-44); MEAN CORPUSCULAR HEMOGLOBIN 30 pg (25-34); MEAN CORPUSCULAR HGB CONC 32 g/dL (32-36); MEAN CORPUSCULAR VOLUME 94 fL (80-99); MEAN PLATELET VOLUME 10.7 fL (9.0-12.2); MONOCYTES # (AUTO) 0.6 10^3/uL (0.0-1.0); MONOCYTES % (AUTO) 8 % (0-12); NEUTROPHILS # (AUTO) 3.4 10^3/uL (1.8-7.8); NEUTROPHILS % (AUTO) 51 % (42-75); PLATELET COUNT 252 10^3/uL (130-400); WHITE BLOOD COUNT 6.8 10^3/uL (4.3-11.0)
[2020-11-23 13:14] LABS: BILIRUBIN,URINE NEGATIVE (NEGATIVE); CLARITY,URINE CLEAR; COLOR,URINE YELLOW; GLUCOSE, URINE (UA) NEGATIVE (NEGATIVE); KETONES,URINE TRACE (NEGATIVE); LEUKOCYTE ESTERASE ,URINE NEGATIVE (NEGATIVE); NITRITE,URINE NEGATIVE (NEGATIVE); PROTEIN,URINE NEGATIVE (NEGATIVE)
[2020-11-23 13:21] LABS: WBC,URINE 0-2 /HPF
[2020-11-23 13:22] LABS: BACTERIA,URINE MODERATE /HPF
[2020-11-23 13:35] LABS: ALANINE AMINOTRANSFERASE 25 U/L (0-55); ALBUMIN 4.3 GM/DL (3.2-4.5); ALKALINE PHOSPHATASE 55 U/L (40-136); BILIRUBIN,TOTAL 0.6 MG/DL (0.1-1.0); BUN/CREATININE RATIO 16; CALCIUM 9.5 MG/DL (8.5-10.1); CARBON DIOXIDE 26 MMOL/L (21-32); CHLORIDE 107 MMOL/L (98-107); GFR ESTIMATED > 60; GLUCOSE 76 MG/DL (70-105); POTASSIUM 4.3 MMOL/L (3.6-5.0); SODIUM 140 MMOL/L (135-145); TOTAL PROTEIN 6.9 GM/DL (6.4-8.2)
== END ==
LOC: LAB 12:45
PROVIDERS: ATTEND Nurse Practitioner Family
DX: R53.1 Weakness (principal); R53.83 Other fatigue
CPT/HCPCS: 36415; 80053; 81000; 85025; 87088

== ENCOUNTER 2023-01-20 06:39 | Emergency (ER) | payer OTHER ==
[~2023-01-20] VITALS: Ht 147 cm; Wt 56.0 kg
[~2023-01-20 06:39] MED LIST changes: +ACYC-112; -ACYC800T; +CLIN-144 PO; -CLIN300C12 PO; +DICY20TA PO; -DICY20TA10 PO; -OMEP40CA27 PO; +OMEP40CA6 PO
[2023-01-20 06:48] VITALS: BP 124/65
[2023-01-20] MEDS ORDERED: TETANUS,DIPTH,PERTUSS P/F (BOOSTRIX) 0.5 ML VIAL IM ONE (07:15)
--- NOTE | 2023-01-20 08:02 | ED Head Injury ---
General Chief Complaint: Laceration Stated Complaint: FALL,HEAD LAC Nursing Triage Note: ARRIVED VIA AMB TO ROOM 06. STATES ONE HOUR AGO SHE GOT OUT OF BED AND TRIPPED AND FELL HITTING HEAD ON A ROWING MACHINE. DENIES LOC. DENIES TAKING BLOOD THINNERS. PT WAS DRINKING LAST NIGHT. Source: patient Exam Limitations: no limitations History of Present Illness Date Seen by Provider: Jan 20, 2023 Time Seen by Provider: 06:51 Initial Comments This 42-year-old woman presents to the emergency room with a laceration on her frontal scalp after tripping and falling and striking her head on a rowing machine. She was staying at a friend's house with an unfamiliar environment. She was out drinking with friends last night but does not appear intoxicated now. She has a laceration approximately 3.5 cm along the hairline of the frontal scalp. She denies any loss of consciousness. She denies symptoms of concussion at this time such as blurry vision, confusion, nausea, etc. She does have some headache and tenderness around the injury. Bleeding is minimal. It has been 5 or 6 years since her last tetanus immunization. No other injuries were identified. The injury occurred early this morning. Allergies and Home Medications Allergies Coded Allergies: No Known Drug Allergies (Unverified , 06/08/20) Patient Home Medication List Home Medication List Reviewed: Yes Estradiol (Estradiol Patch Twice Weekly 0.1mg/hr) 1 Each Patch.tdsw, 1 PATCH TOP twice a week, (Reported) Entered as Reported by: BARBY PERRY on 03/25/19 1522 Pantoprazole Sodium (Protonix) 40 Mg Tablet.dr, 40 MG PO DAILY, (Reported) Entered as Reported by: CHASE BAUMANN on 01/10/17 1547 Sertraline HCl (Sertraline HCl) 50 Mg Tablet, 50 MG PO DAILY, (Reported) Entered as Reported by: CHASE BAUMANN on 06/08/20 1406 Sucralfate (Carafate) 1 Gm Tablet, 1 GM PO QID Prescribed by: KASH GUADALUPE on 06/15/20 1115 Review of Systems Review of Systems Constitutional: no symptoms reported Eyes: No Symptoms Reported Ears, Nose, Mouth, Throat: no symptoms reported Respiratory: no symptoms reported Cardiovascular: no symptoms reported Gastrointestinal: no symptoms reported Genitourinary: no symptoms reported : No Musculoskeletal: no symptoms reported Skin: see HPI Psychiatric/Neurological: No Symptoms Reported Past Yngcjlq-Dicvjl-Dazfek Hx Patient Social History Tobacco Use?: Yes Smoking Status: Current Everyday Smoker Substance use?: No Alcohol Use?: Yes Alcohol Frequency: Several times a month Immunizations Up To Date Tetanus Booster (TDap): Less than 5yrs PED Vaccines UTD: Yes Seasonal Allergies Seasonal Allergies: No Past Medical History Surgeries: Yes (ECTOPIC REMOVED, C/S X2, DX LAPAROSCOPY, SALPINGECTOMY) Appendectomy, Section, Gallbladder, Hysterectomy Respiratory: No Cardiac: Yes (HX. OF MURMUR ; BORN WITH MURMUR) Heart Murmur Neurological: Yes Headaches /Migraines Reproductive Disorders: Yes (CPP, ENOMETRIOSIS) Female Reproductive Disorders: Endometriosis, Ovarian Cyst ESTHETICIAN History: Hysterectomy Sexually Transmitted Disease: Yes (HPV) Genitourinary: No Gastrointestinal: No Gastroesophageal Reflux, Ulcer Musculoskeletal: No Chronic Back Pain Endocrine: No HEENT: No (GLASSES, CONTACTS) Loss of Vision: Denies Hearing Impairment: Denies Cancer: No Psychosocial: Yes Anxiety, Depression Integumentary: No Blood Disorders: No Adverse Reaction/Blood Tranf: No (N/A) Family Medical History No Pertinent Family Hx Physical Exam Vital Signs Vital Signs - First Documented 01/20/23 06:48 Temp 36.3 Pulse 89 Resp 16 B/P (MAP) 124/65 (84) Pulse Ox 95 O2 Delivery Room Air Capillary Refill : Less Than 3 Seconds Height, Weight, BMI Height: 4'11.00" Weight: 111lbs. 0.0oz. 50.730002yw; 25.00 BMI Method:Stated General Appearance: WD/WN, no apparent distress HEENT: PERRL/EOMI, other (Irregular 3.5 cm laceration into the subcutaneous tissue in the hairline of the frontal scalp with mild bleeding) Neck: normal inspection Respiratory: normal breath sounds, no respiratory distress Extremities: normal inspection Psychiatric: alert, oriented x 3 Crainal Nerves: normal hearing, normal speech, PERRL Coordination/Gait: normal gait Motor/Sensory: no motor deficit Skin: normal color, warm/dry, other (as above) [place] Coma Score Best Eye Response: (4) Open Spontaneously Best Verbal Response: (5) Oriented Best Motor Response: (6) Obeys Commands Chucho Total: 15 Procedures/Interventions Wound Location: Scalp Other Wound Location Central frontal scalp along the hair line Wound Length (cm): 3.5 Wound's Depth, Shape: irregular, sub Q Wound Explored: clean Irrigated w/ Saline (ccs): 250 Betadine Prep?: Yes Anesthesia: 1% Lidocaine Volume Anesthetic (ccs): 6 Suture: Prolene Suture Size: 5-0 Number of Sutures: 5 Layer Closure?: 1 Sterile Dressing Applied?: No Progress Wound was examined. Surface was sprayed with lidocaine. Skin was then cleaned with alcohol and local anesthetic was provided with injection. Wound was then irrigated with sterile water and chlorhexidine and then rinsed with sterile water. Betadine prep was applied. Wound was approximated with 5 interrupted sutures of 5-0 Prolene. Bleeding was well controlled. Patient tolerated the procedure well. There was no bleeding and wound was in the hairline, so no dressing was applied. Progress/Results/Core Measures Results/Orders My Orders Medications Given in ED Vital Signs/I&O Blood Pressure Mean: 84 Progress Progress Note : Progress Note See procedure note. Patient was provided a tetanus booster. Discharge instructions were reviewed with patient. Departure Impression Primary Impression: Laceration of scalp Qualified Codes: S01.01XA - Laceration without foreign body of scalp, initial encounter Additional Impression: Fall on same level as cause of accidental injury Disposition: 01 HOME, SELF-CARE Condition: Improved Departure-Patient Inst. Decision time for Depature: 07:57 Referrals: IVETTE MATOS MD (PCP/Family) Primary Care Physician Patient Instructions: Head Injury in Adults, Laceration Repair With Stitches (DC) Add. Discharge Instructions: Keep the wound clean and dry. You may start showering this evening. When showering, allow shampoo/soap and water to run over the wound but do not scrub directly on the wound. Do not submerge until after sutures are removed. Do not put any hair product on the wound. Antibiotic ointments or moisturizers are not necessary. Moisturizer or other skin therapy may be used after the wound is completely closed over and scabbing sloughs off. Do not use any antibiotic ointment or other topical products until at least 24 hours after sutures have been placed. Monitor for signs of infection such as increasing redness, increasing swelling, puslike drainage, or fever. Return to care promptly if you notice the symptoms. Return to the emergency room promptly if you are having escalating symptoms of concussion or brain injury such as confusion, escalating headache, blurry vision, nausea or vomiting, etc. Return in 7 to 8 days to have sutures removed. You have [address] Expect to be sore in your arm for several days from your tetanus shot. You may even have a low-grade fever or some chills. Call or return to care if you have any other problems or concerns. All discharge instructions reviewed with patient and/or family. Voiced understanding. JONAS SMITH MD Jan 20, 2023 08:02
== END 2023-01-20 08:10 | disposition home or self-care (01) ==
LOC: EDUNIT# 06:39 → ER 06:45
DX: S01.01XA Laceration without foreign body of scalp, initial encounter (principal); F17.200 Nicotine dependence, unspecified, uncomplicated; Z23 Encounter for immunization; W01.198A Fall on same level from slipping, tripping and stumbling with subsequent striking against other object, initial encounter
CPT/HCPCS: 12002; 90715